=== PATIENT | female | born 2000 | race Caucasian/White ===

== ENCOUNTER 2019-05-31 14:27 | Emergency (ER) | payer MEDICAID, SELFPAY ==
[2019-05-31 14:28] VITALS: BP 165/89; PULSE 95; RESP 15; TEMP 36.1; O2SAT 100; BMI 23.3
--- NOTE | 2019-05-31 14:39 | ED.DCSUM_ITS ---
History of Present Illness Chief Complaint: Female C/O Detail of Chief Complaint: Irregular period Informant: Patient Onset: Weeks Current Severity: Mild Maximum Severity: Mild Narrative: Patient presents with irregular period. She states she is normally very regular with her menstrual cycle. This time she was 2 weeks late for her. But blood her normal 4 days. After her bleeding had stopped she restarted bleeding after 2 days, this is on May 28. Bleeding at this time was very heavy with large clots. Patient states the bleeding is improved. She is only changing a tampon or pad every 4 hours or so. She denies vaginal discharge. She is having abdominal cramping. Past Medical History - Allergies and Home Meds Allergies/Adverse Reactions: Allergies No Known Allergies Allergy (Verified 05/31/19 14:28) Primary Care Physician: Bette Alejandra MD [Primary Care Provider] - Doctors: Dr. Dyer Prior records reviewed: Yes Past Medical History: - - Reviewed Surgical History: no surgical history Lives: With Family Smoking Status: Never smoker Review of Systems General: Denies: Chills, Fever Eyes: Denies: Visual changes - bilaterally ENT: Denies: Bilateral ear pain Cardiovascular: Denies: Chest pain Respiratory: Denies: Dyspnea, Cough Gastrointestinal: Reports: Abdominal pain. Denies: Nausea, Vomiting, Diarrhea Genitourinary: Denies: Dysuria Musculoskeletal: Denies: Extremity Pain Skin: Denies: Rash Neurological: Denies: Headache Endocrine: Denies: Polyuria, Polydipsia Allergy: Denies: Uticaria Physical Exam Vital Signs/Narrative: Vital Signs Temp Pulse Resp BP Pulse Ox 05/31/19 14:28 97.0 F L 95 15 165/89 H 100 Inital Vital Signs reviewed: Yes General: Well nourished, Well developed Head: Normocephalic ENT: Moist mucous membranes Neck: Supple Cardiovascular: Regular rate, Regular rhythm Respiratory: No distress, CTA bilaterally Abdomen: Soft, Tender - Mild supra pubic tenderness.. Negative for: Guarding, Rebound tenderness Extremities: Nontender Skin: Normal color Neurological: Alert, Oriented x3 Psychological: Normal affect Diagnostic/Tx/Re-eval Impressions Obstetrics Ultrasound 05/31/19 16:45 IMPRESSION: * No evidence of an IUP on this study. No visualized acute process. Electronically Signed: Tello Bowden MD at 18:18 EDT , Service support , 05/31/19 16:45 Transvaginal w/Preg US [US] Stat Laboratory Results 05/31/19 05/31/19 05/31/19 15:10 15:20 15:20 WBC 6.4 RBC 4.57 Hgb 13.6 Hct 41.4 MCV 90.6 MCH 29.8 MCHC 32.9 RDW Std Deviation 38.5 RDW Coeff of Gladys 11.6 Plt Count 309 MPV 10.6 Sodium 141 Potassium 3.9 Chloride 105 Carbon Dioxide 28.0 Anion Gap 8 BUN 11 Creatinine 0.78 Estim Creat Clear Calc 94.38 Est GFR (MDRD) Af Amer 119 Est GFR (MDRD) Non-Af 98 BUN/Creatinine Ratio 14.0 Glucose 99 Calcium 9.1 HCG, Quant Urine Color Yellow Urine Clarity Sl Cldy Urine pH 5.0 Ur Specific [place] 1.015 Urine Protein Negative Urine Glucose (UA) Normal Urine Ketones Negative Urine Occult Blood 250 H Urine Nitrite Negative Urine Bilirubin Negative Urine Urobilinogen Normal Ur Leukocyte Esterase Negative Urine RBC 0-5 SEEN Urine WBC 0 SEEN Ur Squamous Epith Cells 0 SEEN Urine Bacteria RARE Urine Mucus 0 SEEN Blood Type 05/31/19 05/31/19 15:20 17:14 WBC RBC Hgb Hct MCV MCH MCHC RDW Std Deviation RDW Coeff of Gladys Plt Count MPV Sodium Potassium Chloride Carbon Dioxide Anion Gap BUN Creatinine Estim Creat Clear Calc Est GFR (MDRD) Af Amer Est GFR (MDRD) Non-Af BUN/Creatinine Ratio Glucose Calcium HCG, Quant 367 H Urine Color Urine Clarity Urine pH Ur Specific [place] Urine Protein Urine Glucose (UA) Urine Ketones Urine Occult Blood Urine Nitrite Urine Bilirubin Urine Urobilinogen Ur Leukocyte Esterase Urine RBC Urine WBC Ur Squamous Epith Cells Urine Bacteria Urine Mucus Blood Type O POSITIVE - Medical Decision Making Patient was given Toradol and IV fluids. Test results are discussed with her. hCG is elevated but ultrasound does not show any evidence of an IUP. She may be very early in or may have miscarried in her a past majority of the products. She will be given a lab order to have her quant repeated in 48 [address] I spoke with Dr. Will and patient is to follow-up in their office. ED Disposition - Plan for ED Patient: Disposition: Home or Assisted Living Diagnosis: Threatened miscarriage Instructions: POSSIBLE MISCARRIAGE (Threatened ) Referrals: Jessica Will MD [STAFF PHYSICIAN] - 3-5 Days Additional Instructions: Have your bloodwork repeated on Sunday afternoon as discussed.
[2019-05-31] MEDS: 0.9% Normal Saline 1,000 ML 150 ML IV (15:20)
[2019-05-31] MEDS: Ketorolac 30 MG/ML Syringe IV (15:24)
[2019-05-31 15:26] LABS: Mucous, Urine 0 SEEN /hpf (<or=2+); Squamous Epithelial Cells - UA 0 SEEN /hpf (5-10); White Blood Cells 0 SEEN /hpf (0-5)
[2019-05-31 15:34] LABS: Glucose, Dipstick Normal (Normal); Ketone-Dipstick Negative (Negative); Leukocyte Esterase-Dipstick Negative /ul (Negative); Nitrite-Dipstick Negative (Negative); Occult Blood-Urine 250 /ul (Negative); Protein-Dipstick Negative (Negative); Specific Gravity, Urine 1.015 (1.002-1.030); Urine Bilirubin Dipstick Negative (Negative); Urine Urobilinogen Normal (Normal)
[2019-05-31 15:38] LABS: Hematocrit 41.4 % (37-47); Hemoglobin 13.6 g/dL (12.0-15.0); Mean Corp Hgb Conc 32.9 g/dL (32-36); Mean Corpuscular Hgb 29.8 pg (27.0-32.0); Mean Corpuscular Volume 90.6 fL (81-99); Mean Platelet Vol. 10.6 fl (6.2-12.0); Platelet Count 309 K/mm3 (150-450); RBC Distribution Width CV 11.6 % (11.6-14.6); RBC Distribution Width SD 38.5 fl (35.1-43.9); Red Blood Count 4.57 M/mm3 (4.2-5.4); White Blood Count 6.4 K/mm3 (4.4-11.0)
[2019-05-31 15:42] LABS: Color, Urine Yellow (Yellow); Urine Clarity Sl Cldy (Clear)
[2019-05-31 15:45] LABS: Anion Gap 8 (5-15); BUN 11 mg/dL (7-18); Calcium,Total 9.1 mg/dL (8.5-10.1); Chloride 105 mmol/L (98-107); Creatinine, Serum 0.78 mg/dL (0.55-1.02); EST Glomerular Filtration Rate 98 mL/min (>60); Est Glom Filt Rate - Afr Amer 119 mL/min (>60); Estimated Creatinine Clearance 94.38 ml/min; Glucose 99 mg/dL (74-106); Potassium 3.9 mmol/L (3.5-5.1); Sodium Level 141 mmol/L (136-145)
[2019-05-31 15:48] LABS: Bacteria RARE /hpf (None Seen); Red Blood Cells-Urine 0-5 SEEN /hpf (0-5)
[2019-05-31 15:49] LABS: hCG Titer Quant., Serum 367 mIU/mL (1-3)
[2019-05-31 16:18] VITALS: RESP 16
[2019-05-31 16:40] VITALS: BP 98/53; PULSE 55; RESP 12; O2SAT 99
--- NOTE | 2019-05-31 16:45 | US_ITS ---
STUDY: FIRST TRIMESTER OBSTETRICAL ULTRASOUND REASON FOR EXAM: Female, 19 years old SBleedingSUS Transvag with TECHNIQUE: Transabdominal and Transvaginal TECHNICAL QUALITY: Adequate. PRIOR ULTRASOUND: None. FINDINGS: There is no demonstrated intrauterine gestational sac. The There is no demonstrated yolk sac. There is no demonstrated embryo ( pole). The uterus measures 7.2 x 4.9 x 3.8 cm. There is no demonstrated uterine fibroid. The cervix is closed. Normal endometrial echo measuring 7.3 mm. The right ovary measures 3.4 x 1.7 cm. There is no right ovarian cyst. There is no visualized right adnexal mass or complex lesion. The left ovary measures 2.3 x 1.6 cm. There is no left ovarian cyst. There is no visualized left adnexal mass or complex lesion. There is no fluid in the cul de sac. US/Transvaginal w/Preg US IMPRESSION: * No evidence of an IUP on this study. No visualized acute process. Electronically Signed: Tello Bowden MD at 18:18 EDT , Service support ,
[2019-05-31 18:39] VITALS: BP 104/67; PULSE 64; RESP 12; O2SAT 98
== END 2019-05-31 19:23 | disposition home or self-care (01) ==
PROVIDERS: Emergency Provider Emergency Medicine; Family Provider Pediatrics; PCP Pediatrics
DX: O20.0 Threatened abortion (principal)
CPT/HCPCS: 36415; 76817; 80048; 81001; 84702; 85027; 86900; 86901; 96361; 96374; 99283; J7030; A4216

== ENCOUNTER → 2019-06-02 | Outpatient (CLI) | payer MEDICAID, SELFPAY ==
[2019-05-31 14:28] VITALS: BMI 23.3
[2019-06-02 18:20] LABS: hCG Titer Quant., Serum 214 mIU/mL (1-3)
== END | disposition home or self-care (01) ==
PROVIDERS: Family Provider Pediatrics; PCP Pediatrics; Referring Provider Emergency Medicine; Visit Provider Emergency Medicine
DX: O46.90 Antepartum hemorrhage, unspecified, unspecified trimester (principal); Z3A.00 Weeks of gestation of pregnancy not specified
CPT/HCPCS: 36415; 84702

== ENCOUNTER 2019-10-09 21:33 | Emergency (ER) | payer MEDICAID, SELFPAY ==
[2019-10-09 21:34] VITALS: BP 128/97; PULSE 79; RESP 18; TEMP 36.7; O2SAT 99; BMI 24.5
--- NOTE | 2019-10-09 22:13 | US_ITS ---
STUDY: FIRST TRIMESTER OBSTETRICAL ULTRASOUND REASON FOR EXAM: Female, 19 years old N AND V LMP: 08/21/2019 TECHNIQUE: Transvaginal TECHNICAL QUALITY: Adequate. PRIOR ULTRASOUND: None. FINDINGS: There is visualization of a single gestational sac in a normal intrauterine position. The mean sac diameter (MSD) measures 2.1 cm, indicating an estimated gestational age (EGA) of 7 weeks, 1 days. The gestational sac shape is within normal limits. There is a visualized yolk sac. The yolk sac measures 0.28 mm. The placenta is non-visualized. There is visualization of a live embryo. The crown-rump length (CRL) measures 0.79 cm, indicating an estimated gestational age (EGA) of 6 weeks, 6 days. There is demonstrated cardiac activity with a heart rate of 122 bpm. The estimated gestation age (EGA) by LMP is 7 weeks, 0 days. The estimated date of delivery (CAM[place]) by LMP is 05/27/2020. The estimated gestation age (EGA) by US is 7 weeks, 0 days. The estimated date of delivery (CAM[place]) by US is 05/27/2020. The uterus measures 8.1 x 6.9 x 4.6. There is no demonstrated uterine fibroid. The cervix is closed. The right ovary measures 2.7 x 2.3 x 1.3. Hypoechoic region within the right ovary consistent with cyst measuring 1.2 x 1.3 x 0.8 cm. There is no visualized right adnexal mass or complex lesion. The left ovary measures 2.8 x 1.9 x 1.5. There is no left ovarian cyst. There is no visualized left adnexal mass or complex lesion. There is no fluid in the cul de sac. US/Transvaginal w/Preg US IMPRESSION: 1. Live intrauterine with estimated gestational age by ultrasound of 7 weeks and 0 days with estimated date of confinement 05/27/2020. Electronically Signed: Félix Sewell DO at 23:42 EDT , Service support ,
[2019-10-09] MEDS: 0.9% Normal Saline 1,000 ML 1000 ML IV (22:52)
[2019-10-09] MEDS: Ondansetron 4 MG/2 ML Vial IV (22:52)
[2019-10-09] MEDS: Acetaminophen 500 MG Tablet 1000 MG PO (22:52)
[2019-10-09 23:14] LABS: Bacteria 0 SEEN /hpf (None Seen); Mucous, Urine 0 SEEN /hpf (<or=2+)
[2019-10-09 23:34] LABS: Color, Urine Yellow (Yellow); Glucose, Dipstick Normal (Normal); Leukocyte Esterase-Dipstick Negative /ul (Negative); Nitrite-Dipstick Negative (Negative); Occult Blood-Urine 25 /ul (Negative); Protein-Dipstick 30 mg/dl (Negative); Specific Gravity, Urine 1.025 (1.002-1.030); Urine Clarity Sl. Cloudy (Clear); Urine Urobilinogen Normal (Normal)
[2019-10-09 23:38] LABS: Urine Bilirubin Dipstick 1 mg/dL (Negative)
[2019-10-09 23:45] LABS: Absolute Lymphocyte Count 1.94 X10^3/uL (0.83-4.51); Absolute Neutrophil Count 7.3 X10^3/uL (2.0-7.7); Basophil# 0.02 X10^3/uL; Basophil% 0.2 % (0-1); Eosinophil# 0.01 X10^3/uL; Eosinophils% 0.1 % (0-5); Hematocrit 36.1 % (37-47); Hemoglobin 12.6 g/dL (12.0-15.0); Lymphocyte # 1.94 X10^3/ul (4.0); Lymphocyte % 19.4 % (19-41); Mean Corp Hgb Conc 34.9 g/dL (32-36); Mean Corpuscular Hgb 30.9 pg (27.0-32.0); Mean Corpuscular Volume 88.5 fL (81-99); Mean Platelet Vol. 10.4 fl (6.2-12.0); Monocyte# 0.65 X10^3/uL; Monocyte% 6.5 % (0-10); NRBC Flagged by Analyzer 0 % (0-5); Neutrophil # 7.34 X10^3/uL (2.7-7.7); Neutrophil % 73.6 % (47-70); Platelet Count 317 K/mm3 (150-450); RBC Distribution Width CV 11.7 % (11.6-14.6); RBC Distribution Width SD 37.2 fl (35.1-43.9); Red Blood Count 4.08 M/mm3 (4.2-5.4)
[2019-10-09 23:58] LABS: Ketone-Dipstick 150 mg/dl (Negative)
[2019-10-10 00:26] LABS: Red Blood Cells-Urine 10-25 SEEN /hpf (0-5); Squamous Epithelial Cells - UA 10-25 SEEN /hpf (5-10); White Blood Cells 10-25 SEEN /hpf (0-5)
[2019-10-10 00:34] LABS: Anion Gap 11 (5-15); BUN 12 mg/dL (7-18); BUN/Creat Ratio 20.8 RATIO (10-20); Chloride 106 mmol/L (98-107); Creatinine, Serum 0.58 mg/dL (0.55-1.02); EST Glomerular Filtration Rate 140 mL/min (>60); Est Glom Filt Rate - Afr Amer 169 mL/min (>60); Estimated Creatinine Clearance 121.35 ml/min; Glucose 88 mg/dL (74-106); Potassium 3.6 mmol/L (3.5-5.1); Sodium Level 139 mmol/L (136-145)
--- NOTE | 2019-10-10 00:44 | ED.VISSUMM ---
- ER Visit Summary Date of Service: 10/10/19 Chief Complaint: Vomiting and History of Present Illness: The patient is a 19 F who cannot remember the name of her OB. She reports she has an appointment in 4 days. She has not seen her for this . She is a 4 weeks by her last menstrual period. She had a miscarriage in April 2019. Patient reports that she is had nausea for the past 2 weeks. She reports she is vomiting proximate 10 times a day. No blood in her emesis. She has had diarrhea on and off. She had a bowel movement today that was solid. She denies any blood in her stools or black tarry stools. She reports that she has a sharp lower left pain that began on the right over here. It is 7 out of 10 at worst and 6 out of 10 currently. Is worsened by nothing relieved by heating pad. She denies any other complaints. No dysuria or frequency. Physical Examination: Vitals: Stable. Afebrile. General: Well-nourished and well-developed. Head: Normocephalic atraumatic. Neck: Supple, no lymphadenopathy. No JVD. Nontender. Cardiovascular: Regular rate and rhythm. No murmurs. Respiratory: No respiratory distress. Clear to auscultation bilaterally. Abdominal: Soft, mild suprapubic tenderness to palpation, nondistended, normal bowel sounds. No guarding, rebound, or peritoneal signs. Back: Nontender. Extremities: Nontender, no edema. Skin: Normal color, no rash. Neurologic: Alert and oriented ?3. Cranial nerves II through XII are intact. Normal strength and sensation. Psych: Normal affect. Test Results: CBC shows hematocrit of 36.1 segmented for 74. Chem-7 shows a BUN/creatinine ratio of 20.8. UA is contaminated. 10-25 epithelial cells, 10-25 red blood cells, 10-25 white blood cells. There is no bacteria. This was sent for culture. Clinical Impression(s) from Imaging Studies Obstetrics Ultrasound 10/09/19 22:13 IMPRESSION: 1. Live intrauterine with estimated gestational age by ultrasound of 7 weeks and 0 days with estimated date of confinement 05/27/2020. Electronically Signed: Félix Sewell DO at 23:42 EDT , Service support , Emergency Department Course and Treatment: Patient was treated with a dose of Zofran. She was given a liter normal saline. She is actually eating in the room now and is resting comfortably. Treatment Plan: Patient be discharged instructions to follow-up with her OB in 4 days previously scheduled. She given prescription for Zofran. Return to the emergency department for any worsening symptoms. Disposition: To home in improved and stable condition. Impression: 1. First trimester . 2. Vomiting. This note was generated with [employer] software. It may contain incorrect words, spelling, and punctuation that were not noted in review of the chart prior to signing ED Disposition - Plan for ED Patient: Instructions: Hyperemesis Gravidarum (Severe Morning Sickness) Prescriptions: Ondansetron [Zofran Odt] 4 mg PO Q8H PRN PRN #10 tablet PRN Reason: Nausea Referrals: Doctor,Your [STAFF PHYSICIAN] - Keep Luis Enrique appointment
[2019-10-10 01:04] VITALS: BP 104/77; PULSE 67; RESP 12; O2SAT 97
[2019-10-10 01:47] LABS: hCG Titer Quant., Serum 54961 mIU/mL (1-3)
== END 2019-10-10 01:04 | disposition home or self-care (01) ==
LOC: ED 21:55
PROVIDERS: Emergency Provider Emergency Medicine
DX: O21.9 Vomiting of pregnancy, unspecified (principal); Z3A.01 Less than 8 weeks gestation of pregnancy
CPT/HCPCS: 76817; 80048; 81001; 84702; 85025; 87086; 87088; 96361; 96374; 99284; J7030; A4216; J2405

== ENCOUNTER → 2019-11-07 15:20 | Outpatient (CLI) | payer MEDICAID, SELFPAY ==
[2019-10-09 21:34] VITALS: BMI 24.5
[2019-11-07 17:06] LABS: Absolute Lymphocyte Count 1.42 X10^3/uL (0.83-4.51); Absolute Neutrophil Count 7.9 X10^3/uL (2.0-7.7); Basophil# 0.03 X10^3/uL; Basophil% 0.3 % (0-1); Eosinophil# 0.05 X10^3/uL; Eosinophils% 0.5 % (0-5); Hematocrit 37.5 % (37-47); Hemoglobin 12.9 g/dL (12.0-15.0); Lymphocyte # 1.42 X10^3/ul (4.0); Lymphocyte % 14.2 % (19-41); Mean Corp Hgb Conc 34.4 g/dL (32-36); Mean Corpuscular Hgb 30.2 pg (27.0-32.0); Mean Corpuscular Volume 87.8 fL (81-99); Mean Platelet Vol. 11.9 fl (6.2-12.0); Monocyte# 0.59 X10^3/uL; Monocyte% 5.9 % (0-10); NRBC Flagged by Analyzer 0 % (0-5); Neutrophil % 78.7 % (47-70); Platelet Count 245 K/mm3 (150-450); RBC Distribution Width CV 11.9 % (11.6-14.6); RBC Distribution Width SD 37.6 fl (35.1-43.9); Red Blood Count 4.27 M/mm3 (4.2-5.4)
[2019-11-07 17:57] LABS: Color, Urine Yellow (Yellow); Glucose, Dipstick Normal (Normal); Ketone-Dipstick 15 mg/dl (Negative); Leukocyte Esterase-Dipstick 25 /ul (Negative); Nitrite-Dipstick Negative (Negative); Occult Blood-Urine Negative /ul (Negative); Protein-Dipstick 15 mg/dl (Negative); Specific Gravity, Urine 1.025 (1.002-1.030); Urine Bilirubin Dipstick Negative (Negative); Urine Clarity Cloudy (Clear); Urine Urobilinogen 1 mg/dl (Normal)
[2019-11-07 18:04] LABS: Amphetamine Urine VISTA NEGATIVE (<1000 ng/mL); Barbiturate Urine VISTA NEGATIVE (< 200 ng/mL); Benzodiazepine Urine VISTA NEGATIVE (< 200 ng/mL); Cocaine Urine VISTA NEGATIVE (< 300 ng/mL); Ecstacy Urine VISTA NEGATIVE (< 500 ng/mL); Methadone Urine VISTA NEGATIVE (< 300 ng/mL); PCP Urine VISTA NEGATIVE (< 25 ng/mL); THC Urine VISTA POSITIVE (< 50 ng/mL); Thyroid Stim Hormone (TSH) 1.08 uIU/mL (0.358-3.74); Vista UDS pH Range 6
[2019-11-10 10:28] LABS: HIV - WCH Non-Reactive (Nonreactive); Hepatitis B Surface Antigen Non-Reactive (Nonreactive); Hepatitis C Antibody Non-Reactive (Nonreactive); Rubella IgG 8.5 IU/mL
[2019-11-11 20:07] LABS: Chlamydia By Nucleic Acid AMP Negative (Negative)
[2019-11-12 03:49] LABS: Gonococcus By Nucleic Acid AMP Negative (Negative)
[2019-11-13 00:57] LABS: Prenatal RPR NONREACTIVE (NONREACTIVE)
[2019-11-13 17:56] LABS: HPV Reflexed? NOT INDICATED
== END ==
PROVIDERS: Referring Provider Obstetrics & Gynecology; Visit Provider Obstetrics & Gynecology
DX: Z34.81 Encounter for supervision of other normal pregnancy, first trimester (principal)
CPT/HCPCS: 80307; 81002; 84443; 85025; 86703; 86762; 86803; 87340; 87491; 87591; 88175; G0145

== ENCOUNTER → 2020-03-03 09:33 | Outpatient (CLI) | payer MEDICAID, SELFPAY ==
[2020-03-03 10:50] LABS: Hematocrit 31.9 % (37-47); Hemoglobin 11.1 g/dL (12.0-15.0); Mean Corp Hgb Conc 34.8 g/dL (32-36); Mean Corpuscular Hgb 33.2 pg (27.0-32.0); Mean Corpuscular Volume 95.5 fL (81-99); Platelet Count 263 K/mm3 (150-450); RBC Distribution Width CV 13.1 % (11.6-14.6); RBC Distribution Width SD 43.8 fl (35.1-43.9); Red Blood Count 3.34 M/mm3 (4.2-5.4); White Blood Count 10.9 K/mm3 (4.4-11.0)
[2020-03-03 10:57] LABS: Glucose Challenge Gest 1H 50g 115 mg/dL (70-140)
[2020-03-03 11:04] LABS: Amphetamine Urine VISTA NEGATIVE (<1000 ng/mL); Barbiturate Urine VISTA NEGATIVE (< 200 ng/mL); Benzodiazepine Urine VISTA NEGATIVE (< 200 ng/mL); Cocaine Urine VISTA NEGATIVE (< 300 ng/mL); Ecstacy Urine VISTA NEGATIVE (< 500 ng/mL); Methadone Urine VISTA NEGATIVE (< 300 ng/mL); PCP Urine VISTA NEGATIVE (< 25 ng/mL); THC Urine VISTA NEGATIVE (< 50 ng/mL); Vista UDS pH Range 6
== END ==
PROVIDERS: Visit Provider Obstetrics & Gynecology
DX: Z34.82 Encounter for supervision of other normal pregnancy, second trimester (principal); F12.90 Cannabis use, unspecified, uncomplicated
CPT/HCPCS: 36415; 80307; 82950; 85027

== ENCOUNTER → 2020-04-21 13:08 | Outpatient (CLI) | payer MEDICAID, SELFPAY ==
[2020-04-21 14:03] LABS: Color, Urine Yellow (Yellow); Glucose, Dipstick Normal (Normal); Ketone-Dipstick 5 mg/dl (Negative); Leukocyte Esterase-Dipstick 25 /ul (Negative); Nitrite-Dipstick Negative (Negative); Occult Blood-Urine Negative /ul (Negative); Protein-Dipstick 30 mg/dl (Negative); Urine Bilirubin Dipstick Negative (Negative); Urine Clarity Clear (Clear); Urine Urobilinogen Normal (Normal); Urine pH 6.5 (5.0 - 8.0)
[2020-04-21 14:08] LABS: Hematocrit 28.8 % (37-47); Hemoglobin 9.5 g/dL (12.0-15.0); Mean Corpuscular Hgb 29.1 pg (27.0-32.0); Mean Corpuscular Volume 88.1 fL (81-99); Mean Platelet Vol. 11.3 fl (6.2-12.0); Platelet Count 263 K/mm3 (150-450); RBC Distribution Width SD 41.2 fl (35.1-43.9); Red Blood Count 3.27 M/mm3 (4.2-5.4); White Blood Count 9.5 K/mm3 (4.4-11.0)
[2020-04-21 14:10] LABS: Mucous, Urine 4+ /hpf (<or=2+); Squamous Epithelial Cells - UA 5-10 SEEN /hpf (5-10)
[2020-04-21 14:11] LABS: Calcium Oxalate Crystals Ur 2+ /hpf (<or=2+)
[2020-04-21 14:12] LABS: Bacteria 2+ /hpf (None Seen); Red Blood Cells-Urine 0-5 SEEN /hpf (0-5); White Blood Cells 0-5 SEEN /hpf (0-5)
[2020-04-21 14:14] LABS: AST(SGOT) 21 U/L (15-37); Alanine Aminotransfer ALT/SGPT 17 U/L (13-56); Creatinine, Serum 0.73 mg/dL (0.55-1.02); EST Glomerular Filtration Rate 106 mL/min (>60); Est Glom Filt Rate - Afr Amer 128 mL/min (>60); Uric Acid 5.1 mg/dL (2.6-6.0)
[2020-04-21 14:23] LABS: Prothrombin Time (Protime)PT. 12.7 SECONDS (11.7-14.9)
[2020-04-21 14:24] LABS: Partial Thromboplast Time 26.8 Seconds (24.1-36.2)
== END ==
PROVIDERS: Visit Provider Obstetrics & Gynecology
DX: O13.9 Gestational [pregnancy-induced] hypertension without significant proteinuria, unspecified trimester (principal); Z3A.00 Weeks of gestation of pregnancy not specified
CPT/HCPCS: 36415; 81001; 82565; 84450; 84460; 84550; 85027; 85610; 85730

== ENCOUNTER 2020-04-24 11:15 | Outpatient (CLI) | payer MEDICAID, SELFPAY ==
[2020-04-24 11:35] VITALS: BMI 33.4
--- NOTE | 2020-04-24 17:35 | OB.TRI.NOTE ---
History of Present Illness Date of Service: 04/24/20 Was patient seen by the physician?: No Reason For Visit: R/O LABOR Date of Service: 04/24/20 Final CAMILLE: 05/27/20 Gestational age: 35 Weeks and 2 Days History of Present Illness: 19-year-old G2, P0 at 35 weeks and 2 days arrives to triage with complaints of back pain and leg pain. Denies headache, visual changes, chest pain, shortness of breath, right upper quadrant pain. Denies vaginal bleeding, leakage of fluid. States good movement Allergies No Known Allergies Allergy (Verified 04/24/20 11:36) Review of Systems Constitutional: Denies: Chills, Fever, Weight Change HEENT: Denies: Head Aches, Sinus Congestion, Sinus Drainage Cardiovascular: Denies: Chest Pain, Palpitations Respiratory: Denies: Cough, Shortness of breath at rest, Sputum production Gastrointestinal: Denies: Abdominal Pain, Nausea, Vomiting Genitourinary: Denies: Dysuria Musculoskeletal: Denies: Joint Pain, Joint Tenderness Skin: Denies: Rash, Wounds Neurological: Denies: Numbness, Tingling, Focal weakness Psychiatric: Denies: Anxiety, Depression, Homicidal Ideations, Suicidal Ideations Hematologic/ Lymphatic: Denies: Easy Bruising, Easy Bleeding NST - FHR Rate Baby A Baseline: 140 Variability:: Moderate Accelerations:: 15 x 15 Decelerations:: None NST Reactive:: Yes Uterine Activity:: Quiet Impression/Plan 19-year-old G2, P0 with back pain lower leg pain likely all normal physiologic changes of third trimester . Blood pressure within normal limits no signs of preeclampsia. [place] quiet no signs of labor. heart tones reassuring. To discharge home and follow-up on Sunday at scheduled appointment.
== END 2020-04-24 12:25 | disposition home or self-care (01) ==
LOC: WPOUT 11:33 → WP 04-27 10:54
PROVIDERS: Referring Provider Obstetrics & Gynecology; Visit Provider Obstetrics & Gynecology
DX: O26.893 Other specified pregnancy related conditions, third trimester (principal); M54.5 Low back pain; M79.669 Pain in unspecified lower leg; Z3A.35 35 weeks gestation of pregnancy
CPT/HCPCS: 59025; 59050; 99218; G0378

== ENCOUNTER → 2020-04-26 14:05 | Outpatient (CLI) | payer MEDICAID, SELFPAY ==
[2020-04-24 11:35] VITALS: BMI 33.4
[2020-04-26 16:52] LABS: Hematocrit 30.3 % (37-47); Hemoglobin 9.6 g/dL (12.0-15.0); Mean Corp Hgb Conc 31.7 g/dL (32-36); Mean Corpuscular Hgb 28.1 pg (27.0-32.0); Mean Corpuscular Volume 88.6 fL (81-99); Mean Platelet Vol. 11.7 fl (6.2-12.0); Platelet Count 272 K/mm3 (150-450); RBC Distribution Width CV 13.2 % (11.6-14.6); RBC Distribution Width SD 42.8 fl (35.1-43.9); Red Blood Count 3.42 M/mm3 (4.2-5.4); White Blood Count 11.4 K/mm3 (4.4-11.0)
[2020-04-26 17:03] LABS: ALB/GLOB Ratio 0.6 RATIO (0.9-2.4); AST(SGOT) 17 U/L (15-37); Alanine Aminotransfer ALT/SGPT 15 U/L (13-56); Albumin, Serum 2.2 g/dL (3.2-5.0); Alkaline Phosphatase 153 U/L (45-117); Anion Gap 7 (5-15); BUN 10 mg/dL (7-18); BUN/Creat Ratio 12.7 RATIO (10-20); Calcium,Total 8.8 mg/dL (8.5-10.1); Chloride 111 mmol/L (98-107); Creatinine, Serum 0.79 mg/dL (0.55-1.02); EST Glomerular Filtration Rate 97 mL/min (>60); Est Glom Filt Rate - Afr Amer 117 mL/min (>60); Glucose 108 mg/dL (74-106); LDH 190 U/L (84-246); Protein, Total 6.2 g/dL (6.4-8.2); Sodium Level 138 mmol/L (136-145)
[2020-04-26 17:35] LABS: Protein, Urine (Random) 745.4 mg/dL (<11.9); Protein:Creat Ratio 1675 mg/g CRE (0-200)
== END ==
PROVIDERS: Visit Provider Student in an Organized Health Care Education/Training Program
DX: O13.9 Gestational [pregnancy-induced] hypertension without significant proteinuria, unspecified trimester (principal); Z3A.00 Weeks of gestation of pregnancy not specified
CPT/HCPCS: 36415; 80053; 82570; 83615; 84156; 85027; 87086; 87088

== ENCOUNTER 2020-04-30 17:25 | Inpatient (IN) | payer MEDICAID, SELFPAY ==
[2020-04-30] VITALS (50 sets, daily range): BP systolic 128–165; BP diastolic 86–109; PULSE 70–95; RESP 14–18; TEMP 36.5–37.1; O2SAT 97–100; BMI 35.2
[2020-04-30 15:10] LABS: Hematocrit 29.5 % (37-47); Hemoglobin 9.6 g/dL (12.0-15.0); Mean Corp Hgb Conc 32.5 g/dL (32-36); Mean Corpuscular Hgb 28.5 pg (27.0-32.0); Mean Corpuscular Volume 87.5 fL (81-99); Mean Platelet Vol. 11.5 fl (6.2-12.0); Platelet Count 260 K/mm3 (150-450); RBC Distribution Width CV 13.4 % (11.6-14.6); RBC Distribution Width SD 42.1 fl (35.1-43.9); Red Blood Count 3.37 M/mm3 (4.2-5.4); White Blood Count 9.7 K/mm3 (4.4-11.0)
[2020-04-30 15:17] LABS: International Normalized Ratio 0.9
[2020-04-30 15:26] LABS: AST(SGOT) 16 U/L (15-37); Alanine Aminotransfer ALT/SGPT 14 U/L (13-56); Creatinine, Serum 0.79 mg/dL (0.55-1.02); EST Glomerular Filtration Rate 96 mL/min (>60); Est Glom Filt Rate - Afr Amer 116 mL/min (>60); Estimated Creatinine Clearance 89.09 ml/min; Uric Acid 5.8 mg/dL (2.6-6.0)
--- NOTE | 2020-04-30 15:57 | OB.TRI.NOTE ---
History of Present Illness Reason For Visit: MONITORING BP Allergies No Known Allergies Allergy (Verified 04/30/20 15:13) Laboratory Studies: Laboratory Tests 04/30/20 04/30/20 04/30/20 Range/Units 14:30 14:30 14:30 WBC 9.7 (4.4-11.0) K/mm3 RBC 3.37 L (4.2-5.4) M/mm3 Hgb 9.6 L (12.0-15.0) g/dL Hct 29.5 L (37-47) % MCV 87.5 (81-99) fL MCH 28.5 (27.0-32.0) pg MCHC 32.5 (32-36) g/dL RDW Std Deviation 42.1 (35.1-43.9) fl RDW Coeff of Gladys 13.4 (11.6-14.6) % Plt Count 260 (150-450) K/mm3 MPV 11.5 (6.2-12.0) fl PT 12.0 (11.7-14.9) SECONDS INR 0.9 APTT 28.0 (24.1-36.2) Seconds Creatinine 0.79 (0.55-1.02) mg/dL Estim Creat Clear Calc 89.09 ml/min Est GFR (MDRD) Af Amer 116 (>60) mL/min Est GFR (MDRD) Non-Af 96 (>60) mL/min Uric Acid 5.8 (2.6-6.0) mg/dL AST 16 (15-37) U/L ALT 14 (13-56) U/L Physical Exam Vitals: Vital Signs Temp Pulse BP Pulse Ox 98.1 F 82 140/92 H 98 04/30/20 14:55 04/30/20 15:51 04/30/20 15:51 04/30/20 14:55
--- NOTE | 2020-04-30 15:58 | PN_ITS ---
Progress Note CC: elevated BP in office Subjective: HPI: 19 yo at 36/1w, CAMILLE 05/27/20 by 15w US, presenting from office with elevated BPs. BP was 150/100s and repeat 178/110. Reports mild tension headache today, has not taken any tylenol. No vision changes. No RUQ pain, no nausea/emesis, chest pain dyspnea. +FM. Denies LOF, VB, regular contractions. complicated by: pre-eclampsia, history of migraines, rubella equivocal, history of anxiety/depression OB Hx: G1: 5w SAB G2: current Medical Hx: history of migraines, rubella equivocal, history of anxiety/depression Surgical Hx: Allergies: Medications: Fioricet ROS: otherwise negative aside from noted above Physical exam: Vital Signs - 24 hr 04/30/20 14:10 04/30/20 14:21 04/30/20 14:36 Temperature Pulse Rate 88 93 89 Blood Pressure 161/104 H 155/104 H 141/93 H Pulse Ox 04/30/20 14:41 04/30/20 14:51 04/30/20 14:55 Temperature 98.1 F Pulse Rate 95 88 Blood Pressure 136/86 H 141/94 H Pulse Ox 98 04/30/20 15:03 04/30/20 15:13 04/30/20 15:21 Temperature Pulse Rate 85 79 86 Blood Pressure 140/97 H 154/95 H 146/89 H Pulse Ox 04/30/20 15:31 04/30/20 15:41 04/30/20 15:51 Temperature Pulse Rate 81 78 82 Blood Pressure 147/91 H 144/90 H 140/92 H Pulse Ox 04/30/20 16:01 Temperature 97.7 F L Pulse Rate 86 Blood Pressure 136/90 H Pulse Ox 98 Gen: NAD CARDIORESP: no increased effort ABDOMEN: soft, gravid, no RUQ pain EXT: +2 edema Neuro: CN 2-12 grossly intact, DTRs 2/4 bilaterally FHR: 150/mod gladys/+accel/no decels [place]: quiet Labs: Laboratory Results - last 24 hr 04/30/20 04/30/20 04/30/20 14:30 14:30 14:30 WBC 9.7 RBC 3.37 L Hgb 9.6 L Hct 29.5 L MCV 87.5 MCH 28.5 MCHC 32.5 RDW Std Deviation 42.1 RDW Coeff of Gladys 13.4 Plt Count 260 MPV 11.5 PT 12.0 INR 0.9 APTT 28.0 Creatinine 0.79 Estim Creat Clear Calc 89.09 Est GFR (MDRD) Af Amer 116 Est GFR (MDRD) Non-Af 96 Uric Acid 5.8 AST 16 ALT 14 19 yo at 36/1w, CAM[place] 05/27/20 by 15w US, presenting from office with elevated BPs. complicated by: pre-eclampsia, history of migraines, rubella equivocal, history of anxiety/depression. -NST reactive -BP elevated in severe range upon admission, however improved since that time. Labs are stable and wnl. Her creatinine has been about .7 for over 1w, stable. BPs now in severe range. Will give 20 mg IV labetolol. 6 gm mag sulfate bolus followed by 2g/hr. Mag level q6hr. Admit for induction of labor for severe pre- eclampsia based on severe range BPs. Induction via pitocin and blackwell bulb. STROKE Vital Signs/Narrative: Vital Signs Temp Pulse BP Pulse Ox 04/30/20 15:51 82 140/92 H 04/30/20 15:41 78 144/90 H 04/30/20 15:31 81 147/91 H 04/30/20 15:21 86 146/89 H 04/30/20 15:13 79 154/95 H 04/30/20 15:03 85 140/97 H 04/30/20 14:55 98.1 F 98 04/30/20 14:51 88 141/94 H 04/30/20 14:41 95 136/86 H 04/30/20 14:36 89 141/93 H 04/30/20 14:21 93 155/104 H 04/30/20 14:10 88 161/104 H
[2020-04-30] MEDS: Acetaminophen/Butalbital/Caffe 1 Tablet PO (16:49)
--- NOTE | 2020-04-30 17:23 | PCM.HPOB.BLA ---
History and Physical Date of Admission: 04/30/20 LIVE [facility] Progress Note (Blank) Patient Name: EDGARD HEATH Date of : 89 Patient Status: Clinical Attending Provider: Kim Cummins Date: 04/30/20 15:58 Initialization Date: 04/30/20 15:58 Progress Note CC: elevated BP in office Subjective: HPI: 19 yo at 36/1w, CAM[place] 05/27/20 by 15w US, presenting from office with elevated BPs. BP was 150/100s and repeat 178/110. Reports mild tension headache today, has not taken any tylenol. No vision changes. No RUQ pain, no nausea/emesis, chest pain dyspnea. +FM. Denies LOF, VB, regular contractions. complicated by: pre-eclampsia, history of migraines, rubella equivocal, history of anxiety/depression OB Hx: G1: 5w SAB G2: current Medical Hx: history of migraines, rubella equivocal, history of anxiety/depression Surgical Hx: denies Allergies: NKDA Medications: Fioricet Family Hx: no hx of blood clots, bleeding disorders. ROS: otherwise negative aside from noted above Physical exam: Vital Signs - 24 hr 04/30/20 14:10 04/30/20 14:21 04/30/20 14:36 Temperature Pulse Rate 88 93 89 Blood Pressure 161/104 H 155/104 H 141/93 H Pulse Ox 04/30/20 14:41 04/30/20 14:51 04/30/20 14:55 Temperature 98.1 F Pulse Rate 95 88 Blood Pressure 136/86 H 141/94 H Pulse Ox 98 04/30/20 15:03 04/30/20 15:13 04/30/20 15:21 Temperature Pulse Rate 85 79 86 Blood Pressure 140/97 H 154/95 H 146/89 H Pulse Ox 04/30/20 15:31 04/30/20 15:41 04/30/20 15:51 Temperature Pulse Rate 81 78 82 Blood Pressure 147/91 H 144/90 H 140/92 H Pulse Ox 04/30/20 16:01 Temperature 97.7 F L Pulse Rate 86 Blood Pressure 136/90 H Pulse Ox 98 Gen: NAD CARDIORESP: no increased effort ABDOMEN: soft, gravid, no RUQ pain EXT: +2 edema Neuro: CN 2-12 grossly intact, DTRs 2/4 bilaterally CE: in office /-3 FHR: 150/mod gladys/+accel/no decels [place]: quiet Labs: Laboratory Results - last 24 hr 04/30/20 04/30/20 04/30/20 14:30 14:30 14:30 WBC 9.7 RBC 3.37 L Hgb 9.6 L Hct 29.5 L MCV 87.5 MCH 28.5 MCHC 32.5 RDW Std Deviation 42.1 RDW Coeff of Gladys 13.4 Plt Count 260 MPV 11.5 PT 12.0 INR 0.9 APTT 28.0 Creatinine 0.79 Estim Creat Clear Calc 89.09 Est GFR (MDRD) Af Amer 116 Est GFR (MDRD) Non-Af 96 Uric Acid 5.8 AST 16 ALT 14 19 yo at 36/1w, CAM[place] 05/27/20 by 15w US,admitted for pre-eclampsia with severe features. further complicated by: history of migraines, rubella equivocal, history of anxiety/depression. -NST reactive -BPs now in severe range. Will give 20 mg IV labetolol, now getting 40 mg IV labetolol. 6 gm mag sulfate bolus followed by 2g/hr. Mag level q6hr. Admit for induction of labor for severe pre-eclampsia based on severe range BPs. Induction via pitocin and blackwell bulb. Temp Pulse BP Pulse Ox 04/30/20 15:51 82 140/92 H 04/30/20 15:41 78 144/90 H 04/30/20 15:31 81 147/91 H 04/30/20 15:21 86 146/89 H 04/30/20 15:13 79 154/95 H 04/30/20 15:03 85 140/97 H 04/30/20 14:55 98.1 F 98 04/30/20 14:51 88 141/94 H 04/30/20 14:41 95 136/86 H 04/30/20 14:36 89 141/93 H 04/30/20 14:21 93 155/104 H 04/30/20 14:10 88 161/104 H
[2020-04-30] MEDS: Lactated Ringers 1,000 ML 50 ML IV (17:45)
[2020-04-30] MEDS: 0.9% Saline Lock 10 ML Syringe IV (17:47)
[2020-04-30] MEDS: Magnesium Sulfate 4gm/100mL 4 GM/100 ML IV.SOLN. IV (17:49)
[2020-04-30] MEDS: Labetalol (Prefilled) 20 MG/4 ML IV (17:54)
[2020-04-30] MEDS: Magnesium Sulfate 4gm/100mL 2 GM/50 ML IV.SOLN. IV (18:16)
[2020-04-30] MEDS: Magnesium Sulfate 20 GM/500 ML BAG IV (18:30)
[2020-04-30] MEDS: Labetalol (Prefilled) 20 MG/4 ML 40 MG IV ×2 (18:40→21:09)
[2020-04-30] MEDS: 0.9% Normal Saline Single 100 ML IV.SOLN. IY (19:02)
--- NOTE | 2020-04-30 19:03 | PCM.PN.BLA ---
Progress Note CE 60/-3, Sánchez bulb placed. FHR: 135/mod yuri/+accel. Irregular contractions. Pt to get PCN and start pitocin. STROKE Vital Signs/Narrative: Vital Signs Temp Pulse Resp BP Pulse Ox 04/30/20 18:57 86 146/88 H 04/30/20 18:44 89 97 04/30/20 18:39 86 163/102 H 04/30/20 18:29 87 152/99 H 04/30/20 18:20 81 153/96 H 04/30/20 18:09 85 163/109 H 04/30/20 17:59 86 163/107 H 04/30/20 17:55 87 162/105 H 04/30/20 17:52 81 100 04/30/20 17:49 98.6 F 87 14 165/109 H 100 04/30/20 17:39 71 163/100 H 04/30/20 17:20 81 159/108 H 04/30/20 17:10 81 160/104 H 04/30/20 16:59 83 162/105 H 04/30/20 16:58 98.2 F 98 04/30/20 16:41 82 142/103 H 04/30/20 16:31 80 144/95 H 04/30/20 16:21 84 137/92 H 04/30/20 16:11 77 131/87 H 04/30/20 16:01 97.7 F L 86 136/90 H 98 04/30/20 15:51 82 140/92 H 04/30/20 15:41 78 144/90 H 04/30/20 15:31 81 147/91 H 04/30/20 15:21 86 146/89 H 04/30/20 15:13 79 154/95 H
--- NOTE | 2020-04-30 21:26 | PCM.PN.BLA ---
Progress Note LABOR PROGRESS NOTE Reports headache resolved. Denies chest pain, shortness of breath. No contractions. Afebrile, BPs 140s-150s/100s GEN - NAD, AAO x 3 CV RRR PULM CTAB NEURO - no clonus, + 3 b/l UE DTRs, +2 b/l LE DTRs FHR 125, moderate variability, + accelerations, no decelerations TOCO 3/10 min SVE deferred A/P: 19yo G1 @ 36 1/7wga with preeclampsia with severe features on magnesium, Cat I FHR -No si/sx magnesium toxicity -Additional 25mg IV Labetalol given and will order PO maintenance dosing. -Continue to monitor BP closely -Start pitocin with blackwell bulb STROKE Vital Signs/Narrative: Vital Signs Temp Pulse Resp BP Pulse Ox 04/30/20 20:59 78 151/103 H 04/30/20 20:44 71 148/106 H 04/30/20 20:30 98.4 F 89 18 148/106 H 99 04/30/20 20:29 78 141/105 H 04/30/20 20:00 79 134/93 H 04/30/20 19:30 98.3 F 87 16 134/93 H 97 04/30/20 19:27 79 128/86 H 04/30/20 19:17 98.3 F 87 130/87 H 97 04/30/20 19:07 79 139/90 H 04/30/20 18:57 86 146/88 H 04/30/20 18:44 89 97 04/30/20 18:39 86 163/102 H 04/30/20 18:29 87 152/99 H 04/30/20 18:20 81 153/96 H 04/30/20 18:09 85 163/109 H 04/30/20 17:59 86 163/107 H 04/30/20 17:55 87 162/105 H 04/30/20 17:52 81 100 04/30/20 17:49 98.6 F 87 14 165/109 H 100 04/30/20 17:39 71 163/100 H
[2020-04-30] MEDS: Labetalol 200 MG Tablet PO (21:53)
[2020-04-30] MEDS: Oxytocin 30 units/NS 500 ml 30 UNITS/500 ML IV.SOLN IV (21:56)
[2020-05-01] VITALS (107 sets, daily range): BP systolic 69–168; BP diastolic 33–109; PULSE 67–95; RESP 16–20; TEMP 35.7–37; O2SAT 96–100
[2020-05-01] MEDS: Labetalol (Prefilled) 20 MG/4 ML 40 MG IV (01:01)
[2020-05-01] MEDS: Ondansetron 4 MG/2 ML Vial IV ×2 (01:12→20:43)
[2020-05-01] MEDS: Acetaminophen/Butalbital/Caffe 1 Tablet 2 TABLET PO (02:45)
[2020-05-01] MEDS: Magnesium Sulfate 20 GM/500 ML BAG IV ×2 (04:32→14:46)
[2020-05-01] MEDS: Labetalol 200 MG Tablet PO (06:27)
--- NOTE | 2020-05-01 07:57 | PCM.PN.BLA ---
Progress Note LABOR PROGRESS NOTE Denies headache, vision changes. Headache overnight resolved with Fiorect. AVSS GEN - NAD, AAO x 3 RRR LCTAB FHR 110, moderate variability, + accelerations, no decelerations TOCO - 0-2/10 min, difficulty tracing contractions when pt on side SVE 5/60/-3, moderate and midposition A/P: 19yo @ 36 2/7wga, preeclampsia with severe features, Cat I FHR -Amniotomy performed with clear fluid -Continue pitocin as tolerated by mother and fetus -No si/sx worsening preeclampsia -Continue labetalol po STROKE Vital Signs/Narrative: Vital Signs Temp Pulse Resp BP Pulse Ox 05/01/20 07:52 79 129/90 H 05/01/20 07:30 123/81 H 05/01/20 07:22 75 123/81 H 05/01/20 07:19 97.9 F 98 05/01/20 06:52 80 142/91 H 05/01/20 06:32 97.8 F 74 18 147/97 H 99 05/01/20 06:24 97.8 F 74 147/97 H 99 05/01/20 05:52 71 118/81 H 05/01/20 05:30 97.8 F 73 18 143/94 H 99 05/01/20 05:17 73 143/94 H 05/01/20 05:01 77 142/98 H 05/01/20 04:46 98.3 F 81 142/92 H 99 05/01/20 04:31 89 126/85 H 05/01/20 04:30 97.8 F 89 18 126/85 H 99 05/01/20 04:16 77 122/78 H 05/01/20 04:01 124/90 H
[2020-05-01] MEDS: Betamethasone/Betamethasone 30 MG/5 ML Vial 12 MG IM (08:51)
[2020-05-01] MEDS: Lactated Ringers 500 ML 999 ML IV ×3 (10:30→14:33)
[2020-05-01] MEDS: fentaNYL-bupivacaine (epidural) 100 ML BAG EPIDURAL ×3 (11:40→21:53)
[2020-05-01] MEDS: Lactated Ringers 1,000 ML 200 ML IV ×2 (14:48→20:42)
--- NOTE | 2020-05-01 21:41 | PCM.PN.BLA ---
Progress Note LABOR PROGRESS NOTE Reports dizziness. No heart racing, nausea, vomiting, headache, vision changes. AVSS Vital Signs Temp 97.5 F L 05/01/20 20:30 Pulse 82 05/01/20 21:36 Resp 16 05/01/20 21:35 BP 125/86 H 05/01/20 21:36 Pulse Ox 98 05/01/20 21:36 Intake & Output 04/29/20 04/30/20 05/01/20 23:59 23:59 23:59 Intake Total 760.23 / 760.23 5434.74 / 5434.74 Output Total 450 / 450 1255 / 1255 Balance 310.23 / 310.23 4179.74 / 4179.74 Weight: 87.317 kg Intake: Oral 250 / 250 1080 / 1080 Intake, IV Amount 510.23 / 510.23 4354.74 / 4354.74 20GM/500ML 20 gm In 500 ml @ 2 250 / 250 1027.51 / 1027.51 GM/HR 50 mls/hr IV .Q10H [facility] Rx #:[id number] Lactated Ringers 1,000 ML @ 50 1780.00 / 1780.00 mls/hr IV .Q20H [facility] Rx#: [id number] Lactated Ringers 500 ML @ 999 1000 / 1000 mls/hr IV .Q31M PRN Rx#: [id number] Magnesium Sulfate 4gm/100mL 4 50 / 50 GM/100 ML2 gm In 50 ml @ 300 mls/hr IV X1 ONE Rx#:[id number] Magnesium Sulfate 4gm/100mL 4 100 / 100 GM/100 ML4 gm In 100 ml @ 300 mls/hr IV X1 ONE Rx#:[id number] Oxytocin 30 units/NS 500 ml 30 5.23 / 5.23 247.23 / 247.23 UNITS/500 ML30 units In 500 ml @ 2 mls/hr IV .Q250H [facility] Rx#: [id number] Penicillin G Pot 5 MU In 0.9% 105 / 105 Normal Saline 100 ML @ 150 mls/ hr IV X1 ONE Rx#:[id number] Penicillin G Potassium 3 mu In 300 / 300 50 ml @ 100 mls/hr IV Q4H [facility] Rx#:[id number] Output: Urine 450 / 450 1255 / 1255 GEN - NAD, AAO x 3 RRR CTAB FHR 105, moderate variability, +accelerations, no decelerations TOCO 4/ 10 min SVE 8/90/0 by my exam NEURO +1 b/l LE and 2+ UE DTRs, no clonus A/P: 19yo G1 @ 36 2/7wga with preeclampsia with severe features on magnesium, Cat II FHR -No si/sx magnesium toxicity or worsening preeclampsia. -BP recovered following epidural earlier in day with ephedrine, fluid bolus and held PO Labetalol. Will monitor. -FHR with low normal baseline prior with some decreased baseline today - possibly due to beta blockade. Moderate variability preserved, overall reassuring. -Maternal repositioning. STROKE Vital Signs/Narrative: Vital Signs Temp Pulse Resp BP Pulse Ox 05/01/20 21:36 82 125/86 H 98 05/01/20 21:35 80 16 125/86 H 98 05/01/20 20:50 74 115/80 05/01/20 20:30 97.5 F L 90 133/87 H 100 05/01/20 20:29 97.5 F L 95 16 133/87 H 100 05/01/20 19:44 77 128/79 H 05/01/20 19:29 97.6 F L 81 124/79 H 05/01/20 19:28 98 05/01/20 19:27 97.6 F L 81 16 124/79 H 98 05/01/20 18:35 71 16 112/64 98 05/01/20 17:47 96.7 F L
[2020-05-02] VITALS (90 sets, daily range): BP systolic 112–169; BP diastolic 66–102; PULSE 44–202; RESP 16–20; TEMP 36.1–36.8; O2SAT 78–100
[2020-05-02] MEDS: Magnesium Sulfate 20 GM/500 ML BAG IV ×3 (00:36→20:28)
[2020-05-02] MEDS: Oxytocin 30 units/NS 500 ml 30 UNITS/500 ML IV.SOLN 334 UNITS IV (02:04)
--- NOTE | 2020-05-02 02:26 | OP.PCM_ITS ---
Problem List (1) 36 weeks gestation of Status: Acute (2) Vacuum-assisted vaginal delivery Status: Acute (3) Pre-eclampsia, severe, delivered Status: Acute Vaginal Delivery Maternal Presentation: Medically Indicated Induction Method of Induction: Pitocin, Sánchez Bulb, Amniotomy Medical Reason for Induction: - - Severe preeclampsia Amniotic Membrane Rupture Type: Artificial Rupture of Membrane time: 04/30/20 0755h Amniotic Fluid Description: Clear Final CAMILLE: 05/27/20 Final CAMILLE Source: US <20 weeks Gestational age: 36 Weeks and 3 Days [place] doctor who attended delivery (if requested by OB): Mary Olsen Date of Procedure: 05/02/20 Pre-Operative Diagnosis: 36 3/7wga, preeclampsia with severe features, terminal bradycardia Post-Operative Diagnosis: same Surgery/ Procedure Performed: Vacuum Assisted Vaginal Delivery Anesthesiologist: Heath Hall Type of Anesthesia: Epidural Description of Procedure: Patient was FD/+4 and OA on my arrival and FHR was Cat II with baseline 115, moderate variability, + accelerations, + late deceleration. Patient pushed with waning maternal effort and terminal bradycardia occurred. I advised vacuum to assist delivery with review of vacuum related risks. The Kiwi cap was placed at the flexion point and 500mmHg applied at 0212h. A single pull was performed over approximately 2 minutes with continued maternal expulsive efforts and delivery of the head occurred. The Kiwi suction was released. A Nuchal cord x 1 was reduced and infant mouth and nares were bulb suctioned at the perineum. The shoulders delivered revealing a female . The infant was placed on the maternal abdomen and further attended by nursery personnel. Due to limited tone and respiratory effort, the cord was doubly clamped and cut at approximately 30 seconds of life and the infant was transferred to the [facility] for evaluation by the Elevator Attendant. The placenta delivered spontaneously and appeared intact on inspection. Cord blood and cord gas specimen were obtained. A first degree vaginal laceration and a left labial laceration were repaired with 3-0 Vicryl Rapide with good hemostasis. Sponge and needle counts were correct x 2. Will continue magnesium in period. Presentation: Vertex Placental Delivery Description: Spontaneous Placenta Disposition: [facility] Cord Vessel Description: 3 Vessels Nuchal Cord Compression: Without compression Cord Gases drawn per routine: ABG, VBG Cord Entanglement: None Drain: Sánchez to straight drain Estimated Blood Loss: 250 ml A gender: Female (1 minute): 6 (5 minute): 8 Episiotomy Description: None Laceration: Vaginal Extension/lac, 1st degree Medications given after delivery: IV Pitocin Complications: None
[2020-05-02] MEDS: Labetalol 200 MG Tablet PO ×2 (02:49→17:15)
[2020-05-02] MEDS: Lactated Ringers 1,000 ML 50 ML IV ×2 (02:54→20:34)
[2020-05-02] MEDS: Ibuprofen 600 MG Tablet PO ×2 (04:25→13:59)
--- NOTE | 2020-05-02 08:16 | DCINST_ITS ---
Discharge Diet: No Restrictions Discharge Activity: Return to Normal Activity, May Shower, May Take a Tub Bath May resume sexual activity in: 6 weeks Additional Instructions: If you experience any of the following, contact your healthcare provider. * Bleeding that soaks a pad every hour for 2 hours * Fever 100.4 or higher * Unrelieved incision or abdominal pain * Swelling, redness, discharge or bleeding from your incision or episiotomy site * Your incision begins to separate * Problems urinating (including inability to urinate or burning while urinating). * Visual changes * Severe headache * Flu-like symptoms * Pain or redness in one of both of your breasts * Pain, warmth, tenderness or swelling in your legs, especially the calf area * Frequent nausea and vomiting * Symptoms of depression or anxiety If you experience any of the following, call 911 or go to the nearest Emergency Room. * Chest pain * Problems breathing * Seizure activity * Partial or complete paralysis of a body part, slurred speech, weakness or drooping of the face, or a sudden inability to walk or hold your balance Allergies/Adverse Reactions: Allergies No Known Allergies Allergy (Verified 04/30/20 15:13) Medications to take at Discharge Vit No.130/Iron/Folic [ Tablet] 1 ea PO DAILY 10/09/19 Acetaminophen/Butalbital/Caffe [Fioricet] 1 tab PO Q4H PRN PRN 04/24/20 Ibuprofen [Motrin] 600 mg PO Q8H PRN PRN #30 tab 05/02/20 Blood Pressure Test Kit-Medium [Blood Pressure Monitor] 1 ea MC DAILY #1 kit 05/05/20 Labetalol [Trandate (Beta Shekhar)] 200 mg PO TID #90 tab 05/05/20 The following prescriptions were given: Blood Pressure Test Kit-Medium [Blood Pressure Monitor] 1 ea MC DAILY #1 kit Transmission Status: Pending to [id number] Ibuprofen [Motrin] 600 mg PO Q8H PRN PRN #30 tab PRN Reason: Pain Score 1-05/08 Transmission Status: Received by [id number] Labetalol [Trandate (Beta Shekhar)] 200 mg PO TID #90 tab Transmission Status: Received by [id number] Please Follow Up With: Sheree Dennis MD - See Dr. Natasha Pedersen or Dr. Dionisio Cummins When: 2-5 days Primary Care Physician: Care Physician,No Primary [Primary Care Provider] - Test Results: Test results from this visit will be discussed in further detail at your follow- up appointment, if applicable.
--- NOTE | 2020-05-02 08:58 | PCM.PN.OB ---
Patient Problems: Active and Suspected Problems 36 weeks gestation of (Acute) Vacuum-assisted vaginal delivery (Acute) Pre-eclampsia, severe, delivered (Acute) Subjective: Reports feeling heaviness all over her body and chest and fatigue. Denies breathing difficulty. Denies heavy lochia. No nausea or vomiting. Objective: AVSS - Physical Exam Vitals/I&O's: Vital Signs Temp Pulse Resp BP Pulse Ox 97.1 F L 81 16 126/82 H 99 05/02/20 07:50 05/02/20 08:33 05/02/20 08:30 05/02/20 08:33 05/02/20 08:33 Oxygen Delivery Method Room Air Weight: 87.317 kg Body Mass Index (BMI) 35.2 Intake and Output for Last 24 Hours 04/30/20 05/01/20 05/02/20 23:59 23:59 23:59 Intake Total 760.23 / 760.23 6263.90 / 6263.90 1904.37 / 1904.37 Output Total 450 / 450 1365 / 1365 895 / 895 Balance 310.23 / 310.23 4898.90 / 4898.90 1009.37 / 1009.37 General: Alert, Oriented x3, Cooperative, No apparent distress HEENT: Atraumatic, Normocephalic Lungs: Clear to auscultation, Normal air movement Cardiovascular: Regular rate, Regular Rhythm, Normal S1, Normal S2 Abdomen: Soft, Non Tender, Non-Distended, - - Fundus firm and nontender, lochia scant Extremities: No Calf Tenderness, - - +2 b/l LE pitting edema Neurological: Neuro grossly intact, - - no clonus, +2 b/l UE DTRs, trace b/l LE DTRs Psych/Mental Status: Normal Affect, Alert and oriented to time, place, person, mood and affect Current Medications Acetaminophen (Tylenol) 1,000 mg PO Q8H PRN PRN PRN Reason: Pain Score 1-3/10 Acetaminophen/Butalbital/Caffeine (Fioricet) 2 tablet PO Q8H PRN PRN PRN Reason: HEADACHE Last Admin: 05/01/20 02:45 Dose: 2 tablet Documented by: Bisacodyl (Dulcolax) 10 mg RECTAL UD PRN PRN Reason: If no BM Dibucaine (Dibucaine) 1 applic TOPICAL TID PRN PRN; Protocol PRN Reason: Discomfort Hydralazine HCl (Apresoline Iv) 10 mg IV X1 PRN PRN Reason: Elevated BP Hydrocortisone (Hytone) 1 applic TOPICAL TID PRN PRN; Protocol PRN Reason: Discomfort Calcium Gluconate 1 gm/ N/A 10 mls @ 2 mls/min IV X1 PRN PRN Reason: Magnesium Toxicity Magnesium Sulfate (20gm/500ml) 20 gm in 500 mls @ 50 mls/hr IV .Q10H [facility]; Protocol Last Infusion: 05/02/20 08:30 Dose: 2 gm/hr, 50 mls/hr Documented by: Lactated Ringer's () 1,000 mls @ 50 mls/hr IV .Q20H [facility] Last Admin: 05/02/20 02:54 Dose: 50 mls/hr Documented by: Ibuprofen (Motrin) 600 mg PO Q6H PRN PRN PRN Reason: Pain Score 1-3/10 Last Admin: 05/02/20 04:25 Dose: 600 mg Documented by: Labetalol HCl (Trandate) 80 mg IV X1 PRN PRN Reason: Elevated BP Labetalol HCl (Trandate) 200 mg PO BID [facility] Last Admin: 05/02/20 02:49 Dose: 200 mg Documented by: Methylergonovine Maleate (Methergine) 0.2 mg IM X1 PRN PRN Reason: Excess bleeding/uterine atony Midazolam HCl (Versed) 2 mg IV X1 PRN PRN Reason: Seizure Activity Ondansetron HCl (Zofran) 4 mg IV Q4H PRN PRN PRN Reason: NAUSEA Last Admin: 05/01/20 20:43 Dose: 4 mg Documented by: Multivit/Folic Acid/Iron (Prenatabs Fa) 1 tablet PO DAILY [facility] Senna/Docusate Sodium (Senokot-S, Sharon-Colace) 1 - 2 tablet PO DAILY PRN PRN PRN Reason: Constipation Simethicone (Mylicon) 80 mg PO PCHS PRN PRN Reason: Indigestion/Stomach pain Sodium Chloride () 5 - 15 ml IV UD PRN PRN Reason: SALINE FLUSH Medical Necessity - Tobacco Use Smoking Status: Former smoker Assessment/Plan All Active Problems 36 weeks gestation of (Acute) Vacuum-assisted vaginal delivery (Acute) Pre-eclampsia, severe, delivered (Acute) 19yo s/p VAVD earlier today on magnesium for preeclampsia with severe features. -No si/sx magnesium toxicity, will continue at 2g/hr -BPs increased and PO Labetalol resumed, 200mg bid with improvement of blood pressures -/pumping -Routine care
[2020-05-02] MEDS: Ondansetron 4 MG/2 ML Vial IV (09:00)
[2020-05-02] MEDS: 0.9% Saline Lock 10 ML Syringe IV (09:00)
[2020-05-02] MEDS: Prenatal Vits Tablet 1 TABLET PO (13:59)
[2020-05-02 17:36] LABS: Magnesium 9.5 mg/dL (1.6-2.6)
[2020-05-03] VITALS (18 sets, daily range): BP systolic 132–194; BP diastolic 56–92; PULSE 68–89; RESP 14–18; TEMP 36.3–37.2; O2SAT 97–98
[2020-05-03] MEDS: Ibuprofen 600 MG Tablet PO ×2 (04:00→10:15)
[2020-05-03] MEDS: Labetalol 200 MG Tablet PO ×2 (04:36→16:35)
--- NOTE | 2020-05-03 06:16 | PN.OBGYN_ITS ---
Patient Problems: Active and Suspected Problems 36 weeks gestation of (Acute) Vacuum-assisted vaginal delivery (Acute) Pre-eclampsia, severe, delivered (Acute) Subjective: Kia feels good this morning. She reports her legs are still a little weak, but she has been able to walk to and from the bathroom. The other heaviness in her body related to the magnesium has resolved. She voided without difficulty. Denies headache, vision changes or abdominal pain. She has been pumping. Reports lower extremity edema. Objective: AVSS - Physical Exam Vitals/I&O's: Vital Signs Temp Pulse Resp BP Pulse Ox 98.5 F 75 16 154/80 H 97 05/03/20 03:48 05/03/20 03:55 05/03/20 03:48 05/03/20 03:55 05/03/20 01:30 Oxygen Delivery Method Room Air Weight: 87.317 kg Body Mass Index (BMI) 35.2 Intake and Output for Last 24 Hours 05/01/20 05/02/20 05/03/20 23:59 23:59 23:59 Intake Total 6263.90 / 6263.90 3913.86 / 3913.86 459.17 / 459.17 Output Total 1365 / 1365 3835 / 3835 1550 / 1550 Balance 4898.90 / 4898.90 78.86 / 78.86 -1090.83 / -1090.83 General: Alert, Oriented x3, Cooperative, No apparent distress HEENT: Atraumatic, Normocephalic Lungs: Clear to auscultation, Normal air movement Cardiovascular: Regular rate, Regular Rhythm, Normal S1, Normal S2 Abdomen: Soft, Non Tender, Non-Distended, - - Fundus firm and nontender Extremities: No Calf Tenderness, - - +2 b/l LE edema, nonpitting edema also noted in her hands Neurological: Neuro grossly intact, - - +3 b/l UE DTRs and +3 b/l LE DTRs and brisk Psych/Mental Status: Normal Affect, Appropriate, Alert and oriented to time, place, person, mood and affect Laboratory Results 05/02/20 17:10: Magnesium 9.5 H* Current Medications Acetaminophen (Tylenol) 1,000 mg PO Q8H PRN PRN PRN Reason: Pain Score 1-3/10 Acetaminophen/Butalbital/Caffeine (Fioricet) 2 tablet PO Q8H PRN PRN PRN Reason: HEADACHE Last Admin: 05/01/20 02:45 Dose: 2 tablet Documented by: Bisacodyl (Dulcolax) 10 mg RECTAL UD PRN PRN Reason: If no BM Dibucaine (Dibucaine) 1 applic TOPICAL TID PRN PRN; Protocol PRN Reason: Discomfort Hydralazine HCl (Apresoline Iv) 10 mg IV X1 PRN PRN Reason: Elevated BP Hydrocortisone (Hytone) 1 applic TOPICAL TID PRN PRN; Protocol PRN Reason: Discomfort Calcium Gluconate 1 gm/ N/A 10 mls @ 2 mls/min IV X1 PRN PRN Reason: Magnesium Toxicity Lactated Ringer's () 1,000 mls @ 50 mls/hr IV .Q20H [facility] Last Infusion: 05/03/20 02:00 Dose: Infused Documented by: Ibuprofen (Motrin) 600 mg PO Q6H PRN PRN PRN Reason: Pain Score 1-3/10 Last Admin: 05/03/20 04:00 Dose: 600 mg Documented by: Labetalol HCl (Trandate) 80 mg IV X1 PRN PRN Reason: Elevated BP Labetalol HCl (Trandate) 200 mg PO 0500,1700 [facility] Last Admin: 05/03/20 04:36 Dose: 200 mg Documented by: Methylergonovine Maleate (Methergine) 0.2 mg IM X1 PRN PRN Reason: Excess bleeding/uterine atony Midazolam HCl (Versed) 2 mg IV X1 PRN PRN Reason: Seizure Activity Ondansetron HCl (Zofran) 4 mg IV Q4H PRN PRN PRN Reason: NAUSEA Last Admin: 05/02/20 09:00 Dose: 4 mg Documented by: Multivit/Folic Acid/Iron (Prenatabs Fa) 1 tablet PO DAILY [facility] Last Admin: 05/02/20 13:59 Dose: 1 tablet Documented by: Senna/Docusate Sodium (Senokot-S, Sharon-Colace) 1 - 2 tablet PO DAILY PRN PRN PRN Reason: Constipation Simethicone (Mylicon) 80 mg PO PCHS PRN PRN Reason: Indigestion/Stomach pain Sodium Chloride () 5 - 15 ml IV UD PRN PRN Reason: SALINE FLUSH Last Admin: 05/02/20 09:00 Dose: 10 ml Documented by: Medical Necessity - Tobacco Use Smoking Status: Former smoker Assessment/Plan All Active Problems 36 weeks gestation of (Acute) Vacuum-assisted vaginal delivery (Acute) Pre-eclampsia, severe, delivered (Acute) 19yo PPD#1 s/p VAVD, s/p 24h magnesium for preeclampsia with severe features -No sx worsening preeclampsia. Bps normal to mildly elevated, will observe following Labetalol dosing this morning if additional dose titration needed. -Edema - pt given reassurance -Pumping/ -Routine care
[2020-05-03] MEDS: Acetaminophen 500 MG Tablet 1000 MG PO (07:50)
[2020-05-03] MEDS: Senna/Docusate Sodium 1 Tablet PO (07:51)
[2020-05-03] MEDS: 0.9% Saline Lock 10 ML Syringe IV (10:13)
[2020-05-03] MEDS: Prenatal Vits Tablet 1 TABLET PO (10:13)
--- NOTE | 2020-05-03 16:15 | NURSING ---
pt denies headache, visual disturbances, epigastric pain, n/v. reflexes normal, no clonus. well recheck BP in 15 per protocol
[2020-05-04] VITALS (15 sets, daily range): BP systolic 130–184; BP diastolic 80–110; PULSE 72–86; RESP 16–18; TEMP 36.3–37.1; O2SAT 96–99
[2020-05-04] MEDS: Labetalol 200 MG Tablet PO ×3 (06:23→22:55)
[2020-05-04] MEDS: Acetaminophen 500 MG Tablet 1000 MG PO (06:23)
[2020-05-04] MEDS: Senna/Docusate Sodium 1 Tablet PO (07:14)
[2020-05-04] MEDS: Prenatal Vits Tablet 1 TABLET PO (10:04)
--- NOTE | 2020-05-04 13:48 | PN.OBGYN_ITS ---
Patient Problems: Active and Suspected Problems 36 weeks gestation of (Acute) Vacuum-assisted vaginal delivery (Acute) Pre-eclampsia, severe, delivered (Acute) Subjective: PPD#2 Objective: Lochia minimal. Denies FONTANA, vision changes, chest pain, dyspnea, nausea/emesis. - Physical Exam Vitals/I&O's: Vital Signs Temp Pulse Resp BP Pulse Ox 98.3 F 84 16 135/89 H 98 05/04/20 08:15 05/04/20 08:15 05/04/20 08:15 05/04/20 08:15 05/04/20 08:15 Oxygen Delivery Method Room Air Weight: 87.317 kg Body Mass Index (BMI) 35.2 Intake and Output for Last 24 Hours 05/02/20 05/03/20 05/04/20 23:59 23:59 23:59 Intake Total 3913.86 / 3913.86 459.17 / 459.17 Output Total 3835 / 3835 1800 / 1800 Balance 78.86 / 78.86 -1340.83 / -1340.83 General: Alert, Oriented x3, Cooperative, No apparent distress HEENT: Atraumatic, Normocephalic Lungs: Normal air movement Cardiovascular: Regular rate, Regular Rhythm Abdomen: Soft, Non Tender, Non-Distended - uterus 2 cm below umbilicus Extremities: No clubbing, No cyanosis, No edema, Capillary Refill Less than 3 Seconds Neurological: Cranial nerves II-XII grossly intact, Deep Tendon Reflexes 2+/4 and Symmetrical Psych/Mental Status: Normal Affect, Appropriate Microbiology Past 72 Hours 04/30/20 13:35 Genital vaginal Group B Streptococcus Culture - Final Group B Beta Streptococcus is not isolated. Current Medications Acetaminophen (Tylenol) 1,000 mg PO Q8H PRN PRN PRN Reason: Pain Score 1-3/10 Last Admin: 05/04/20 06:23 Dose: 1,000 mg Documented by: Acetaminophen/Butalbital/Caffeine (Fioricet) 2 tablet PO Q8H PRN PRN PRN Reason: HEADACHE Last Admin: 05/01/20 02:45 Dose: 2 tablet Documented by: Bisacodyl (Dulcolax) 10 mg RECTAL UD PRN PRN Reason: If no BM Dibucaine (Dibucaine) 1 applic TOPICAL TID PRN PRN; Protocol PRN Reason: Discomfort Hydralazine HCl (Apresoline Iv) 10 mg IV X1 PRN PRN Reason: Elevated BP Hydrocortisone (Hytone) 1 applic TOPICAL TID PRN PRN; Protocol PRN Reason: Discomfort Calcium Gluconate 1 gm/ N/A 10 mls @ 2 mls/min IV X1 PRN PRN Reason: Magnesium Toxicity Ibuprofen (Motrin) 600 mg PO Q6H PRN PRN PRN Reason: Pain Score 1-3/10 Last Admin: 05/03/20 10:15 Dose: 600 mg Documented by: Labetalol HCl (Trandate) 80 mg IV X1 PRN PRN Reason: Elevated BP Labetalol HCl (Trandate) 200 mg PO 0500,1700 [facility] OF [facility] Last Admin: 05/04/20 06:23 Dose: 200 mg Documented by: Methylergonovine Maleate (Methergine) 0.2 mg IM X1 PRN PRN Reason: Excess bleeding/uterine atony Midazolam HCl (Versed) 2 mg IV X1 PRN PRN Reason: Seizure Activity Ondansetron HCl (Zofran) 4 mg IV Q4H PRN PRN PRN Reason: NAUSEA Last Admin: 05/02/20 09:00 Dose: 4 mg Documented by: Multivit/Folic Acid/Iron (Prenatabs Fa) 1 tablet PO DAILY [facility] Last Admin: 05/04/20 10:04 Dose: 1 tablet Documented by: Senna/Docusate Sodium (Senokot-S, Sharon-Colace) 1 - 2 tablet PO DAILY PRN PRN PRN Reason: Constipation Last Admin: 05/04/20 07:14 Dose: 2 tablet Documented by: Simethicone (Mylicon) 80 mg PO PCHS PRN PRN Reason: Indigestion/Stomach pain Sodium Chloride () 5 - 15 ml IV UD PRN PRN Reason: SALINE FLUSH Last Admin: 05/03/20 10:13 Dose: 10 ml Documented by: Medical Necessity - Tobacco Use Smoking Status: Former smoker Assessment/Plan All Active Problems 36 weeks gestation of (Acute) Vacuum-assisted vaginal delivery (Acute) Pre-eclampsia, severe, delivered (Acute) 20 yo PPD#2 s/p VAVD. Complicated by severe pre-eclampsia on labetolol. Expect home tomorrow with f/u 1w for BP check.
[2020-05-04] MEDS: Ibuprofen 600 MG Tablet PO (15:31)
--- NOTE | 2020-05-04 17:12 | CASEMGMT ---
Social Work Labor and Delivery Unit Social work consult noted for maternal history of depression, anxiety and baby in the SCN. For continuity of care of families admitted to the SCN, this food writer also provides social work servcies to the SCN. Plan to meet with patient tomorrow, 05.05.2020 for assessment and support as indicated. -RONALD Siddiqui, LABORER [employer]
--- NOTE | 2020-05-04 18:59 | PCM.PN.BLA ---
Progress Note BPs reviewed. Will increase Labetalol to 200mg po tid. Plan for continued observation overnight given severe range BPs earlier in the day. STROKE Vital Signs/Narrative: Vital Signs Pulse Resp BP BP Pulse Ox 05/04/20 17:00 83 16 136/91 H 97 05/04/20 16:59 80 136/91 H 97 05/04/20 15:21 81 165/98 H 05/04/20 15:05 85 169/99 H 05/04/20 15:03 77 163/96 H 05/04/20 15:02 81 166/92 H 98
[2020-05-05] VITALS (16 sets, daily range): BP systolic 126–172; BP diastolic 69–102; PULSE 67–84; RESP 16; TEMP 36.3–36.6
[2020-05-05] MEDS: Labetalol 200 MG Tablet PO ×3 (06:57→22:38)
[2020-05-05] MEDS: Ibuprofen 600 MG Tablet PO (06:58)
--- NOTE | 2020-05-05 08:24 | PN.OBGYN_ITS ---
Patient Problems: Active and Suspected Problems 36 weeks gestation of (Acute) Vacuum-assisted vaginal delivery (Acute) Pre-eclampsia, severe, delivered (Acute) Subjective: Reports mild headache overnight, went away with Motrin. Denies headache this morning, vision changes or abdominal pain. She feels well. Leg swelling improved. OOB and ambulating without difficulty. Denies heavy lochia or significant pain. latched to breast yesterday, they are working on transferring and following 's bilirubin levels. Objective: Vital Signs Temp Pulse Resp BP BP BP Pulse Ox 05/05/20 07:45 75 130/76 H 05/05/20 07:03 67 158/99 H 05/05/20 06:59 158/99 H 05/05/20 01:04 97.4 F L 73 16 126/86 H 126/86 H 05/05/20 00:35 153/93 H 05/04/20 23:09 77 156/85 H 05/04/20 22:52 80 163/88 H 156/85 H 163/88 H 05/04/20 20:34 98.5 F 86 17 138/82 H 138/82 H 96 - Physical Exam Vitals/I&O's: Vital Signs Temp Pulse Resp BP Pulse Ox 97.4 F L 75 16 130/76 H 96 05/05/20 01:04 05/05/20 07:45 05/05/20 01:04 05/05/20 07:45 05/04/20 20:34 Oxygen Delivery Method Room Air Weight: 87.317 kg Body Mass Index (BMI) 35.2 Intake and Output for Last 24 Hours 05/03/20 05/04/20 05/05/20 23:59 23:59 23:59 Intake Total 459.17 / 459.17 Output Total 1800 / 1800 Balance -1340.83 / -1340.83 General: Alert, Oriented x3, Cooperative, No apparent distress HEENT: Atraumatic, Normocephalic Lungs: Clear to auscultation, Normal air movement Cardiovascular: Regular rate, Regular Rhythm, Normal S1, Normal S2 Abdomen: Soft, Non Tender, Non-Distended, - - Fundus firm and nontender Extremities: No Calf Tenderness, - - +1 b/l LE edema Neurological: Neuro grossly intact Psych/Mental Status: Normal Affect, Appropriate, Alert and oriented to time, place, person, mood and affect Microbiology Past 72 Hours 04/30/20 13:35 Genital vaginal Group B Streptococcus Culture - Final Group B Beta Streptococcus is not isolated. Current Medications Acetaminophen (Tylenol) 1,000 mg PO Q8H PRN PRN PRN Reason: Pain Score 1-3/10 Last Admin: 05/04/20 06:23 Dose: 1,000 mg Documented by: Acetaminophen/Butalbital/Caffeine (Fioricet) 2 tablet PO Q8H PRN PRN PRN Reason: HEADACHE Last Admin: 05/01/20 02:45 Dose: 2 tablet Documented by: Bisacodyl (Dulcolax) 10 mg RECTAL UD PRN PRN Reason: If no BM Dibucaine (Dibucaine) 1 applic TOPICAL TID PRN PRN; Protocol PRN Reason: Discomfort Hydralazine HCl (Apresoline Iv) 10 mg IV X1 PRN PRN Reason: Elevated BP Hydrocortisone (Hytone) 1 applic TOPICAL TID PRN PRN; Protocol PRN Reason: Discomfort Calcium Gluconate 1 gm/ N/A 10 mls @ 2 mls/min IV X1 PRN PRN Reason: Magnesium Toxicity Ibuprofen (Motrin) 600 mg PO Q6H PRN PRN PRN Reason: Pain Score 1-3/10 Last Admin: 05/05/20 06:58 Dose: 600 mg Documented by: Labetalol HCl (Trandate) 80 mg IV X1 PRN PRN Reason: Elevated BP Labetalol HCl (Trandate) 200 mg PO TID [facility] Last Admin: 05/05/20 06:57 Dose: 200 mg Documented by: Methylergonovine Maleate (Methergine) 0.2 mg IM X1 PRN PRN Reason: Excess bleeding/uterine atony Midazolam HCl (Versed) 2 mg IV X1 PRN PRN Reason: Seizure Activity Ondansetron HCl (Zofran) 4 mg IV Q4H PRN PRN PRN Reason: NAUSEA Last Admin: 05/02/20 09:00 Dose: 4 mg Documented by: Multivit/Folic Acid/Iron (Prenatabs Fa) 1 tablet PO DAILY [facility] Last Admin: 05/04/20 10:04 Dose: 1 tablet Documented by: Senna/Docusate Sodium (Senokot-S, Sharon-Colace) 1 - 2 tablet PO DAILY PRN PRN PRN Reason: Constipation Last Admin: 05/04/20 07:14 Dose: 2 tablet Documented by: Simethicone (Mylicon) 80 mg PO [facility] PRN PRN Reason: Indigestion/Stomach pain Sodium Chloride () 5 - 15 ml IV UD PRN PRN Reason: SALINE FLUSH Last Admin: 05/03/20 10:13 Dose: 10 ml Documented by: Medical Necessity - Tobacco Use Smoking Status: Former smoker Assessment/Plan All Active Problems 36 weeks gestation of (Acute) Vacuum-assisted vaginal delivery (Acute) Pre-eclampsia, severe, delivered (Acute) 19yo PPD#3 s/p VAVD, s/p 24h magnesium for preeclampsia with severe features -BPs improved with Labetalol tid, will continue to observe BPs this morning and if appropriate plan for d/c later today. -Si/sx preeclampsia reviewed with patient -Plan for home BP monitoring and outpatient f/u in 2-5 days -Routine care - -Rh positive
[2020-05-05] MEDS: Prenatal Vits Tablet 1 TABLET PO (13:33)
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
[2020-05-05] MEDS: Lisinopril 2.5 MG Tablet PO (18:21)
[2020-05-06] VITALS (24 sets, daily range): BP systolic 130–173; BP diastolic 84–106; PULSE 65–82; RESP 14–18; TEMP 36.4–37; O2SAT 99
[2020-05-06] MEDS: Labetalol 200 MG Tablet PO (06:25)
--- NOTE | 2020-05-06 08:40 | PCM.PN.OB ---
<Mimi Carmona - Last Filed: 05/06/20 08:40> Patient Problems: Active and Suspected Problems 36 weeks gestation of (Acute) Vacuum-assisted vaginal delivery (Acute) Pre-eclampsia, severe, delivered (Acute) Subjective: Reports feeling well and denies headache overnight. Has been ambulating to and from special care nursery. is going well with daughter latching and she is pumping for an extra supply. Producing is going well. Has been eating and drinking without issues. No complaints with bowel and bladder. Objective: Vital signs overnight still elevated with BP at 0101 159/106, at 0118 155/104 and 0133 141/84. Minimal bilateral lower extremity edema. DTR+++ brisk. - Physical Exam Vitals/I&O's: Vital Signs Temp Pulse Resp BP Pulse Ox 97.5 F L 66 16 141/84 H 99 05/06/20 01:05 05/06/20 01:33 05/06/20 01:05 05/06/20 01:33 05/06/20 01:05 Oxygen Delivery Method Room Air Weight: 87.317 kg Body Mass Index (BMI) 35.2 General: Alert, Oriented x3, Cooperative HEENT: Atraumatic, PERRLA, EOMI, Normocephalic Neck: Supple, No JVD, Negative Carotid Bruits Lungs: Clear to auscultation, Normal air movement Cardiovascular: Regular rate, No murmurs Abdomen: Bowel Sounds Present, Soft, Non Tender Extremities: Capillary Refill Less than 3 Seconds, Edema - bilateral lower extremity +1 Skin: No rashes, No breakdown Musculoskeletal: No Tenderness to Palpation of Joints or Extremities Neurological: Cranial nerves II-XII grossly intact, - - DTR 3+ Psych/Mental Status: Normal Affect, Appropriate Microbiology Past 72 Hours 04/30/20 13:35 Genital vaginal Group B Streptococcus Culture - Final Group B Beta Streptococcus is not isolated. Current Medications Acetaminophen (Tylenol) 1,000 mg PO Q8H PRN PRN PRN Reason: Pain Score 1-3/10 Last Admin: 05/04/20 06:23 Dose: 1,000 mg Documented by: Acetaminophen/Butalbital/Caffeine (Fioricet) 2 tablet PO Q8H PRN PRN PRN Reason: HEADACHE Last Admin: 05/01/20 02:45 Dose: 2 tablet Documented by: Bisacodyl (Dulcolax) 10 mg RECTAL UD PRN PRN Reason: If no BM Dibucaine (Dibucaine) 1 applic TOPICAL TID PRN PRN; Protocol PRN Reason: Discomfort Hydralazine HCl (Apresoline Iv) 10 mg IV X1 PRN PRN Reason: Elevated BP Hydrocortisone (Hytone) 1 applic TOPICAL TID PRN PRN; Protocol PRN Reason: Discomfort Calcium Gluconate 1 gm/ N/A 10 mls @ 2 mls/min IV X1 PRN PRN Reason: Magnesium Toxicity Ibuprofen (Motrin) 600 mg PO Q6H PRN PRN PRN Reason: Pain Score 1-3/10 Last Admin: 05/05/20 06:58 Dose: 600 mg Documented by: Labetalol HCl (Trandate) 80 mg IV X1 PRN PRN Reason: Elevated BP Labetalol HCl (Trandate) 200 mg PO TID [facility] Last Admin: 05/06/20 06:25 Dose: 200 mg Documented by: Lisinopril (Zestril) 2.5 mg PO DAILY [facility] Last Admin: 05/05/20 18:21 Dose: 2.5 mg Documented by: Methylergonovine Maleate (Methergine) 0.2 mg IM X1 PRN PRN Reason: Excess bleeding/uterine atony Midazolam HCl (Versed) 2 mg IV X1 PRN PRN Reason: Seizure Activity Ondansetron HCl (Zofran) 4 mg IV Q4H PRN PRN PRN Reason: NAUSEA Last Admin: 05/02/20 09:00 Dose: 4 mg Documented by: Multivit/Folic Acid/Iron (Prenatabs Fa) 1 tablet PO DAILY [facility] Last Admin: 05/05/20 13:33 Dose: 1 tablet Documented by: Senna/Docusate Sodium (Senokot-S, Sharon-Colace) 1 - 2 tablet PO DAILY PRN PRN PRN Reason: Constipation Last Admin: 05/04/20 07:14 Dose: 2 tablet Documented by: Simethicone (Mylicon) 80 mg PO [facility] PRN PRN Reason: Indigestion/Stomach pain Sodium Chloride () 5 - 15 ml IV UD PRN PRN Reason: SALINE FLUSH Last Admin: 05/03/20 10:13 Dose: 10 ml Documented by: Medical Necessity - Tobacco Use Smoking Status: Former smoker Assessment/Plan All Active Problems 36 weeks gestation of (Acute) Vacuum-assisted vaginal delivery (Acute) Pre-eclampsia, severe, delivered (Acute) 19yo PPD#4 s/p VAVD, s/p 48h magnesium for preeclampsia with severe features -BPs remain elevated with Labetalol tid and Lisinopril QD -In consultation with Dr. Dionisio Cummins will increase Labetalol dosing to 400mg TID and continue Lisinopril QD -Will continue to observe BPs this morning and if appropriate plan for d/c later today. -Si/sx preeclampsia reviewed with patient -Plan for home BP monitoring and outpatient f/u in 2-5 days -Routine care - -Rh positive <Regan Cummins - Last Filed: 05/06/20 17:24> - Physical Exam Vitals/I&O's: Vital Signs Temp Pulse Resp BP Pulse Ox 97.7 F L 78 15 139/91 H 99 05/06/20 13:50 05/06/20 16:54 05/06/20 13:50 05/06/20 16:54 05/06/20 01:05 Oxygen Delivery Method Room Air Weight: 192 lb 8 oz Body Mass Index (BMI) 35.2 Laboratory Results 05/06/20 14:50: WBC 11.8 H, RBC 3.02 L, Hgb 8.8 L, Hct 28.1 L, MCV 93.0, MCH 29.1, MCHC 31.3 L, RDW Std Deviation 47.6 H, RDW Coeff of Gladys 14.2, Plt Count 322, MPV 10.4 05/06/20 14:50: Sodium 139, Potassium 4.4, Chloride 104, Carbon Dioxide 30.0, Anion Gap 5, BUN 14, Creatinine 0.78, Estim Creat Clear Calc 89.48, Est GFR (MDRD) Af Amer 118, Est GFR (MDRD) Non-Af 98, BUN/Creatinine Ratio 17.9, Glucose 71 L, Calcium 9.1, Total Bilirubin 0.20, AST 28, ALT 30, Alkaline Phosphatase 128 H, Lactate Dehydrogenase 273 H, Total Protein 6.1 L, Albumin 2.2 L, Globulin 3.9, Albumin/Globulin Ratio 0.6 L Current Medications Acetaminophen (Tylenol) 1,000 mg PO Q8H PRN PRN PRN Reason: Pain Score 1-3/10 Last Admin: 05/04/20 06:23 Dose: 1,000 mg Documented by: Acetaminophen/Butalbital/Caffeine (Fioricet) 2 tablet PO Q8H PRN PRN PRN Reason: HEADACHE Last Admin: 05/01/20 02:45 Dose: 2 tablet Documented by: Bisacodyl (Dulcolax) 10 mg RECTAL UD PRN PRN Reason: If no BM Dibucaine (Dibucaine) 1 applic TOPICAL TID PRN PRN; Protocol PRN Reason: Discomfort Hydralazine HCl (Apresoline Iv) 10 mg IV X1 PRN PRN Reason: Elevated BP Hydrocortisone (Hytone) 1 applic TOPICAL TID PRN PRN; Protocol PRN Reason: Discomfort Calcium Gluconate 1 gm/ N/A 10 mls @ 2 mls/min IV X1 PRN PRN Reason: Magnesium Toxicity Ibuprofen (Motrin) 600 mg PO Q6H PRN PRN PRN Reason: Pain Score 1-3/10 Last Admin: 05/05/20 06:58 Dose: 600 mg Documented by: Labetalol HCl (Trandate) 80 mg IV X1 PRN PRN Reason: Elevated BP Labetalol HCl (Trandate) 600 mg PO TID [facility] Methylergonovine Maleate (Methergine) 0.2 mg IM X1 PRN PRN Reason: Excess bleeding/uterine atony Midazolam HCl (Versed) 2 mg IV X1 PRN PRN Reason: Seizure Activity Ondansetron HCl (Zofran) 4 mg IV Q4H PRN PRN PRN Reason: NAUSEA Last Admin: 05/02/20 09:00 Dose: 4 mg Documented by: Multivit/Folic Acid/Iron (Prenatabs Fa) 1 tablet PO DAILY [facility] Last Admin: 05/06/20 09:51 Dose: 1 tablet Documented by: Senna/Docusate Sodium (Senokot-S, Sharon-Colace) 1 - 2 tablet PO DAILY PRN PRN PRN Reason: Constipation Last Admin: 05/04/20 07:14 Dose: 2 tablet Documented by: Simethicone (Mylicon) 80 mg PO PCHS PRN PRN Reason: Indigestion/Stomach pain Sodium Chloride () 5 - 15 ml IV UD PRN PRN Reason: SALINE FLUSH Last Admin: 05/03/20 10:13 Dose: 10 ml Documented by: Patient seen and examined with severe preeclampsia status post magnesium. Patient remains asymptomatic denies headache, visual changes, chest pain, shortness of breath, right upper quadrant pain, nausea vomiting. Called by nursing with severe range blood pressure, medications changed to labetalol 600 mg 3 times daily. Lisinopril was discontinued. BP is now nonsevere. HELLP labs within normal limits. Discussed results with patient, to stay overnight for blood pressure evaluation and hope to discharge home in the morning if blood pressures nonsevere and patient asymptomatic. Patient states understanding all questions are answered.
[2020-05-06] MEDS: Labetalol 200 MG Tablet 400 MG PO (09:51)
[2020-05-06] MEDS: Prenatal Vits Tablet 1 TABLET PO (09:51)
[2020-05-06] MEDS: Lisinopril 2.5 MG Tablet PO (09:51)
[2020-05-06] MEDS: Labetalol 200 MG Tablet 600 MG PO ×2 (14:54→21:03)
[2020-05-06 15:05] LABS: Hematocrit 28.1 % (37-47); Hemoglobin 8.8 g/dL (12.0-15.0); Mean Corp Hgb Conc 31.3 g/dL (32-36); Mean Corpuscular Hgb 29.1 pg (27.0-32.0); Mean Platelet Vol. 10.4 fl (6.2-12.0); Platelet Count 322 K/mm3 (150-450); RBC Distribution Width CV 14.2 % (11.6-14.6); RBC Distribution Width SD 47.6 fl (35.1-43.9); Red Blood Count 3.02 M/mm3 (4.2-5.4); White Blood Count 11.8 K/mm3 (4.4-11.0)
[2020-05-06 15:48] LABS: ALB/GLOB Ratio 0.6 RATIO (0.9-2.4); AST(SGOT) 28 U/L (15-37); Alanine Aminotransfer ALT/SGPT 30 U/L (13-56); Albumin, Serum 2.2 g/dL (3.2-5.0); Alkaline Phosphatase 128 U/L (45-117); Anion Gap 5 (5-15); BUN 14 mg/dL (7-18); BUN/Creat Ratio 17.9 RATIO (10-20); Calcium,Total 9.1 mg/dL (8.5-10.1); Chloride 104 mmol/L (98-107); Creatinine, Serum 0.78 mg/dL (0.55-1.02); EST Glomerular Filtration Rate 98 mL/min (>60); Est Glom Filt Rate - Afr Amer 118 mL/min (>60); Estimated Creatinine Clearance 89.48 ml/min; Globulin 3.9 g/dL (2.2-4.2); Glucose 71 mg/dL (74-106); LDH 273 U/L (84-246); Potassium 4.4 mmol/L (3.5-5.1); Protein, Total 6.1 g/dL (6.4-8.2); Sodium Level 139 mmol/L (136-145)
[2020-05-07] VITALS (8 sets, daily range): BP systolic 133–161; BP diastolic 72–95; PULSE 70–80; RESP 14–16; TEMP 36.5–37.1
[2020-05-07] MEDS: Labetalol 200 MG Tablet 600 MG PO ×2 (05:39→14:19)
--- NOTE | 2020-05-07 08:41 | PCM.DC.SUM ---
Discharge Date and Diagnosis - Problem List Patient Problems: Active and Suspected Problems 36 weeks gestation of (Acute) Vacuum-assisted vaginal delivery (Acute) Pre-eclampsia, severe, delivered (Acute) Date of Admission: 04/30/20 Date of Discharge: 05/07/20 - Primary Discharge Diagnosis Acute Problems: Active Problems 36 weeks gestation of (Acute) Vacuum-assisted vaginal delivery (Acute) Pre-eclampsia, severe, delivered (Acute) Hospital Course and Treatment Summary of Care Provided: The patient is a 20 year old F [] Patient Problems: Active and Suspected Problems 36 weeks gestation of (Acute) Vacuum-assisted vaginal delivery (Acute) Pre-eclampsia, severe, delivered (Acute) Subjective: Denies headache. Feeling well. Daughter is latching and pumping is going great. Denies pain. Reports urinating well, having regular bowel movements and tolerating a regular diet. Ready to discharge. Objective: BP 130s-140s/70s-80s, Reflexes +2. Negative for clonus. - Physical Exam Vitals/I&O's: Vital Signs Temp Pulse Resp BP Pulse Ox 98.8 F 71 14 133/89 H 99 05/07/20 07:58 05/07/20 07:58 05/07/20 07:58 05/07/20 07:58 05/06/20 01:05 Oxygen Delivery Method Room Air Weight: 87.317 kg Body Mass Index (BMI) 35.2 General: Alert, Oriented x3, Cooperative HEENT: Atraumatic, PERRLA, EOMI, Normocephalic Neck: Supple, No JVD, Negative Carotid Bruits Lungs: Clear to auscultation, Normal air movement Cardiovascular: Regular rate, No murmurs Abdomen: Bowel Sounds Present, Soft, Non Tender Extremities: No edema, Capillary Refill Less than 3 Seconds Skin: No rashes, No breakdown Musculoskeletal: No Tenderness to Palpation of Joints or Extremities Neurological: Cranial nerves II-XII grossly intact Psych/Mental Status: Normal Affect, Appropriate Laboratory Results 05/06/20 14:50: WBC 11.8 H, RBC 3.02 L, Hgb 8.8 L, Hct 28.1 L, MCV 93.0, MCH 29.1, MCHC 31.3 L, RDW Std Deviation 47.6 H, RDW Coeff of Gladys 14.2, Plt Count 322, MPV 10.4 05/06/20 14:50: Sodium 139, Potassium 4.4, Chloride 104, Carbon Dioxide 30.0, Anion Gap 5, BUN 14, Creatinine 0.78, Estim Creat Clear Calc 89.48, Est GFR (MDRD) Af Amer 118, Est GFR (MDRD) Non-Af 98, BUN/Creatinine Ratio 17.9, Glucose 71 L, Calcium 9.1, Total Bilirubin 0.20, AST 28, ALT 30, Alkaline Phosphatase 128 H, Lactate Dehydrogenase 273 H, Total Protein 6.1 L, Albumin 2.2 L, Globulin 3.9, Albumin/Globulin Ratio 0.6 L Current Medications Acetaminophen (Tylenol) 1,000 mg PO Q8H PRN PRN PRN Reason: Pain Score 1-10/06 Last Admin: 05/04/20 06:23 Dose: 1,000 mg Documented by: Acetaminophen/Butalbital/Caffeine (Fioricet) 2 tablet PO Q8H PRN PRN PRN Reason: HEADACHE Last Admin: 05/01/20 02:45 Dose: 2 tablet Documented by: Bisacodyl (Dulcolax) 10 mg RECTAL UD PRN PRN Reason: If no BM Dibucaine (Dibucaine) 1 applic TOPICAL TID PRN PRN; Protocol PRN Reason: Discomfort Hydralazine HCl (Apresoline Iv) 10 mg IV X1 PRN PRN Reason: Elevated BP Hydrocortisone (Hytone) 1 applic TOPICAL TID PRN PRN; Protocol PRN Reason: Discomfort Calcium Gluconate 1 gm/ N/A 10 mls @ 2 mls/min IV X1 PRN PRN Reason: Magnesium Toxicity Ibuprofen (Motrin) 600 mg PO Q6H PRN PRN PRN Reason: Pain Score 1-310 Last Admin: 05/05/20 06:58 Dose: 600 mg Documented by: Labetalol HCl (Trandate) 80 mg IV X1 PRN PRN Reason: Elevated BP Labetalol HCl (Trandate) 600 mg PO TID [facility] Last Admin: 05/07/20 05:39 Dose: 600 mg Documented by: Methylergonovine Maleate (Methergine) 0.2 mg IM X1 PRN PRN Reason: Excess bleeding/uterine atony Midazolam HCl (Versed) 2 mg IV X1 PRN PRN Reason: Seizure Activity Ondansetron HCl (Zofran) 4 mg IV Q4H PRN PRN PRN Reason: NAUSEA Last Admin: 05/02/20 09:00 Dose: 4 mg Documented by: Multivit/Folic Acid/Iron (Prenatabs Fa) 1 tablet PO DAILY [facility] Last Admin: 05/06/20 09:51 Dose: 1 tablet Documented by: Senna/Docusate Sodium (Senokot-S, Sharon-Colace) 1 - 2 tablet PO DAILY PRN PRN PRN Reason: Constipation Last Admin: 05/04/20 07:14 Dose: 2 tablet Documented by: Simethicone (Mylicon) 80 mg PO [facility] PRN PRN Reason: Indigestion/Stomach pain Sodium Chloride () 5 - 15 ml IV UD PRN PRN Reason: SALINE FLUSH Last Admin: 05/03/20 10:13 Dose: 10 ml Documented by: Discharge Diet: No Restrictions Discharge Activity: Return to Normal Activity, May Shower, May Take a Tub Bath May resume sexual activity in: 6 weeks Home Medications: Medications to take at Discharge Vit No.130/Iron/Folic [ Tablet] 1 ea PO DAILY 10/09/19 Acetaminophen/Butalbital/Caffe [Fioricet] 1 tab PO Q4H PRN PRN 04/24/20 Ibuprofen [Motrin] 600 mg PO Q8H PRN PRN #30 tab 05/02/20 Blood Pressure Test Kit-Medium [Blood Pressure Monitor] 1 ea MC DAILY #1 kit 05/05/20 Labetalol [Trandate (Beta Shekhar)] 200 mg PO TID #90 tab 05/05/20 Labetalol [Trandate (Beta Shekhar)] 600 mg PO TID #90 tab 05/07/20 Bad tablePrimary Care Physician: Care Physician,No Primary [Primary Care Provider] - Please Follow Up With: Sheree Dennis MD - See Dr. Natasha Pedersen or Dr. Dionisio Cummins When: Sunday05-10-20, call for appointment Disposition: Home Minutes spent on discharge:: 20 Patient Condition:: Good Medical Necessity - Tobacco Use Smoking Status: Former smoker Meaningful Use Info Meaningful Use Diagnoses (Choose all that apply): None applicable
[2020-05-07] MEDS: Prenatal Vits Tablet 1 TABLET PO (10:21)
--- NOTE | 2020-05-07 15:26 | NURSING ---
Addendum entered by Amelie Sheikh 05/07/20 15:28: pt states she has an appointment at [facility] on 05/10/20 at 2:30 p.m. Original Note: 1410 (Late Entry) discharge instructions reviewed with pt. pt notified to abstain from sexual intercourse for 4-6 weeks. s/s of pre-eclampsia, infection and post hemorrhage reviewed with pt. pt notified of when to notify physician. pt verbalizes understanding
--- NOTE | 2020-05-07 17:11 | CASEMGMT ---
Social Work Note Labor and Delivery ? Date of Intervention:?05.07.2020 ? Reason for follow-up:Communication with mother of baby (MOB) and provision of resources for home going. ? Summary of Family/Staff/Agency Contact:??Met with MOB at baby's bedside in the [facility]. ?MOB reports to be looking to going home with baby today. ?Provided MOB with information on mood and anxiety disorders, as well as resource packet for [facility]. ?MOB accepted packet and denies any needs for home going. ? ? Assessment:?MOB baby when social work visited this date. ?MOB with a bright affect, attentive to baby as evidenced by looking at baby intermittently and smiling at baby. ??MOB denies any needs for home going and reports to feel to have adequate support. ??MOB reports intent to adhere to aftercare followup for both self and for baby. ? Plan:?No further intervention indicated. ? -RONALD Siddiqui, EDUCATION COURSES SALES REPRESENTATIVE ?
== END 2020-05-07 16:40 | disposition home or self-care (01) | DRG 560 ==
LOC: WPOUT 17:29 → WP 17:29
PROVIDERS: Obstetrics & Gynecology; Admitting Provider Obstetrics & Gynecology; Referring Provider Student in an Organized Health Care Education/Training Program; Visit Provider Obstetrics & Gynecology
DX: O76 Abnormality in fetal heart rate and rhythm complicating labor and delivery (principal); Z37.0 Single live birth; O14.14 Severe pre-eclampsia complicating childbirth; Z3A.36 36 weeks gestation of pregnancy; O69.81X0 Labor and delivery complicated by cord around neck, without compression, not applicable or unspecified; O70.0 First degree perineal laceration during delivery; Z87.891 Personal history of nicotine dependence
CPT/HCPCS: 59025; 59050; 80053; 82565; 83615; 83735; 84450; 84460; 84550; 85027; 85610; 85730; 86850; 86900; 86901; 87081; 99218; J7120; A4216; G0378; J0702; J2405

== ENCOUNTER 2023-04-26 07:01 | Emergency (ER) | payer BC, MEDICAID, SELFPAY ==
[2023-04-26 07:03] VITALS: BP 121/95; PULSE 89; RESP 15; TEMP 36.2; O2SAT 100; BMI 30.9
[2023-04-26 07:10] VITALS: O2SAT 99
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
[2023-04-26 08:08] VITALS: BP 118/78
--- NOTE | 2023-04-26 08:09 | NURSING ---
NO OLD EKG
[2023-04-26] MEDS: Ondansetron 4 MG/2 ML Vial IV ×2 (08:11→10:06)
[2023-04-26] MEDS: Morphine 4 MG/ML Syringe 6 MG IV (08:12)
[2023-04-26 08:18] LABS: Absolute Lymphocyte Count 1.39 X10^3/uL (0.83-4.51); Absolute Neutrophil Count 14.8 X10^3/uL (2.0-7.7); Basophil# 0.04 X10^3/uL; Basophil% 0.2 % (0-1); Eosinophil# 0.08 X10^3/uL; Eosinophils% 0.5 % (0-5); Hematocrit 37.2 % (37-47); Lymphocyte # 1.39 X10^3/ul (0.83-4.51); Lymphocyte % 7.9 % (19-41); Mean Corp Hgb Conc 32.3 g/dL (32-36); Mean Corpuscular Hgb 29.5 pg (27.0-32.0); Mean Corpuscular Volume 91.4 fL (81-99); Mean Platelet Vol. 10.2 fl (6.2-12.0); Monocyte# 1.02 X10^3/uL; Monocyte% 5.8 % (0-10); NRBC Flagged by Analyzer 0 % (0-5); Neutrophil % 84.5 % (47-70); Platelet Count 377 K/mm3 (150-450); RBC Distribution Width CV 13.1 % (11.6-14.6); RBC Distribution Width SD 43.9 fl (35.1-43.9); Red Blood Count 4.07 M/mm3 (4.2-5.4); White Blood Count 17.5 K/mm3 (4.4-11.0)
[2023-04-26 08:29] LABS: Internal QC Validated? YES +Cl - CLEAR BKGD; Pregnancy, Serum, hCG Quali. NEGATIVE Negative
[2023-04-26 08:37] LABS: AST(SGOT) 274 U/L (15-37); Alanine Aminotransfer ALT/SGPT 172 U/L (13-56); Albumin, Serum 3.3 g/dL (3.2-5.0); Alkaline Phosphatase 64 U/L (45-117); Anion Gap 4 (5-15); BUN 11 mg/dL (7-18); BUN/Creat Ratio 12.6 RATIO (10-20); Bilirubin, Direct 0.12 mg/dL (0.00-0.30); Calcium,Total 8.5 mg/dL (8.5-10.1); Chloride 110 mmol/L (98-107); Creatinine, Serum 0.87 mg/dL (0.55-1.02); EST Glomerular Filtration Rate 84 mL/min (>60); Est Glom Filt Rate - Afr Amer 102 mL/min (>60); Estimated Creatinine Clearance 78.86 ml/min; Globulin 3.8 g/dL (2.2-4.2); Glucose 128 mg/dL (74-106); Potassium 3.6 mmol/L (3.5-5.1); Protein, Total 7.1 g/dL (6.4-8.2); Sodium Level 139 mmol/L (136-145)
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
[2023-04-26 09:08] VITALS: RESP 20
[2023-04-26 09:08] LABS: Alcohol, Blood (Medical)-Serum < 3.0 mg/dL
[2023-04-26] MEDS: HYDROmorphone 0.5 MG/0.5 ML SYRINGE IV (09:31)
--- NOTE | 2023-04-26 09:34 | NURSING ---
CALLED ALIE, ETA 20 MINUTES
[2023-04-26] MEDS: 0.9% Normal Saline (1000mL) 1,000 ML 100 ML IV (10:06)
== END 2023-04-26 10:20 | disposition short-term general hospital (02) ==
PROVIDERS: Emergency Provider Emergency Medicine; Visit Provider Emergency Medicine
DX: S22.42XA Multiple fractures of ribs, left side, initial encounter for closed fracture (principal); S27.0XXA Traumatic pneumothorax, initial encounter; V49.40XA Driver injured in collision with unspecified motor vehicles in traffic accident, initial encounter
CPT/HCPCS: 70450; 71260; 72125; 74177; 80048; 80076; 82077; 84703; 85025; 93005; 96374; 96375; 96376; 99285; J7030; Q9967; A4216; J2405

== ENCOUNTER 2023-08-28 15:57 | Emergency (ER) | payer BC, MEDICAID, SELFPAY ==
[2023-08-28 15:57] VITALS: BP 115/92; PULSE 127; RESP 16; TEMP 37.7; O2SAT 98; BMI 25.6
[2023-08-28 16:12] LABS: Bacteria 0 SEEN /hpf (None Seen); Mucous, Urine 0 SEEN /hpf (<or=2+)
[2023-08-28 16:18] LABS: Color, Urine Yellow (Yellow); Glucose, Dipstick Normal (Normal); Ketone-Dipstick Negative (Negative); Leukocyte Esterase-Dipstick 500 /ul (Negative); Nitrite-Dipstick Positive (Negative); Occult Blood-Urine 150 /ul (Negative); Protein-Dipstick 500 mg/dl (Negative); Specific Gravity, Urine 1.015 (1.002-1.030); Urine Bilirubin Dipstick Negative (Negative); Urine Clarity Cloudy (Clear); Urine Urobilinogen Normal (Normal)
[2023-08-28 16:33] LABS: Red Blood Cells-Urine 0-5 SEEN /hpf (0-5); Squamous Epithelial Cells - UA 5-10 SEEN /hpf (5-10); White Blood Cells >100 SEEN /hpf (0-5)
[2023-08-28 18:42] LABS: Absolute Lymphocyte Count 1.12 X10^3/uL (0.83-4.51); Absolute Neutrophil Count 16.9 X10^3/uL (2.0-7.7); Basophil% 0.5 % (0-1); Eosinophil# 0.02 X10^3/uL; Eosinophils% 0.1 % (0-5); Hematocrit 41.5 % (37-47); Lymphocyte # 1.12 X10^3/ul (0.83-4.51); Lymphocyte % 5.5 % (19-41); Mean Corp Hgb Conc 33.7 g/dL (32-36); Mean Corpuscular Hgb 29.6 pg (27.0-32.0); Mean Corpuscular Volume 87.7 fL (81-99); Mean Platelet Vol. 10.4 fl (6.2-12.0); Monocyte# 2.04 X10^3/uL; Monocyte% 10.1 % (0-10); NRBC Flagged by Analyzer 0 % (0-5); Neutrophil # 16.91 X10^3/uL (2.7-7.7); Neutrophil % 83.3 % (47-70); POSITIVE DIFFERENTIAL YES; Platelet Count 323 K/mm3 (150-450); RBC Distribution Width SD 44.9 fl (35.1-43.9); Red Blood Count 4.73 M/mm3 (4.2-5.4); White Blood Count 20.3 K/mm3 (4.4-11.0)
[2023-08-28 18:46] LABS: Internal QC Validated? YES +Cl - CLEAR BKGD; Pregnancy, Serum, hCG Quali. NEGATIVE Negative
[2023-08-28 18:51] LABS: Differential Indicated SCAN CRITERIA MET
[2023-08-28 18:57] LABS: ALB/GLOB Ratio 0.7 RATIO (0.9-2.4); AST(SGOT) 13 U/L (15-37); Alanine Aminotransfer ALT/SGPT 18 U/L (13-56); Albumin, Serum 3.5 g/dL (3.2-5.0); Alkaline Phosphatase 100 U/L (45-117); Anion Gap 11 (5-15); BUN 8 mg/dL (7-18); BUN/Creat Ratio 9.2 RATIO (10-20); Calcium,Total 9.8 mg/dL (8.5-10.1); Chloride 101 mmol/L (98-107); Creatinine, Serum 0.87 mg/dL (0.55-1.02); EST Glomerular Filtration Rate 84 mL/min (>60); Est Glom Filt Rate - Afr Amer 101 mL/min (>60); Estimated Creatinine Clearance 86.62 ml/min; Globulin 5.3 g/dL (2.2-4.2); Glucose 103 mg/dL (74-106); Protein, Total 8.8 g/dL (6.4-8.2); Sodium Level 135 mmol/L (136-145)
[2023-08-28 18:59] LABS: Anisocytosis RARE; Platelet Estimate ADEQUATE (ADEQ); Red Cell Morphology N CHROM NORMAL (NORM C&C)
[2023-08-28 19:01] LABS: Ovalocyte RARE
--- NOTE | 2023-08-28 19:05 | ED.VIS.GI ---
HPI HPI - GI History of Present Illness Chief Complaint: Abd Pain Informant: patient Abdominal Pain/Flank Pain Onset: Days (3) Context: Sudden Onset Timing: Continuous Quality: Cramping and Sharp Location: RLQ and LLQ Worsened by: - (Coughing, deep breathing) Relieved by: Nothing Nausea/Vomiting/Emesis GI Symptom: Positive for Nausea and Vomiting Quality: Positive for Nonbilious; Negative for Blood streaks, Coffee ground or Hematemesis Diarrhea/Melena/Hematochezia GI Symptom: Positive for Diarrhea; Negative for Melena or Hematochezia Associated Symptoms Associated Symptoms: Positive for Dysuria and Frequency; Negative for Hematuria Narrative Narrative: Patient presents with abdominal pain that has been getting progressively worse over the past 3 days. Patient states it began rather suddenly. Patient states it is getting progressively worse. Patient describes it as cramping. Patient states it is mainly over her lower abdomen. Patient states it is worse with coughing and deep breathing. Patient states nothing seems to help with it. Patient admits to some nausea, vomiting, and diarrhea. Patient denies any hematemesis or coffee-ground emesis. Patient denies any melena or hematochezia. Patient admits to some urinary frequency and dysuria. Patient also admits to some low back pain. Patient states her last menstrual period was approximately 1 to 2 weeks ago. PFSH PFSH Medical History no medical history no medical history Home Medications ciprofloxacin HCl 500 mg tablet 500 mg PO BID #14 TABLETS 08/28/23 [Rx Last Taken Unknown] hydrocodone-acetaminophen 5-325mg 5mg-325mg 1 tab PO Q6H PRN PRN Pain 3 days #10 TABLETS 08/28/23 [Rx Last Taken Unknown] Allergy/AdvReac Type Severity Reaction Status Date / Time No Known Allergies Allergy Verified 08/28/23 15:58 Surgical History no surgical history no surgical history Social History Smoking Status: Never smoker ROS ROS ED Constitutional Constitutional ED: Denies chills or fever(s) Eyes Eyes: Denies blurry vision or change in vision ENT ENT ED: Denies rhinorrhea or sore throat Cardiovascular Cardiovascular: Denies chest pain or palpitations Respiratory/Chest Respiratory/Chest: Denies cough or dyspnea Gastrointestinal Gastrointestinal: Reports abdominal pain, diarrhea, nausea and vomiting; Denies melena Genitourinary Genitourinary ED: Reports dysuria, LMP (females 10-50) Details: Comment: (Approximately 1 to 2 weeks ago) and urinary frequency; Denies hematuria Musculoskeletal Musculoskeletal: Reports back pain; Denies neck pain Integumentary Denies abscess or rash Neurologic Neurologic: Denies headache(s) or weakness Allergic/Immunologic Allergic/Immunologic ED: Denies mouth swelling or urticaria EXAM Physical Exam Const Vital Signs: 08/28/23 15:57 08/28/23 19:13 08/28/23 20:38 Temperature 99.9 F H Temperature Source Oral Pulse Rate 127 H 114 H 78 Respiratory Rate 16 12 14 Blood Pressure 115/92 H 123/88 H 113/99 H Blood Pressure Mean 99 99 103 Pulse Ox 98 99 98 Oxygen Delivery Method Room Air Room Air Room Air 08/28/23 22:02 Temperature Temperature Source Pulse Rate 65 Respiratory Rate 12 Blood Pressure 110/80 Blood Pressure Mean 90 Pulse Ox 99 Oxygen Delivery Method Room Air Positive well nourished and well developed General Appearance ED: well developed and NAD HEENT Reports moist mucous membranes Neck supple and no JVD Resp normal respiratory effort and clear to auscultation bilaterally Cardio regular rhythm Rate: tachycardic GI non-distended Palpation: soft and tender LLQ, RLQ and suprapubic; Negative for guarding or rebound tenderness present Extremity full ROM Neuro CN's II-XII intact bilaterally, moves all extremities and no sensory deficits noted Sensorium / Orientation: alert Motor Exam: strength 5/5 throughout MDM MDM MDM Narrative Medical decision making narrative: Differential diagnosis includes urinary tract infection, ureteral calculus, pyelonephritis, ectopic , ovarian cyst, gastroenteritis, diverticulitis, colitis, and appendicitis. CBC will be obtained to assess for leukocytosis and anemia. Comprehensive metabolic profile will be obtained to assess for hepatic function, renal function, and electrolyte abnormality. Serum hCG will be obtained to assess for . Urinalysis will be obtained to assess for urinary tract infection. CT scan of the abdomen and pelvis will be obtained to assess for bowel obstruction, perforation, diverticulitis, pyelonephritis, and appendicitis. Lab Data Attestation: I reviewed the patient's lab results. Lab results narrative: CBC was reviewed. There is a leukocytosis of 20.3. The remainder is within normal limits. Comprehensive metabolic profile was reviewed. Potassium was slightly low at 3.0. The remainder was within normal limits. Urinalysis was reviewed. Occult blood was 150 with 0-5 red blood cells. Leukocyte Estrace was 500 with greater than 100 white blood cells. There were positive nitrites. There was no bacteria seen. Labs: Laboratory Results - last 24 hr 08/28/23 08/28/23 14:00 18:30 WBC 20.3 H RBC 4.73 Hgb 14.0 Hct 41.5 MCV 87.7 MCH 29.6 MCHC 33.7 RDW Std Deviation 44.9 H RDW Coeff of Gladys 14.0 Plt Count 323 MPV 10.4 Immature Gran % (Auto) 0.500 Neut % (Auto) 83.3 H Lymph % (Auto) 5.5 L [place] % (Auto) 10.1 H Eos % (Auto) 0.1 Baso % (Auto) 0.5 Absolute Neuts (auto) 16.9 H Absolute Lymphs (auto) 1.12 Nucleated RBC % 0 Differential Comment SEE COMMENT Diff Path Review May foll Platelet Estimate ADEQUATE RBC Morphology N CHROM Anisocytosis RARE Ovalocytes RARE Sodium 135 L Potassium 3.0 L Chloride 101 Carbon Dioxide 23.0 Anion Gap 11 BUN 8 Creatinine 0.87 Estim Creat Clear Calc 86.62 Est GFR (MDRD) Af Amer 101 Est GFR (MDRD) Non-Af 84 BUN/Creatinine Ratio 9.2 L Glucose 103 Calcium 9.8 Total Bilirubin 0.70 AST 13 L ALT 18 Alkaline Phosphatase 100 Total Protein 8.8 H Albumin 3.5 Globulin 5.3 H Albumin/Globulin Ratio 0.7 L Serum , Qual NEGATIVE Urine Color Yellow Urine Clarity Cloudy Urine pH 6.0 Ur Specific [place] 1.015 Urine Protein 500 H Urine Glucose (UA) Normal Urine Ketones Negative Urine Occult Blood 150 H Urine Nitrite Positive H Urine Bilirubin Negative Urine Urobilinogen Normal Ur Leukocyte Esterase 500 H Urine RBC 0-5 SEEN Urine WBC >100 SEEN Ur Squamous Epith Cells 5-10 SEEN Urine Bacteria 0 SEEN Urine Mucus 0 SEEN Radiography Diagnostic Testing: Clinical Impression(s) from Imaging Studies Abdomen/Pelvis CT 08/28/23 19:40 IMPRESSION: Suspect bilateral pyelonephritis. Electronically Signed: Dio Weeks MD at 21:51 EST , CT scan of the abdomen pelvis was obtained. There is heterogeneous enhancement of the renal parenchyma bilaterally with some subtle stranding of the perinephric fat. There is no free air or free fluid. There is no ureteral calculus noted. This was interpreted by the radiologist and was also dependently reviewed by myself. Additional Tests and Interventions Additional Tests or Interventions: Blood cultures were obtained. Urine cultures were obtained. Treatment and Re-Evaluation :: Patient was given IV fluids, morphine, and Zofran. Patient was advised of her findings. Patient was given a dose of Rocephin here. Patient will feel better if she was able to go home. Patient was given prescription for Cipro. Patient was instructed to drink plenty of fluids. Patient was given a prescription for a short course of [place]. Patient was instructed to follow-up with her primary care physician in 5 to 7 days. Patient was instructed return if worse in any way. Patient understood and was agreeable with the plan. All questions were answered. Discharge Plan Triage Chief Complaint: Abd Pain ED Provider: Kg Titus Dx/Rx/DC Orders Clinical Impression: Pyelonephritis of right kidney, Pyelonephritis of left kidney Instructions: ED Pyelonephritis, Female (Adult) Prescriptions: New hydrocodone-acetaminophen [hydrocodone-acetaminophen] 5-325 mg tablet 1 tab PO Q6H PRN PRN (Reason: Pain) 3 Days Qty: 10 0RF ciprofloxacin HCl [ciprofloxacin HCl] 500 mg tablet 500 mg PO BID Qty: 14 0RF Primary Care Provider: Care Physician,No Primary Referrals: Annalee Wade MD [Med Staff - Active Staff] - 3-5 Days Care Physician,No Primary [Primary Care Provider] - Disposition Disposition: Home, Self Care
[2023-08-28 19:13] VITALS: BP 123/88; PULSE 114; RESP 12; O2SAT 99
--- NOTE | 2023-08-28 19:40 | CT_ITS ---
STUDY: CT ABDOMEN AND PELVIS WITH CONTRAST REASON FOR EXAM: Female, 23 years old. Abdominal pain -- IV PO Contrast RADIATION DOSAGE (If Supplied By Facility): CTDIvol = ( 15.83 ) mGy, DLP = ( 434.63 ) mGycm TECHNIQUE: Transaxial images were obtained from the dome of the diaphragm to the symphysis pubis with oral contrast. Oral and amp; IV Gastrografin and amp; 100mL Isovue-370 was administered. Sagittal and coronal images were reconstructed. Individualized dose optimization techniques were used for this CT. COMPARISON: 04/26/2023 FINDINGS: The visualized lung bases are unremarkable. The visualized portions of the heart are within normal limits. Normal liver. Normal gallbladder and extrahepatic biliary system. Normal spleen. Normal pancreas. Normal bilateral adrenal glands. There is subtle heterogeneous enhancement of the renal parenchyma bilaterally with some subtle stranding of the perinephric fat suggestive of pyelonephritis. No definite renal or ureteral stone. Normal visualized stomach. Normal small intestine. Normal colon. There is non-visualization of the appendix. Normal abdominal aorta. Normal inferior vena cava. Normal retroperitoneum. Normal urinary bladder. Normal abdominal wall. Normal osseous structures. CT/Abdomen/Pelvis WITH Contrast IMPRESSION: Suspect bilateral pyelonephritis. Electronically Signed: Dio Weeks MD at 21:51 EST ,
--- OUTSIDE RECORDS SUMMARY | 2023-08-28 19:53 | XMS RPT_ITS | CCD ---
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 Normocephalic and atraumatic. Eyes: Pupils: Pupils are equal, round, and reactive to light. Neck: Musculoskeletal: Normal range of motion and neck supple. Cardiovascular: Rate and Rhythm: Normal rate. Pulmonary: Effort: Pulmonary effort is normal. Breath sounds: Normal breath sounds. Abdominal: General: There is no distension. Palpations: Abdomen is soft. Tenderness: There is no abdominal tenderness. Musculoskeletal: Normal range of motion. Skin: General: Skin is warm and dry. Capillary Refill: Capillary refill takes less than 2 seconds. Neurological: Mental Status: She is alert and oriented to person, place, and time. GCS: GCS eye subscore is 4. GCS verbal subscore is 5. GCS motor subscore is 6. Cranial Nerves: Cranial nerves are intact. Sensory: Sensation is intact. Motor: Motor function is intact. Coordination: Coordination is intact. Gait: Gait is intact. Laboratory & Radiographic Imaging (if done): Results for orders placed or performed during the hospital encounter of 10/02/19 POC Urinalysis Dipstick, Auto Result Value Ref Range Spec Grav, UA >=1.030 (H) 1.005 - 1.025 pH, UA 6.0 5.0 - 7.0 Protein, UA Trace (A) Negative mg/dL Glucose, UA Negative Negative mg/dL Ketones, UA 80 (A) Negative mg/dL Bilirubin, UA Small (A) Negative Urobilinogen, UA 0.2 <2.0 mg/dL Blood, UA Negative Negative Nitrite, UA Negative Negative Leukocyte Esterase, UA Negative Negative POC Venous Blood Gases with Full Panel Result Value Ref Range pH, Venous 7.35 7.32 - 7.42 pCO2, Yahir 45.4 41.0 - 51.0 mm Hg pO2, Yahir 29 25 - 40 mm Hg Base Excess, Yahir -0.9 -2.0 - 2.0 HCO3, Yahir 25.1 24.0 - 28.0 mmol/L O2 Sat, Yahir 50.8 % Hemoglobin, Calculated 15.7 12.0 - 16.0 g/dL Hematocrit 46 36 - 46 % Glucose 98 65 - 99 mg/dL BUN 12 8 - 25 mg/dL Creatinine 0.56 0.40 - 1.10 mg/dL Sodium 137 135 - 145 mmol/L Potassium 3.6 3.5 - 5.1 mmol/L Chloride 101 98 - 108 mmol/L Lactate 1.5 0.6 - 2.0 mmol/L Ionized Calcium 4.7 4.5 - 5.3 mg/dL GFR 134 >=60 mL/min/1.73 m2 No orders to display Procedures MDM Patient presents with nausea/vomiting in first trimester prengancy. No abdominal pain or tendernes. Headache simialr to prior migraines. Labs reviewed: VBG unremarkable, UA with ketones, no pyuria. Given IVF, reglan, tolerated Po well. Headache improved as well. Discussed anticipatory management, return precautions, and follow up. The patient has been informed that they may have pre-hypertension or hypertension based on a blood pressure reading in the Emergency Department. I recommend that the patient call the primary care provider listed on their discharge instructions or a physician of their choice as soon as possible to arrange follow-up in the next 4 weeks for further evaluation of possible pre-hypertension or hypertension. . Clinical Impression: 1. Nausea and vomiting in ED Disposition ED Disposition Condition Comment Discharge Stable Kia Carbajal discharged to home/self care in stable condition. Follow-up Information 1. [facility] [place] [facility]. Specialty: Obstetrics and Gynecology Why: OB follow up [address] [facility] [address] [id number] Contact information for after-discharge care Follow-up information has not been specified. New Prescriptions metoclopramide (REGLAN) 10 MG tablet Take 1 (one) tablet (10 mg total) by mouth 3 (three) times a day as needed (nausea) . Merry King MD 10/02/192331 Vomiting since sun, documented in this encounter Source Comments (unrecognize d section and content) In the event this informatio n is protected by the Federal Confidentiality of Alcohol and Drug Abuse Patient Records regulations: The Federal rules restrict any use of the information to criminally investigate or prosecute any alcohol or drug abuse patient.[facility] the event this information is protected by the Federal Confidentiality of Alcohol and Drug Abuse Patient Records regulations: The Federal rules restrict any use of the information to criminally investigate or prosecute any alcohol or drug abuse patient.[facility] the event this information is protected by the Federal Confidentiality of Alcohol and Drug Abuse Patient Records regulations: The Federal rules restrict any use of the information to criminally investigate or prosecute any alcohol or drug abuse patient.[facility] the event this information is protected by the Federal Confidentiality of Alcohol and Drug Abuse Patient Records regulations: The Federal rules restrict any use of the information to criminally investigate or prosecute any alcohol or drug abuse patient.[facility] the event this information is protected by the Federal Confidentiality of Alcohol and Drug Abuse Patient Records regulations: The Federal rules restrict any use of the information to criminally investigate or prosecute any alcohol or drug abuse patient.[facility] the event this information is protected by the Federal Confidentiality of Alcohol and Drug Abuse Patient Records regulations: The Federal rules restrict any use of the information to criminally investigate or prosecute any alcohol or drug abuse patient.[facility] Patient Care team informatio n (unrecognized section and content) Care Team Personnel Name: PHYSICIAN, NOT RECORDED Member Role: Primary Care Physician Name: Shaniqua Baker RN Position: AO RN Member Role: ED RN Name: ARISTIDES MEADE DO Position: ED Physician Member Role: ED Physician Address: Address: [facility] [address] FOR RECORDS PERTAINING TO PATIENTS WHO ARE OR HAVE BEEN ENROLLED IN A CHEMICAL DEPENDENCY/SUBSTANCEABUSE PROGRAM, SOME INFORMATION MAY BE OMITTED. This clinical summary was aggregated from multiple sources. Caution should be exercised in using it in the provision of clinical care. This summary normalizes information from multiple sources, and as a consequence, information in this document may materially change the coding, format and clinical context of patient data. In addition, data may be omitted in some cases. CLINICAL DECISIONS SHOULD BE BASED ON THE PRIMARY CLINICAL RECORDS. [facility] [employer] provides no warranty or guarantee of the accuracy or completeness of information in this document.
[2023-08-28] MEDS: Morphine 4 MG/ML Syringe IV (20:07)
[2023-08-28] MEDS: 0.9% Normal Saline (1000mL) 1,000 ML 1000 ML IV (20:07)
[2023-08-28] MEDS: Ondansetron 4 MG/2 ML Vial IV (20:07)
[2023-08-28 20:38] VITALS: BP 113/99; PULSE 78; RESP 14; O2SAT 98
[2023-08-28 22:02] VITALS: BP 110/80; PULSE 65; RESP 12; O2SAT 99
[2023-08-28] MEDS: Ceftriaxone 1 GM/50 ML BAG IV (22:52)
[2023-08-28 23:39] VITALS: BP 102/98; PULSE 66; RESP 12; TEMP 36.8; O2SAT 99
[2023-08-28] MEDS: HYDROcodone Bitartrate/Apap 5/325 Tablet PO (23:43)
[2023-08-30 10:50] LABS: Pathologist Review Reviewed
== END 2023-08-28 23:44 | disposition home or self-care (01) ==
PROVIDERS: Emergency Provider Emergency Medicine; Visit Provider Emergency Medicine
DX: N12 Tubulo-interstitial nephritis, not specified as acute or chronic (principal)
CPT/HCPCS: 74177; 80053; 81001; 84703; 85025; 87040; 87077; 87086; 87088; 87186; 96365; 96375; 99283; J7030; Q9967; A4216; J2405

== ENCOUNTER 2023-08-30 16:10 | Inpatient (IN) | payer BC, MEDICAID, SELFPAY ==
[2023-08-30 16:11] VITALS: BP 111/85; PULSE 98; RESP 18; TEMP 36.8; O2SAT 99; BMI 25.8
--- NOTE | 2023-08-30 16:54 | EDS_ITS ---
HPI History of Present Illness Chief Complaint: Abn Labs Informant: patient Narrative Narrative: Patient has had 4-5 days of urinary symptoms followed by pain throughout the lower abdomen and into the low back, subjective fevers and sweats, nausea, vomiting. She was seen here in the ER 2 days ago, diagnosed with bilateral pyelonephritis, she was called back today because one of her blood cultures returned positive and advised to come back to the ER. She states she is feeling no better, but she is not worse. She has been having mostly subjective fevers and sweats at night, last night included. She has been nauseated and vomiting, she has not been able to keep much down for the past 5 days. PFSH PFSH Medical History no medical history no medical history Home Medications ciprofloxacin HCl 500 mg tablet 500 mg PO BID #14 TABLETS 08/28/23 [Rx Last Taken 08/30/23] hydrocodone-acetaminophen 5-325mg 5mg-325mg 1 tab PO Q6H PRN Pain 08/30/23 [History Last Taken 08/30/23] Allergy/AdvReac Type Severity Reaction Status Date / Time No Known Allergies Allergy Verified 08/30/23 16:11 Social History Smoking Status: Never smoker ROS ROS ED Constitutional Constitutional ED: Reports fever(s), subjective and sweats Eyes Eyes: Denies change in vision or diplopia ENT ENT ED: Denies rhinorrhea or sore throat Cardiovascular Cardiovascular: Denies chest pain or palpitations Respiratory/Chest Respiratory/Chest: Denies cough or dyspnea Gastrointestinal Gastrointestinal: Reports abdominal pain, nausea and vomiting; Denies diarrhea Genitourinary Genitourinary ED: Reports dysuria and urinary frequency; Denies hematuria Musculoskeletal Musculoskeletal: Reports back pain; Denies neck pain Integumentary Denies abscess or rash Neurologic Neurologic: Denies headache(s), paresthesias or weakness Psychiatric Psychiatric: Denies anxiety or suicidal thoughts EXAM Physical Exam Const Vital Signs: 08/30/23 16:11 Temperature 98.3 F Temperature Source Temporal Pulse Rate 98 Respiratory Rate 18 Blood Pressure 111/85 H Blood Pressure Mean 93 Pulse Ox 99 Oxygen Delivery Method Room Air Positive well nourished and well developed Constitutional Narrative: Well-appearing in no distress General Appearance ED: well developed and NAD HEENT Reports moist mucous membranes normocephalic and atraumatic Eyes PERRL and EOMs intact bilaterally Neck full ROM and supple Resp normal respiratory effort and clear to auscultation bilaterally Cardio regular rate, regular rhythm and no murmurs GI non-distended GI Narrative: Diffuse lower abdominal tenderness without guarding or rebound Auscultation: normoactive bowel sounds Palpation: soft Back/Spine General Back: CVA tenderness bilateral and other FROM Extremity normal to inspection General Extremety ED: Negative for edema, pulses abnormal or tenderness General Extremity: Negative for edema or pulses abnormal Neuro oriented x3, CN's II-XII intact bilaterally and no sensory deficits noted Sensorium / Orientation: awake and alert Motor Exam: strength 5/5 throughout Skin no rashes or lesions noted and no wounds MDM MDM MDM Narrative Medical decision making narrative: CBC and chemistry/renal function repeated, empirically given IV fluids, medications for symptoms, and IV ceftriaxone. I reviewed old records. 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 Sensitivities are not back yet. The other blood culture is still pending. This is likely to be bacteremia due to the E. coli upper urinary tract infection. Therefore admission indicated. Lab Data Attestation: I reviewed the patient's lab results. Labs: Laboratory Results - last 24 hr 08/30/23 17:00 WBC 7.3 RBC 4.21 Hgb 12.2 Hct 37.0 MCV 87.9 MCH 29.0 MCHC 33.0 RDW Std Deviation 44.1 H RDW Coeff of Gladys 13.9 Plt Count 252 MPV 10.1 Immature Gran % (Auto) 0.500 Neut % (Auto) 80.1 H Lymph % (Auto) 9.8 L Preston % (Auto) 8.4 Eos % (Auto) 0.8 Baso % (Auto) 0.4 Absolute Neuts (auto) 5.9 Absolute Lymphs (auto) 0.72 L Nucleated RBC % 0 Sodium 137 Potassium 3.1 L Chloride 104 Carbon Dioxide 29.0 Anion Gap 4 L BUN 7 Creatinine 1.00 Estim Creat Clear Calc 75.57 Est GFR (MDRD) Af Amer 87 Est GFR (MDRD) Non-Af 72 BUN/Creatinine Ratio 7.0 L Glucose 102 Calcium 9.4 Management Discussion w/another healthcare provider: Hospitalist Discharge Plan Dx/Rx/DC Orders Clinical Impression: Pyelonephritis of right kidney, Pyelonephritis of left kidney, Bacteremia due to Gram-negative bacteria Disposition Disposition: Acute Care Hospital [facility] Discharge Date/Time: 08/30/23 18:04
[2023-08-30 17:05] LABS: Absolute Lymphocyte Count 0.72 X10^3/uL (0.83-4.51); Absolute Neutrophil Count 5.9 X10^3/uL (2.0-7.7); Basophil# 0.03 X10^3/uL; Basophil% 0.4 % (0-1); Eosinophil# 0.06 X10^3/uL; Eosinophils% 0.8 % (0-5); Hemoglobin 12.2 g/dL (12.0-15.0); Lymphocyte # 0.72 X10^3/ul (0.83-4.51); Lymphocyte % 9.8 % (19-41); Mean Corpuscular Volume 87.9 fL (81-99); Mean Platelet Vol. 10.1 fl (6.2-12.0); Monocyte# 0.62 X10^3/uL; Monocyte% 8.4 % (0-10); NRBC Flagged by Analyzer 0 % (0-5); Neutrophil # 5.87 X10^3/uL (2.7-7.7); Neutrophil % 80.1 % (47-70); Platelet Count 252 K/mm3 (150-450); RBC Distribution Width CV 13.9 % (11.6-14.6); RBC Distribution Width SD 44.1 fl (35.1-43.9); Red Blood Count 4.21 M/mm3 (4.2-5.4); White Blood Count 7.3 K/mm3 (4.4-11.0)
[2023-08-30] MEDS: Morphine 4 MG/ML Syringe IV (17:05)
[2023-08-30] MEDS: Ondansetron 4 MG/2 ML Vial IV (17:05)
[2023-08-30] MEDS: 0.9% Normal Saline (1000mL) 1,000 ML 999 ML IV (17:07)
[2023-08-30] MEDS: Ceftriaxone 1 GM/50 ML BAG IV (17:17)
[2023-08-30 17:18] LABS: Anion Gap 4 (5-15); BUN 7 mg/dL (7-18); Calcium,Total 9.4 mg/dL (8.5-10.1); Chloride 104 mmol/L (98-107); EST Glomerular Filtration Rate 72 mL/min (>60); Est Glom Filt Rate - Afr Amer 87 mL/min (>60); Estimated Creatinine Clearance 75.57 ml/min; Glucose 102 mg/dL (74-106); Potassium 3.1 mmol/L (3.5-5.1); Sodium Level 137 mmol/L (136-145)
--- NOTE | 2023-08-30 17:34 | PCM.HP.STD ---
HPI - General General Date of Admission: 08/30/23 Date of Service: 08/30/23 Chief Complaint: abd pain, urinary sx, n/v, poor po HPI Narrative EDGARD HEATH, is a 23-year-old female with no significant past medical history presented to [facility] 08/30/2023 for lower abdomen and back pain, subjective fevers, nausea and vomiting. Seen in the ED 2 days ago diagnosed with bilateral pyelo and was called back today because one of her blood cultures was positive. Reports she is not feeling better but is also not feeling worse. Mostly having subjective fevers, poor p.o. over the past 5 days and has still been nauseated. Her urine from 08/28 growing presumptive E. 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 In the ED 2 days ago white blood cell count 20.3 with left shift with a stable creatinine. Today white blood cell count improved and patient vitally stable however still feels unwell. Given positive blood cultures hospitalist contacted for admission. Patient endorses symptoms started 5 or 6 days ago and included abdominal and back pain as well as nausea, vomiting, poor p.o. intake and urinary symptoms, did have a headache yesterday and has been having diarrhea for 3 days, even prior to starting antibiotics. Reports she has been able to take a little bit more p.o. since she was here 2 days ago however minimally and still unable to maintain nutrition and hydration. Does not feel much better than 2 days ago but does not feel significantly worse. Still feels like she is having some night sweats and fevers. [facility] History no medical history Home Medications ciprofloxacin HCl 500 mg tablet 500 mg PO BID #14 TABLETS 08/28/23 [Rx Last Taken 08/30/23] hydrocodone-acetaminophen 5-325mg 5mg-325mg 1 tab PO Q6H PRN Pain 08/30/23 [History Last Taken 08/30/23] Allergy/AdvReac Type Severity Reaction Status Date / Time No Known Allergies Allergy Verified 08/30/23 16:11 Social History Smoking Status: Never smoker ROS ROS Narrative General: Has felt feverish HENT: Headache last night, denies stuffy nose, denies sore throat EYES: Denies changes in vision Resp: Denies cough, denies shortness of breath Cardiac: Denies chest pain GI: Abdominal pain, diarrhea, nausea and vomiting with poor p.o. : Dysuria Extremity: Denies swelling MSK: Denies weakness Neuro: Denies any numbness/tingling Heme: Denies any bleeding or bruising Skin: Denies rashes Psychiatric: No complaints voiced Vital Signs Vital Signs Vital Signs: 08/30/23 16:11 Temperature 98.3 F Temperature Source Temporal Pulse Rate 98 Respiratory Rate 18 Blood Pressure 111/85 H Blood Pressure Mean 93 Pulse Ox 99 Oxygen Delivery Method Room Air Weight Weight: 64.002 kg Body Mass Index (BMI) 25.8 Physical Exam Narrative General: Alert, oriented HEENT: Atraumatic, normocephalic Eyes: Anicteric, normal conjunctiva, extraocular movements grossly intact Neck: Supple Respiratory: Clear to auscultation bilaterally, normal respiratory effort Cardiovascular: Regular rate and rhythm GI: Soft, tender flanks and suprapubically without any rebound, guarding, rigidity Extremities: No edema Musculoskeletal: Moving all extremities Neuro: No overt focal neurological deficits Skin: No rashes appreciated Psych: Cooperative Results Lab / Micro Data 08/30/23 17:00 08/30/23 17:00 Labs: Laboratory Results - last 24 hr 08/30/23 17:00: WBC 7.3, RBC 4.21, Hgb 12.2, Hct 37.0, MCV 87.9, MCH 29.0, MCHC 33.0, RDW Std Deviation 44.1 H, RDW Coeff of Gladys 13.9, Plt Count 252, MPV 10.1, Immature Gran % (Auto) 0.500, Neut % (Auto) 80.1 H, Lymph % (Auto) 9.8 L, Bath % (Auto) 8.4, Eos % (Auto) 0.8, Baso % (Auto) 0.4, Absolute Neuts (auto) 5.9, Absolute Lymphs (auto) 0.72 L, Nucleated RBC % 0, Sodium 137, Potassium 3.1 L, Chloride 104, Carbon Dioxide 29.0, Anion Gap 4 L, BUN 7, Creatinine 1.00, Estim Creat Clear Calc 75.57, Est GFR (MDRD) Af Amer 87, Est GFR (MDRD) Non-Af 72, BUN/Creatinine Ratio 7.0 L, Glucose 102, Calcium 9.4 Assessment & Plan Assessment/Plan (1) Bacteremia due to Gram-negative bacteria: (2) Pyelonephritis of left kidney: (3) Pyelonephritis of right kidney: PLAN: Plan # Presumptive E. coli pyelonephritis with concern for bacteremia -UA on 08/28 concerning for UTI and patient has urine culture with presumptive E. coli awaiting sensitivities and 1 out of 2 blood cultures positive for gram-negative ashanti lactose manager provider relations's -Additionally patient with poor p.o. intake -CT scan from 08/28/2023 with suspected bilateral pyelonephritis -Will start IV antibiotics -Repeat cultures -IV fluids and supportive care -If culture still positive or patient continues to not improve may need repeat imaging to assess for any abscess formation #Hypokalemia -Replace #Diarrhea and n/v -Started prior to abx however given persistence w/ other GI complaints will check enteric panel -Replace K -check mag -Will trial full liquid diet and advance as tolerated #DVT ppx: Lovenox subcu Silvana Hernandez MD Charges/Coding Visit Charges Inpatient E&M: 19408 Init Hosp L1
--- NOTE | 2023-08-30 17:38 | NURSING ---
MED SURG RYDER PYELONEPHRITIS, BACTEREMIA
[2023-08-30 17:41] VITALS: BP 127/81; PULSE 70; RESP 18; TEMP 37.1; O2SAT 97
[2023-08-30 18:25] VITALS: BP 119/82; PULSE 87; RESP 16; TEMP 37.5; O2SAT 99
[2023-08-30 18:31] VITALS: BMI 25.4
[2023-08-30] MEDS: Potassium Chloride Oral Tablet 20 MEQ 60 MEQ PO (18:53)
[2023-08-30] MEDS: 0.9% Normal Saline (1000mL) 1,000 ML 75 ML IV (18:53)
--- OUTSIDE RECORDS SUMMARY | 2023-08-30 19:33 | XMS RPT_ITS | CCD ---
Author Name Unknown Address [address] [place] [address] Organization [facility] Care Team Providers Care Mulcher Operator Name Role Phone MERRY KING Attending Unavailable [...] 65.77 kg Lauren Luque APRN.CNP Work Phone: [facility] 2023 12:32-0400 Diastolic blood pressure 70 mm[Hg] Lauren Luque APRN.CNP Work Phone: [facility] 2023 12:32-0400 Heart rate 110 /min Lauren Luque APRN.CNP Work Phone: [facility] 2023 12:32-0400 Respiratory rate 16 /min Lauren Luque APRN.CNP Work Phone: [facility] 2023 12:32-0400 Systolic blood pressure 114 mm[Hg] Lauren Luque APRN.CNP Work Phone: [facility] 05-02-2023 21:57-[address] Cuff Size DR ARISTIDES MEADE DO [facility] 05-02-2023 21:57-[address] ARISTIDES MEADE DO [facility] 05-02-2023 21:57-[address] ARISTIDES MEADE DO [facility] 05-02-2023 21:57-0400 Diastolic Blood Pressure Non-Invasive [address] ARISTIDES MEADE DO [facility] 05-02-2023 21:57-0400 Heart rate 88 /min DR ARISTIDES MEADE DO [facility] 05-02-2023 21:57-0400 Respiratory rate 16 /min DR ARISTIDES MEADE DO [facility] 05-02-2023 21:57-0400 Systolic Blood Pressure Non-Invasive [address] ARISTIDES MEADE DO [facility] 05-02-2023 20:40-[address] Cuff Size [address] ARISTIDES MEADE DO [facility] 05-02-2023 20:40-[address] ARISTIDES MEADE DO [facility] 05-02-2023 20:40-[address] ARISTIDES MEADE DO [facility] 05-02-2023 20:40-0400 Body height 157.[address] ARISTIDES MEADE DO [facility] 05-02-2023 20:40-0400 Body temperature 97.7 [degF] DR ARISTIDES MEADE DO [facility] 05-02-2023 20:40-0400 Body weight 72.[address] ARISTIDES MEADE DO [facility] 05-02-2023 20:40-0400 Diastolic Blood Pressure Non-Invasive [address] ARISTIDES MEADE DO [facility] 05-02-2023 20:40-0400 Heart rate 80 /min DR ARISTIDES MEADE DO [facility] 05-02-2023 20:40-0400 Reason For Taking VItal Signs DR ARISTIDES MEADE DO [facility] 05-02-2023 20:40-0400 Respiratory rate 20 /min DR ARISTIDES MEADE DO [facility] 05-02-2023 20:40-0400 Systolic Blood Pressure Non-Invasive [address] ARISTIDES MEADE DO [facility] 03-08-2023 13:50-0400 Body temperature 100.09 [degF] Lauren Luque APRN.[employer] Work Phone: [facility] 03-08-2023 13:50-0400 Body weight 71.22 kg Lauren Luque APRN.[employer] Work Phone: [facility] 03-08-2023 13:50-0400 Diastolic blood pressure 70 mm[Hg] Lauren Luque APRN.[employer] Work Phone: [facility] 03-08-2023 13:50-0400 Heart rate 100 /min Lauren Luque APRN.[employer] Work Phone: [facility] 03-08-2023 13:50-0400 Respiratory rate 14 /min Lauren Luque APRN.[employer] Work Phone: [facility] 03-08-2023 13:50-0400 Systolic blood pressure 118 mm[Hg] Lauren Luque APRN.[employer] Work Phone: [facility] 10-02-2019 21:43-0500 Body Temperature 98.2 [degF] Merry King [facility] 10-02-2019 21:43-0500 Body weight 63.5 kg Merry King [facility] 10-02-2019 21:43-0500 BP Diastolic 84 mm[Hg] Merry King [facility] 10-02-2019 21:43-0500 BP Systolic 125 mm[Hg] Merry [facility] 10-02-2019 21:43-0500 Pulse (Heart Rate) 66 /min Merry [facility] 10-02-2019 21:43-0500 Pulse Oximetry 100 % Merry [facility] 10-02-2019 21:43-0500 Respiratory Rate 16 /min [facility] Encounters Encounter Date Encounter Type Care Provider Facility Start: 06-27-2023 Telephone encounter Jyoti Ballard APRN.[employer] Work Phone: [facility] Procedures Date Procedure Procedure Detail Performing Clinician Start: 04-26-2023 Antibody screen ALISA HESTER Plan of Treatment Date Care Activity Detail Author Start: 10-31-2028 Urine microalbumin profile [facility] Start: 03-30-2023 Influenza vaccination C [facility] Start: 07-30-2022 DEPRESSION ASSESSMENT DEPRESSION ASS ESSMENT [facility] Start: 2019 PAP TESTING PAP TESTING [facility] Start: 2016 HEPATITIS C SCREENING HEPATITIS C SC BARTOLO [facility] Start: 2016 HIV SCREENING HIV SCREENING [facility] Start: 2014 MENINGOCOCCAL B: Con 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 applying 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 tender based on risk (1 of 2 - Patient Seeks Protection) MENINGOCOCCAL B: Consider based on risk (1 of 2 - Patient Seeks Protection) [facility] Start: 2012 PEDS TO ADULT TRANSI TION ANNUAL ASSESSMENT PEDS TO ADULT TRANSITION ANNUAL ASSESSMENT [facility] Start: 2010 PEDS TO ADULT TRANSI TION INITIAL DISCUSSION PEDS TO ADULT TRANSITION INITIAL DISCUSSION [facility] Start: 2007 HPV VACCINE (1 - 2-d ose series) HPV VACCINE (1 - 2-dose series) [facility] Start: 1998 COVID-19 VACCINE (#1) COVID-19 VACCI NE (#1) [facility] Immunizations Immunization Date Immunization Notes Care Provider Isak quiles 07-14-2019 meningococcal polysaccharide (groups A, C, Y and W-135) diphtheria toxoid conjugate vaccine (MCV4P) Lauren Luque APRN.[facility] Work Phone: [facility] Work Phone: 10-31-2018 tetanus toxoid, redu anil diphtheria toxoid, and acellular pertussis vaccine, adsorbed Lauren Luque APRN.[employer] Work Phone: [facility] 07-04-2007 influenza virus vacc ine, unspecified formulation Lauren Luque APRN.[employer] Work Phone: [facility] Work Phone: 05-19-2004 diphtheria, tetanus toxoids and acellular pertussis vaccine Lauren Luque APRN.[facility] Work Phone: [facility] Work Phone: 05-19-2004 measles, mumps and rubella virus vaccine Lauren Luque APRN.[facility] Work Phone: [facility] Work Phone: 05-19-2004 poliovirus vaccine, inactivated Lauren Luque APRN.[facility] Work Phone: [facility] Work Phone: 05-19-2004 varicella virus vaccine Christopher Luque APRN.[employer] Work Phone: [facility] Work Phone: 11-02-1999 diphtheria, tetanus toxoids and acellular pertussis vaccine Lauren Luque APRN.[employer] Work Phone: [facility] Work Phone: 08-10-1999 haemophilus influenz ae type b vaccine, HbOC conjugate Lauren Luque APRN.[employer] Work Phone: [facility] Work Phone: 08-10-1999 measles, mumps and rubella virus vaccine Lauren Luque APRN.[employer] Work Phone: [facility] Work Phone: 08-10-1999 trivalent poliovirus vaccine, live, oral Lauren Luque APRN.[employer] Work Phone: [facility] Work Phone: 04-14-1999 diphtheria, tetanus toxoids and acellular pertussis vaccine Lauren Rebel WATERSHED ENGINEER.[employer] Work Phone: [facility] Work Phone: 04-14-1999 haemophilus influenz ae type b vaccine, HbOC conjugate Lauren Rebel WATERSHED ENGINEER.[facility] Work Phone: [facility] Work Phone: 04-14-1999 hepatitis B vaccine, pediatric or pediatric/adolescent dosage Lauren Rebel WATERSHED ENGINEER.[facility] Work Phone: [facility] Work Phone: 1998 diphtheria, tetanus toxoids and acellular pertussis vaccine Lauren Rebel WATERSHED ENGINEER.[facility] Work Phone: [facility] Work Phone: 1998 haemophilus influenz ae type b vaccine, HbOC conjugate Lauren Rebel WATERSHED ENGINEER.[facility] Work Phone: [facility] Work Phone: 1998 poliovirus vaccine, inactivated Lauren Vincenzooble WATERSHED ENGINEER.[facility] Work Phone: [facility] Work Phone: 1998 diphtheria, tetanus toxoids and acellular pertussis vaccine Lauren Luque WATERSHED ENGINEER.[facility] Work Phone: [facility] Work Phone: 1998 haemophilus influenz ae type b vaccine, HbOC conjugate Lauren Rebel WATERSHED ENGINEER.[employer] Work Phone: [facility] Work Phone: 1998 poliovirus vaccine, inactivated Lauren Vincenzooble WATERSHED ENGINEER.[facility] Work Phone: [facility] Work Phone: 1998 hepatitis B vaccine, pediatric or pediatric/adolescent dosage Lauren Vincenzooble WATERSHED ENGINEER.[facility] Work Phone: [facility] Work Phone: 1998 hepatitis B vaccine, pediatric or pediatric/adolescent dosage Lauren Luque WATERSHED ENGINEER.[facility] Work Phone: [facility] Work Phone: Payers Date Payer Category Payer Medicaid [id number] 2022 Medicaid [employer] [id number] 2022-Present [phone] [address] [place] [address] Medicaid [id number] 2022 Medicaid [id number] 2019 Medicaid [id number] 2019 Medicaid FOR[facility]LY [facility] MEDICAID COMMUNITY PLAN xxxxxxxxx 2019-Present xxxxxxxxx [id number] 2000 Unknown [id number] 1998 Unknown [id number] Social History Date Type Detail Facility Start: 10-02-2019 End: 06-26-2023 Tobacco smoking status NHIS Never smoker [facility] Start: 10-02-2019 Alcohol intake Lifetime non-d yoni (finding) [facility] Start: 10-02-2019 History SDOH Alcohol Frequency 1 [facility] Start: 2000 [facility] of tobacco use Passive smoker [facility] Start: 10-31-2018 End: 06-26-2023 Tobacco use and exposure Smokeless tobacco non-user [facility] Start: 03-05-2023 End: 06-26-2023 Alcohol intake Current non-drinker of alcohol (finding) [facility] Start: 03-06-2023 End: 03-08-2023 History of Social function [facility] Start: 03-06-2023 End: 03-08-2023 Social connection and isolation panel [facility] Do you belong to any clubs or organizations such as restoration groups, unions, fraternal or athletic groups, or school groups? No [facility] Are you now , , , , never or living with a partner? Refused [facility] How often to you hav e a drink containing alcohol? 2-4 times a month [facility] How many standard dr inks containing alcohol do you have on a typical day? 3 or 4 [facility] How often do you hav e 6 or more drinks on 1 occasion? Less than monthly [facility] How hard is it for y ou to pay for the very basics like food, housing, medical care, and heating Somewhat hard [facility] Do you feel stress - tense, restless, nervous, or anxious, or unable to sleep at night because your mind is troubled all the time - these days [OSQ] To some extent [facility] (I/We) worried karl er (my/our) food would run out before (I/we) got money to buy more. Never true [facility] The food that (I/we) bought just didn't last, and (I/we) didn't have money to get more. DK or Refused [facility] Start: 02-17-2009 End: 06-26-2023 Tobacco Comment Dad smokes outside the home [facility] Tobacco smoking status No Smokin g Status Entered [facility] Sex Assigned At Female [facility] Functional Status Date Assessment Result Facility 05-02-2023 Functional Status Independent [facility] 05-02-2023 Functional Status Awake, Resting [facility] Mental Status Date Assessment Result Facility 05-02-2023 Mental Status Orientation Oriented x 4 [facility] 05-02-2023 Mental Status [facility] Clinical Notes 03-08-2023 to 06-27-2023 Telephone Encounter [...] Jyoti Boyce APRN.CNP documented in this encounter [facility] 06-26-2023 Note HNO ID: [id number] Author: Lani Gramajo PA-C Service: ? Author Type: Physician Books Binder Type: Progress Notes Filed: 06/26/2023 4:57 PM Note Text: This note was created using [employer]. Subjective Kia Carbajal is a 23 year [...] - BACTERIAL VAGINOSIS NAAT Lani Gramajo PA-C [facility] 05-15-2023 Miscellaneous Notes Mother returns call to [...] Jordyn Javed RN documented in this encounter [facility] 05-12-2023 Note HNO ID: [id number] Author: Note, Interface Service: ? Author Type: ? Type: Progress Notes Filed: 05/12/2023 4:59 AM Note Text: Epic Scheduled Downtime: 05/12/2023 1:00:00 AM to 05/12/2023 1:28:00 AM [facility] 2023 Miscellaneous Notes Patient active on eMagin today- message sent Blossom Kenyon Cma Please let patient know xray is normal. documented in this encounter [facility] 2023 Note HNO ID: [id number] Author: Torri Henderson RT(R) Service: ? Author Type: Operating Systems Specialist Type: Progress Notes Filed: 2023 12:56 PM [...] SIGNED BY: RT Julita(R) 2023 12:47 PM [facility] 2023 Note HNO ID: [id number] Author: Lauren Luque APRN.CNP Service: ? Author [...] - XR CHEST 2V FRONTAL/LAT Lauren Luque, WATERSHED ENGINEER.[facility] 2023 History of Presen t illness [...] - XR CHEST 2V FRONTAL/LAT Lauren Luque APRN.[employer] documented in this encounter [facility] 05-02-2023 Hospital Discharg e instructions Follow Up Care 05/02/2023 20:28:28 With:Follow up with primary care provider Address:Unknown When:2-4 days [facility] Singhsuzi Lam 05-02-2023 Note Discharge Instructions Thank you for allowing [facility] to assist you with your healthcare needs. [...] to receive it can visit one of [facility] vaccine clinics. There are many vaccine clinic locations within the [facility]. For locations and available times, please visit [email or web address] [email or web address] It is important to note that some COVID mobile vaccine clinics are held outdoors and may be canceled in rainy or stormy conditions. To learn more about pediatric vaccinations (ages 5-11), we invite you to visit the [facility] webpage. [email or web address] [email or web address] [email or web address] To learn more about the COVID-19 vaccine, we invite you to visit the CDC website for a list of frequently asked questions. https://www.cdc.gov/coronavirus/ 2019-ncov/vaccines/faq.html [facility] Patient Portal Access Instructions: Stay connected with your healthcare team and access your personal medical information anytime with the [facility] Patient Portal. If you would like a full copy of your medical records please contact the [facility] Medical Records Department Sunday through Sunday between 8a.m. and 4:30p.m. Please follow the directions below to access the portal: 1.Access the email account you provided upon registration to the [facility].2.Look for an invitation email from [facility].3.Open the email and access the invitation link: Accept Invitation to [facility]4.Fill in the required fleming to create your account. Sign into [email or web address] with your username and password that you [...] you will allow to register on the [facility] Patient Portal for access to your information. You can also access the [facility] Patient Portal on the [employer]. Simply click on Health Records under Health Data and then click on the drop.io logo. HOW TO SAFELY DISPOSE OF PRESCRIPTION [...] Call your local pharmacy or go to http://bit.appCREAR/1L7Ox5l to find one close to you.3.Make use of household items: Use cat litter or old coffee grounds to dispose medications if other options are not available. Mix your drugs with these household products, seal them in an airtight container and throw it into the garbage. Call [facility]: [phone] to be sure your drugs can be [...] aware that I should contact my doctor. Patient/Proof Coin Collector Signature: Date/Time: Relationship to Patient: Witness Name/Signature: Date/Time: [facility] 05-02-2023 Note ORIGINAL EXAMINATION: CTA OF THE [...] 05/02/2023 10:21:39 PM Ordering Provider: ARISTIDES MEADE [facility] 05-02-2023 Note Sinus rhythm Electronic Signature: ARISTIDES MEADE DO 05/02/2023 20:46:42 [facility] 04-27-2023 Note HNO ID: [id number] Author: Nicole Carter [facility] Service: Pharmacy Author Type: Pharmacist Type: Plan [...] with Rx medications below Pager: Ext # [phone] [place] [phone] 04/27/2023 3:07 PM Medication List START taking [...] These medications were sent to [facility] [address] [place] [address] - [phone] [place] [address] lidocaine 4 % patch oxyCODONE IR 5 mg immediate release tablet senna-docusate 8.6-50 mg per tablet You can get these medications from any pharmacy You don't need a prescription for these medications acetaminophen 325 mg tablet [facility] 04-27-2023 Note HNO ID: [id number] Author: Nicole Carter RPh Service: Pharmacy Author [...] Pharmacist: Nicole Carter RPh Source of history: [facility] records, Care Everywhere records, OARRS, and RN med hx Medication nonadherence identified: No barriers noted Reconciliation completed: Yes Completed by: JEANNIE and [facility] All GUEST SERVICE AGENT medications addressed by JEANNIE Patient interested in Bedside Delivery Services or using OP Pharmacy at discharge? Unable to assess [facility] [address] [place] [id number] [id number] [facility] [phone] - [place] [address] [address] [facility] [phone] Allergies: No Known Allergies Prior to Admission Medications Prescriptions Last Dose Informant Patient Reported? Taking? cyclobenzaprine (FLEXERIL) 10 mg tablet No No Sig: Take 1 tablet by mouth three times daily as needed for muscle spasm. Facility-Administered Medications: None Nicole Carter RPh 04/27/2023 [facility] 04-27-2023 Note HNO ID: [id number] Author: Saurabh Galvan PA-C Service: General Surgery Author Type: Physician Books Binder Type: Progress Notes Filed: 04/27/2023 7:20 AM Note Text: Trauma Surgery Progress Note SERVICE DATE: 04/27/2023 Trauma Service Pager: For questions or concerns Mon-Fri 6a-5p please page [phone]. After 5pm and on Weekends and Holidays, please page [phone] if in ICU or [phone] if on RNF. SUBJECTIVE: NAEON. Pain controlled. [...] 0659 04/27/23 07 - 04/28/23 0659 Shift [id number] 24 Hour Total [id number] 24 Hour Total INTAKE Shift Total OUTPUT [...] questions or concerns Mon-Fri 6a-5p please page [phone]. After 5pm and on Weekends and Holidays, please page [phone] if in ICU or [phone] if on RNF. [facility] 03-09-2023 Miscellaneous Notes Call to pt and notified her of message below. Pt does note that the abx has helped some already. Hafsa Porras Ma Please let patient know her mono test was negative. documented in this encounter [facility] 03-08-2023 Note HNO ID: [id number] Author: Lauren Luque APRN.KP Service: ? Author [...] - AMOXICILLIN 500 MG CAPSULE Lauren Luque APRN.[facility] 03-08-2023 History of Presen t illness [...] - AMOXICILLIN 500 MG CAPSULE Lauren Luque APRN.[employer] documented in this encounter [facility] Evaluation + Plan note No data available for this section [facility] Diagnosis Closed fracture of multiple ribs of left side with routine healing, subsequent encounter- Primary [facility] Diagnosis BV (bacterial vaginosis)- Primary Vaginitis and vulvovaginitis, unspecified documented in this encounter [facility] Summary Purpose Family History No Family History Records FoundNo Family History Records FoundNo Family History Records Found No data available for this section No Family History Records FoundNo Family History Records FoundNo Family History Records Found Advance Directives No Advanced Directives Records FoundDocuments on File Type Date Recorded Patient Proof Coin Collector Expl anation Advance Directives and Livin g Will 10/02/2019 10:25 PM Discharge Instructions * Attachments The following attachments cannot be sent through Care Everywhere. * : Morning Sickness (Serbian) documented in this encounter Assessments Diagnosis Nausea and vomiting in Unspecified vomiting of , unspecified as to episode of care Additional Source Comments INFORMATION SOURCE (unrecogn ized section and content) DATE CREATED AUTHOR AUTHOR'S ORGANIZ ATION 10/01/2019 [facility] DATE CREATED AUTHOR AUTHOR'S ORGANIZ ATION 10/04/2019 [facility] DATE CREATED AUTHOR AUTHOR'S ORGANIZ ATION 05/13/2023 [facility] ([place]) DATE CREATED AUTHOR AUTHOR'S ORGANIZ ATION 05/18/2023 [facility] DATE CREATED AUTHOR AUTHOR'S ORGANIZ ATION 07/05/2023 [facility] Reason for Visit (unrecogniz ed section and content) Reason Comments ED Follow-up Reason Comments Results Reason Comments Hospital F/U Reason Comments Letter Merry King MD - 10/02/2019 11:29 PM Linus Heredia RN - 10/02/2019 9:45 PM EST ED Notes (unrecognized secti on and content) ED PROVIDER NOTE [facility] EMERGENCY [facility] NAME: Kia Carbajal AGE: 19 y.o. : 2000 VISIT DATE: 10/02/2019 CSN: [id number] PCP: Physician No Chief Complaint Patient presents [...] file Gets together: Not on file Attends synagogue service: Not on file Active member of [...] care in stable condition. Follow-up Information 1. [facility]. Specialty: Obstetrics and Gynecology Why: OB follow up [address] [facility] [address] [place] [address] Contact information for after-discharge care Follow-up information [...] or prosecute any alcohol or drug abuse patient.[facility] the event this information is protected by the Federal Confidentiality of Alcohol and Drug Abuse Patient Records regulations: The Federal rules restrict any use of the information to criminally investigate or prosecute any alcohol or drug abuse patient.[facility] the event this information is protected by the Federal Confidentiality of Alcohol and Drug Abuse Patient Records regulations: The Federal rules restrict any use of the information to criminally investigate or prosecute any alcohol or drug abuse patient.[facility] the event this information is protected by the Federal Confidentiality of Alcohol and Drug Abuse Patient Records regulations: The Federal rules restrict any use of the information to criminally investigate or prosecute any alcohol or drug abuse patient.[facility] Hospital[facility] the event this information is protected by the Federal Confidentiality of Alcohol and Drug Abuse Patient Records regulations: The Federal rules restrict any use of the information to criminally investigate or prosecute any alcohol or drug abuse patient.[facility] HospitalIn the event this information is protected by the Federal Confidentiality of Alcohol and Drug Abuse Patient Records regulations: The Federal rules restrict any use of the information to criminally investigate or prosecute any alcohol or drug abuse patient.[facility] Patient Care team informatio n (unrecognized section and content) Care Team Personnel Name: PHYSICIAN, NOT RECORDED Member Role: Primary Care Physician Name: Shaniqua Baker RN Position: AO RN Member Role: ED RN Name: ARISTIDES MEADE DO Position: ED Physician Member Role: ED Physician Address: Address: [facility] [address] FOR RECORDS PERTAINING TO PATIENTS WHO [...] BE BASED ON THE PRIMARY CLINICAL RECORDS. [facility] [employer] provides no warranty or guarantee of the accuracy or completeness of information in this document.
[2023-08-30 20:21] VITALS: BP 117/78; PULSE 101; RESP 18; TEMP 37.7; O2SAT 100
[2023-08-30] MEDS: Ibuprofen 600 MG Tablet PO (20:23)
--- OUTSIDE RECORDS SUMMARY | 2023-08-30 20:25 | XMS RPT_ITS | CCD ---
Author Name Unknown Address [address] [place] [address] Organization [facility] Care Team Providers Care Billiard Table Assembler Name Role Phone MERRY KING Attending Unavailable [...] Referring Unavailable LAUREN LUQUE Attending Unavailable LAUREN LUQEU Referring Unavailable Medications Current Medications Medication Drug [...] 65.77 kg Lauren Luque APRN.CNP Work Phone: [facility] 2023 12:32-0400 Diastolic blood pressure 70 mm[Hg] Lauren Luque APRN.CNP Work Phone: [facility] 2023 12:32-0400 Heart rate 110 /min Lauren Luque APRN.CNP Work Phone: [facility] 2023 12:32-0400 Respiratory rate 16 /min Lauren Luque APRN.CNP Work Phone: [facility] 2023 12:32-0400 Systolic blood pressure 114 mm[Hg] Lauren Luque APRN.CNP Work Phone: [facility] 05-02-2023 21:57-[address] Cuff Size DR ARISTIDES MEADE DO [facility] 05-02-2023 21:57-[address] ARISTIDES MEADE DO [facility] 05-02-2023 21:57-[address] ARISTIDES MEADE DO [facility] 05-02-2023 21:57-0400 Diastolic Blood Pressure Non-Invasive [address] ARISTIDES MEADE DO [facility] 05-02-2023 21:57-0400 Heart rate 88 /min DR ARISTIDES MEADE DO [facility] 05-02-2023 21:57-0400 Respiratory rate 16 /min DR ARISTIDES MEADE DO [facility] 05-02-2023 21:57-0400 Systolic Blood Pressure Non-Invasive [address] ARISTIDES MEADE DO [facility] 05-02-2023 20:40-[address] Cuff Size [address] ARISTIDES MEADE DO [facility] 05-02-2023 20:40-[address] ARISTIDES MEADE DO [facility] 05-02-2023 20:40-[address] ARISTIDES MEADE DO [facility] 05-02-2023 20:40-0400 Body height 157.[address] ARISTIDES MEADE DO [facility] 05-02-2023 20:40-0400 Body temperature 97.7 [degF] DR ARISTIDES MEADE DO [facility] 05-02-2023 20:40-0400 Body weight 72.[address] ARISTIDES MEADE DO [facility] 05-02-2023 20:40-0400 Diastolic Blood Pressure Non-Invasive [address] ARISTIDES MEADE DO [facility] 05-02-2023 20:40-0400 Heart rate 80 /min DR ARISTIDES MEADE DO [facility] 05-02-2023 20:40-0400 Reason For Taking VItal Signs DR ARISTIDES MEADE DO [facility] 05-02-2023 20:40-0400 Respiratory rate 20 /min DR ARISTIDES MEADE DO [facility] 05-02-2023 20:40-0400 Systolic Blood Pressure Non-Invasive [address] ARISTIDES MEADE DO [facility] 03-08-2023 13:50-0400 Body temperature 100.09 [degF] Lauren Luque APRN.MATERIAL MIXER Work Phone: [facility] 03-08-2023 13:50-0400 Body weight 71.22 kg Lauren Luque APRN.MATERIAL MIXER Work Phone: [facility] 03-08-2023 13:50-0400 Diastolic blood pressure 70 mm[Hg] Lauren Luque APRN.MATERIAL MIXER Work Phone: [facility] 03-08-2023 13:50-0400 Heart rate 100 /min Lauren Luque APRN.MATERIAL MIXER Work Phone: [facility] 03-08-2023 13:50-0400 Respiratory rate 14 /min Lauren Luque APRN.MATERIAL MIXER Work Phone: [facility] 03-08-2023 13:50-0400 Systolic blood pressure 118 mm[Hg] Lauren Luque APRN.MATERIAL MIXER Work Phone: [facility] 10-02-2019 21:43-0500 Body Temperature 98.2 [degF] [facility] 10-02-2019 21:43-0500 Body weight 63.5 kg [facility] 10-02-2019 21:43-0500 BP Diastolic 84 mm[Hg] [facility] 10-02-2019 21:43-0500 BP Systolic 125 mm[Hg] Merry [facility] 10-02-2019 21:43-0500 Pulse (Heart Rate) 66 /min Merry [facility] 10-02-2019 21:43-0500 Pulse Oximetry 100 % Merry [facility] 10-02-2019 21:43-0500 Respiratory Rate 16 /min [facility] Encounters Encounter Date Encounter Type Care Provider Facility Start: 06-27-2023 Telephone encounter Jyoti Ballard APRN.MATERIAL MIXER Work Phone: [facility] Procedures Date Procedure Procedure Detail Performing Clinician Start: 04-26-2023 Antibody screen ALISA HESTER Plan of Treatment Date Care Activity Detail Author Start: 10-31-2028 Urine microalbumin profile [facility] Start: 03-30-2023 Influenza vaccination C [facility] Start: 07-30-2022 DEPRESSION ASSESSMENT DEPRESSION ASS ESSMENT [facility] Start: 2019 PAP TESTING PAP TESTING [facility] Start: 2016 HEPATITIS C SCREENING HEPATITIS C SC BARTOLO [facility] Start: 2016 HIV SCREENING HIV SCREENING [facility] Start: 2014 MENINGOCOCCAL B: Con repairer helper based on risk (1 of 2 - Patient Seeks Protection) MENINGOCOCCAL B: Consider based on risk (1 of 2 - Patient Seeks Protection) [facility] Start: 2012 PEDS TO ADULT TRANSI TION ANNUAL ASSESSMENT PEDS TO ADULT TRANSITION ANNUAL ASSESSMENT [facility] Start: 2010 PEDS TO ADULT TRANSI TION INITIAL DISCUSSION PEDS TO ADULT TRANSITION INITIAL DISCUSSION [facility] Start: 2007 HPV VACCINE (1 - 2-d ose series) HPV VACCINE (1 - 2-dose series) [facility] Start: 1998 COVID-19 VACCINE (#1) COVID-19 VACCI NE (#1) [facility] Immunizations Immunization Date Immunization Notes Care Provider Isak quiles 07-14-2019 meningococcal polysaccharide (groups A, C, Y and W-135) diphtheria toxoid conjugate vaccine (MCV4P) Lauren Luque APRN.[facility] Work Phone: [facility] Work Phone: 10-31-2018 tetanus toxoid, redu anil diphtheria toxoid, and acellular pertussis vaccine, adsorbed Lauren Luque APRN.MATERIAL MIXER Work Phone: [facility] 07-04-2007 influenza virus vacc ine, unspecified formulation Lauren Luque APRN.MATERIAL MIXER Work Phone: [facility] Work Phone: 05-19-2004 diphtheria, tetanus toxoids and acellular pertussis vaccine Lauren Luque APRN.[facility] Work Phone: [facility] Work Phone: 05-19-2004 measles, mumps and rubella virus vaccine Lauren Luque APRN.[facility] Work Phone: [facility] Work Phone: 05-19-2004 poliovirus vaccine, inactivated Lauren Luque APRN.[facility] Work Phone: [facility] Work Phone: 05-19-2004 varicella virus vaccine Christopher Luque APRN.MATERIAL MIXER Work Phone: [facility] Work Phone: 11-02-1999 diphtheria, tetanus toxoids and acellular pertussis vaccine Lauren Luque APRN.MATERIAL MIXER Work Phone: [facility] Work Phone: 08-10-1999 haemophilus influenz ae type b vaccine, HbOC conjugate Lauren Luque APRN.MATERIAL MIXER Work Phone: [facility] Work Phone: 08-10-1999 measles, mumps and rubella virus vaccine Lauren Luque APRN.MATERIAL MIXER Work Phone: [facility] Work Phone: 08-10-1999 trivalent poliovirus vaccine, live, oral Lauren Luque APRN.MATERIAL MIXER Work Phone: [facility] Work Phone: 04-14-1999 diphtheria, tetanus toxoids and acellular pertussis vaccine Lauren Rebel THERMAL CUTTING MACHINE OPERATOR.MATERIAL MIXER Work Phone: [facility] Work Phone: 04-14-1999 haemophilus influenz ae type b vaccine, HbOC conjugate Lauren Rebel THERMAL CUTTING MACHINE OPERATOR.[facility] Work Phone: [facility] Work Phone: 04-14-1999 hepatitis B vaccine, pediatric or pediatric/adolescent dosage Lauren Rebel THERMAL CUTTING MACHINE OPERATOR.[facility] Work Phone: [facility] Work Phone: 1998 diphtheria, tetanus toxoids and acellular pertussis vaccine Lauren Rebel THERMAL CUTTING MACHINE OPERATOR.[facility] Work Phone: [facility] Work Phone: 1998 haemophilus influenz ae type b vaccine, HbOC conjugate Lauren Rebel THERMAL CUTTING MACHINE OPERATOR.[facility] Work Phone: [facility] Work Phone: 1998 poliovirus vaccine, inactivated Lauren Vincenzooble THERMAL CUTTING MACHINE OPERATOR.[facility] Work Phone: [facility] Work Phone: 1998 diphtheria, tetanus toxoids and acellular pertussis vaccine Lauren Luque THERMAL CUTTING MACHINE OPERATOR.[facility] Work Phone: [facility] Work Phone: 1998 haemophilus influenz ae type b vaccine, HbOC conjugate Lauren Rebel THERMAL CUTTING MACHINE OPERATOR.MATERIAL MIXER Work Phone: [facility] Work Phone: 1998 poliovirus vaccine, inactivated Lauren Vincenzooble THERMAL CUTTING MACHINE OPERATOR.[facility] Work Phone: [facility] Work Phone: 1998 hepatitis B vaccine, pediatric or pediatric/adolescent dosage Lauren Vincenzooble THERMAL CUTTING MACHINE OPERATOR.[facility] Work Phone: [facility] Work Phone: 1998 hepatitis B vaccine, pediatric or pediatric/adolescent dosage Lauren Luque THERMAL CUTTING MACHINE OPERATOR.[facility] Work Phone: [facility] Work Phone: Payers Date Payer Category Payer Medicaid [id number] 2022 Medicaid [employer] [id number] 2022-Present [phone] [address] [place] [address] Medicaid [id number] 2022 Medicaid [id number] 2019 Medicaid [id number] 2019 Medicaid [facility] MEDICAID COMMUNITY PLAN xxxxxxxxx 2019-Present xxxxxxxxx [id number] 1998 Unknown [id number] 1998 Unknown [id number] Social History Date Type Detail Facility Start: 10-02-2019 End: 06-26-2023 Tobacco smoking status NHIS Never smoker [facility] Start: 10-02-2019 Alcohol intake Lifetime non-d yoni (finding) [facility] Start: 10-02-2019 History SDOH Alcohol Frequency 1 [facility] Start: 2000 [facility] History of tobacco use Passive smoker [facility] Start: 10-31-2018 End: 06-26-2023 Tobacco use and exposure Smokeless tobacco non-user [facility] Start: 03-05-2023 End: 06-26-2023 Alcohol intake Current non-drinker of alcohol (finding) [facility] Start: 03-06-2023 End: 03-08-2023 History of Social function [facility] Start: 03-06-2023 End: 03-08-2023 Social connection and isolation panel [facility] Do you belong to any clubs or organizations such as buddhist groups, unions, fraternal or athletic groups, or school groups? No [facility] Are you now , , , , never or living with a partner? Refused [facility] How often to you hav e a drink containing alcohol? 2-4 times a month [facility] How many standard dr inks containing alcohol do you have on a typical day? 3 or 4 [facility] How often do you hav e 6 or more drinks on 1 occasion? Less than monthly [facility] How hard is it for y ou to pay for the very basics like food, housing, medical care, and heating Somewhat hard [facility] Do you feel stress - tense, restless, nervous, or anxious, or unable to sleep at night because your mind is troubled all the time - these days [OSQ] To some extent [facility] (I/We) worried karl er (my/our) food would run out before (I/we) got money to buy more. Never true [facility] The food that (I/we) bought just didn't last, and (I/we) didn't have money to get more. DK or Refused [facility] Start: 02-17-2009 End: 06-26-2023 Tobacco Comment Dad smokes outside the home [facility] Tobacco smoking status No Smokin g Status Entered [facility] Sex Assigned At Female [facility] Functional Status Date Assessment Result Facility 05-02-2023 Functional Status Independent [facility] spital [facility] 05-02-2023 Functional Status Awake, Resting [facility] Mental Status Date Assessment Result Facility 05-02-2023 Mental Status Orientation Oriented x 4 [facility] 05-02-2023 Mental Status [facility] Clinical Notes 03-08-2023 to 06-27-2023 Telephone Encounter [...] Jyoti Boyce APRN.CNP documented in this encounter [facility] 06-26-2023 Note HNO ID: [id number] Author: Lani Gramajo PA-C Service: ? Author Type: Physician Air Moving Technician Type: Progress Notes Filed: 06/26/2023 4:57 PM Note Text: This note was created using [employer] Subjective Kia Carbajal is a 23 year [...] - BACTERIAL VAGINOSIS NAAT Lani Gramajo PA-C [facility] 05-15-2023 Miscellaneous Notes Mother returns call to [...] Jordyn Javed RN documented in this encounter [facility] 05-12-2023 Note HNO ID: [id number] Author: Note, Interface Service: ? Author Type: ? Type: Progress Notes Filed: 05/12/2023 4:59 AM Note Text: Epic Scheduled Downtime: 05/12/2023 1:00:00 AM to 05/12/2023 1:28:00 AM [facility] 2023 Miscellaneous Notes Patient active on [employer] today- message sent Blossom Kenyon Cma Please let patient know xray is normal. documented in this encounter [facility] 2023 Note HNO ID: [id number] Author: Torri Henderson RT(R) Service: ? Author Type: Spool Sander Type: Progress Notes Filed: 2023 12:56 PM [...] SIGNED BY: RT Julita(R) 2023 12:47 PM [facility] 2023 Note HNO ID: [id number] Author: Lauren Luque APRN.CNP Service: ? Author [...] - XR CHEST 2V FRONTAL/LAT Lauren Luque, THERMAL CUTTING MACHINE OPERATOR.[facility] 2023 History of Presen t illness Narrative [...] - XR CHEST 2V FRONTAL/LAT Lauren Luque APRN.MATERIAL MIXER documented in this encounter [facility] 05-02-2023 Hospital Discharg e instructions Follow Up Care 05/02/2023 20:28:28 With:Follow up with primary care provider Address:Unknown When:2-4 days [facility] Singhsuzi Lam 05-02-2023 Note Discharge Instructions Thank you for allowing [facility] to assist you with your healthcare needs. [...] to receive it can visit one of [facility] vaccine clinics. There are many vaccine clinic locations within the [facility]. For locations and available times, please visit [email or web address] It is important to note that some COVID mobile vaccine clinics are held outdoors and may be canceled in rainy or stormy conditions. To learn more about pediatric vaccinations (ages 5-11), we invite you to visit the [facility] webpage. [email or web address] [email or web address]-[email or web address]-[email or web address] [email or web address] To learn more about the COVID-19 vaccine, we invite you to visit the CDC website for a list of frequently asked questions. https://www.cdc.gov/coronavirus/ 2019-ncov/vaccines/faq.html [facility] Patient Portal Access Instructions: Stay connected with your healthcare team and access your personal medical information anytime with the [facility] [employer] Patient Portal. If you would like a full copy of your medical records please contact the [facility] Medical Records Department Sunday through Sunday between 8a.m. and 4:30p.m. Please follow the directions below to access the portal: 1.Access the email account you provided upon registration to the [facility].2.Look for an invitation email from [facility].3.Open the email and access the invitation link: Accept Invitation to [facility]4.Fill in the required fleming to create your account. Sign into [email or web address] with your username and password that you [...] you will allow to register on the [facility] [employer] [facility] Patient Portal for access to your information. You can also access the [facility] [employer] [facility] [employer] [facility] Patient Portal on the [email or web address]. Simply click on Health Records under Health Data and then click on the [employer] logo. HOW TO SAFELY DISPOSE OF PRESCRIPTION [...] Call your local pharmacy or go to http://bit.Telecardia/6S9Hu5t to find one close to you.3.Make use of household items: Use cat litter or old coffee grounds to dispose medications if other options are not available. Mix your drugs with these household products, seal them in an airtight container and throw it into the garbage. Call [facility]: [phone] to be sure your drugs can be [...] aware that I should contact my doctor. Patient/Family And Consumer Science Professor Signature: Date/Time: Relationship to Patient: Witness Name/Signature: Date/Time: [facility] 05-02-2023 Note ORIGINAL EXAMINATION: CTA OF THE [...] 05/02/2023 10:21:39 PM Ordering Provider: ARISTIDES MEADE [facility] 05-02-2023 Note Sinus rhythm Electronic Signature: ARISTIDES MEADE DO 05/02/2023 20:46:42 [facility] 04-27-2023 Note HNO ID: [id number] Author: Nicole Carter [facility] [...] with Rx medications below Pager: Ext # [phone] or [phone] 04/27/2023 3:07 PM Medication List START taking [...] Your Medications These medications were sent to [facility] [address] [place] [address] - [phone] [place] [address] lidocaine 4 % patch oxyCODONE IR 5 mg immediate release tablet senna-docusate 8.6-50 mg per tablet You can get these medications from any pharmacy You don't need a prescription for these medications acetaminophen 325 mg tablet [facility] 04-27-2023 Note HNO ID: [id number] Author: Nicole Carter RPh Service: Pharmacy Author [...] Pharmacist: Nicole Carter RPh Source of history: [facility] records, Care Everywhere records, OARRS, and RN med hx Medication nonadherence identified: No barriers noted Reconciliation completed: Yes Completed by: JEANNIE and [facility] All STEAM SETTER medications addressed by JEANNIE Patient interested in Bedside Delivery Services or using OP Pharmacy at discharge? Unable to assess [facility] [address] [place] [id number] [phone] [facility] [phone] [address] - [place] [address] - [address] [facility] [phone] Allergies: No Known Allergies Prior to Admission Medications Prescriptions Last Dose Informant Patient Reported? Taking? cyclobenzaprine (FLEXERIL) 10 mg tablet No No Sig: Take 1 tablet by mouth three times daily as needed for muscle spasm. Facility-Administered Medications: None Nicole Carter RPh 04/27/2023 [facility] 04-27-2023 Note HNO ID: [id number] Author: Saurabh Galvan PA-C Service: General Surgery Author Type: Physician Air Moving Technician Type: Progress Notes Filed: 04/27/2023 7:20 AM Note Text: Trauma Surgery Progress Note SERVICE DATE: 04/27/2023 Trauma Service Pager: For questions or concerns Mon-Fri 6a-5p please page [phone]. After 5pm and on Weekends and Holidays, please page [phone] if in ICU or [phone] if on RNF. SUBJECTIVE: NAEON. Pain controlled. [...] 0659 04/27/23 07 - 04/28/23 0659 Shift [id number] 24 Hour Total [id number] 24 Hour Total INTAKE Shift Total OUTPUT [...] questions or concerns Mon-Fri 6a-5p please page [phone]. After 5pm and on Weekends and Holidays, please page [phone] if in ICU or [phone] if on RNF. [facility] 03-09-2023 Miscellaneous Notes Call to pt and notified her of message below. Pt does note that the abx has helped some already. Hafsa Porras Ma Please let patient know her mono test was negative. documented in this encounter [facility] 03-08-2023 Note HNO ID: [id number] Author: Lauren Luque APRN.KP Service: ? Author [...] INFECTIOUS MONO - AMOXICILLIN 500 MG CAPSULE Laurne Luque APRN.[facility] 03-08-2023 History of Presen t illness Narrative [...] - AMOXICILLIN 500 MG CAPSULE Lauren Luque APRN.MATERIAL MIXER documented in this encounter [facility] Evaluation + Plan note No data available for this section [facility] Diagnosis Closed fracture of multiple ribs of left side with routine healing, subsequent encounter- Primary [facility] Diagnosis BV (bacterial vaginosis)- Primary Vaginitis and vulvovaginitis, unspecified documented in this encounter [facility] Summary Purpose Family History No Family History Records FoundNo Family History Records FoundNo Family History Records Found No data available for this section No Family History Records FoundNo Family History Records FoundNo Family History Records Found Advance Directives No Advanced Directives Records FoundDocuments on File Type Date Recorded Patient Family And Consumer Science Professor Expl anation Advance Directives and Livin g Will 10/02/2019 10:25 PM Discharge Instructions * Attachments The following attachments cannot be sent through Care Everywhere. * : Morning Sickness (Congolese) documented in this encounter Assessments Diagnosis Nausea and vomiting in Unspecified vomiting of , unspecified as to episode of care Additional Source Comments INFORMATION SOURCE (unrecogn ized section and content) DATE CREATED AUTHOR AUTHOR'S ORGANIZ ATION 10/01/2019 [facility] DATE CREATED AUTHOR AUTHOR'S ORGANIZ ATION 10/04/2019 [facility] DATE CREATED AUTHOR AUTHOR'S ORGANIZ ATION 05/13/2023 [facility] ([place]) DATE CREATED AUTHOR AUTHOR'S ORGANIZ ATION 05/18/2023 [facility] DATE CREATED AUTHOR AUTHOR'S ORGANIZ ATION 07/05/2023 [facility] Reason for Visit (unrecogniz ed section and content) Reason Comments ED Follow-up Reason Comments Results Reason Comments Hospital F/U Reason Comments Letter Merry King MD - 10/02/2019 11:29 PM Linus Heredia RN - 10/02/2019 9:45 PM EST ED Notes (unrecognized secti on and content) ED PROVIDER NOTE [facility] NAME: Kia Carbajal AGE: 19 y.o. : 2000 VISIT DATE: 10/02/2019 CSN: [id number] PCP: Physician No Chief Complaint Patient presents [...] care in stable condition. Follow-up Information 1. [facility]. Specialty: Obstetrics and Gynecology Why: OB follow up [address] [facility] [address] [address] Contact information for after-discharge care Follow-up information [...] or prosecute any alcohol or drug abuse patient.[facility] the event this information is protected by the Federal Confidentiality of Alcohol and Drug Abuse Patient Records regulations: The Federal rules restrict any use of the information to criminally investigate or prosecute any alcohol or drug abuse patient.[facility] the event this information is protected by the Federal Confidentiality of Alcohol and Drug Abuse Patient Records regulations: The Federal rules restrict any use of the information to criminally investigate or prosecute any alcohol or drug abuse patient.[facility] the event this information is protected by the Federal Confidentiality of Alcohol and Drug Abuse Patient Records regulations: The Federal rules restrict any use of the information to criminally investigate or prosecute any alcohol or drug abuse patient.[facility] Hospital[facility] the event this information is protected by the Federal Confidentiality of Alcohol and Drug Abuse Patient Records regulations: The Federal rules restrict any use of the information to criminally investigate or prosecute any alcohol or drug abuse patient.[facility] Hospital[facility] the event this information is protected by the Federal Confidentiality of Alcohol and Drug Abuse Patient Records regulations: The Federal rules restrict any use of the information to criminally investigate or prosecute any alcohol or drug abuse patient.[facility] Patient Care team informatio n (unrecognized section and content) Care Team Personnel Name: PHYSICIAN, NOT RECORDED Member Role: Primary Care Physician Name: Shaniqua Baker RN Position: AO RN Member Role: ED RN Name: ARISTIDES MEADE DO Position: ED Physician Member Role: ED Physician Address: Address: [facility] [address] FOR RECORDS PERTAINING TO PATIENTS WHO [...] BE BASED ON THE PRIMARY CLINICAL RECORDS. [facility] [employer] provides no warranty or guarantee of the accuracy or completeness of information in this document.
[2023-08-30] MEDS: Acetaminophen 325 MG Tablet 650 MG PO (23:37)
[2023-08-30 23:41] VITALS: BP 100/68; PULSE 78; RESP 18; TEMP 36.5; O2SAT 99
[2023-08-31 04:33] VITALS: BP 115/80; PULSE 62; RESP 16; TEMP 36.5; O2SAT 100
[2023-08-31 06:49] LABS: Bacteria 0 SEEN /hpf (None Seen); Mucous, Urine 0 SEEN /hpf (<or=2+); Red Blood Cells-Urine 0 SEEN /hpf (0-5)
[2023-08-31 06:54] LABS: Absolute Lymphocyte Count 0.97 X10^3/uL (0.83-4.51); Absolute Neutrophil Count 2.7 X10^3/uL (2.0-7.7); Basophil# 0.02 X10^3/uL; Basophil% 0.5 % (0-1); Eosinophil# 0.12 X10^3/uL; Eosinophils% 2.8 % (0-5); Hematocrit 35.8 % (37-47); Hemoglobin 11.9 g/dL (12.0-15.0); Lymphocyte # 0.97 X10^3/ul (0.83-4.51); Lymphocyte % 22.6 % (19-41); Mean Corp Hgb Conc 33.2 g/dL (32-36); Mean Corpuscular Hgb 29.5 pg (27.0-32.0); Mean Corpuscular Volume 88.6 fL (81-99); Mean Platelet Vol. 10.5 fl (6.2-12.0); Monocyte# 0.45 X10^3/uL; Monocyte% 10.5 % (0-10); NRBC Flagged by Analyzer 0 % (0-5); Neutrophil # 2.71 X10^3/uL (2.7-7.7); Neutrophil % 62.9 % (47-70); Platelet Count 210 K/mm3 (150-450); RBC Distribution Width CV 13.9 % (11.6-14.6); RBC Distribution Width SD 45.1 fl (35.1-43.9); Red Blood Count 4.04 M/mm3 (4.2-5.4); White Blood Count 4.3 K/mm3 (4.4-11.0)
[2023-08-31 07:19] LABS: Color, Urine Yellow (Yellow); Glucose, Dipstick Normal (Normal); Ketone-Dipstick Negative (Negative); Leukocyte Esterase-Dipstick 100 /ul (Negative); Nitrite-Dipstick Negative (Negative); Occult Blood-Urine 10 /ul (Negative); Protein-Dipstick 30 mg/dl (Negative); Specific Gravity, Urine 1.015 (1.002-1.030); Urine Bilirubin Dipstick Negative (Negative); Urine Clarity Clear (Clear); Urine Urobilinogen Normal (Normal)
[2023-08-31 07:27] LABS: Squamous Epithelial Cells - UA 0-5 SEEN /hpf (5-10); Transitional Epithelial - Ur 0-5 SEEN /hpf (0-5); White Blood Cells 10-25 SEEN /hpf (0-5)
[2023-08-31 07:28] LABS: Internal QC Validated? YES +Cl - CLEAR BKGD; Pregnancy, Urine Negative Negative
[2023-08-31 07:28] LABS: ALB/GLOB Ratio 0.6 RATIO (0.9-2.4); AST(SGOT) 28 U/L (15-37); Alanine Aminotransfer ALT/SGPT 24 U/L (13-56); Albumin, Serum 2.6 g/dL (3.2-5.0); Alkaline Phosphatase 94 U/L (45-117); Anion Gap 4 (5-15); BUN 7 mg/dL (7-18); BUN/Creat Ratio 8.1 RATIO (10-20); Calcium,Total 9.1 mg/dL (8.5-10.1); Chloride 113 mmol/L (98-107); Creatinine, Serum 0.86 mg/dL (0.55-1.02); EST Glomerular Filtration Rate 85 mL/min (>60); Est Glom Filt Rate - Afr Amer 103 mL/min (>60); Estimated Creatinine Clearance 87.87 ml/min; Globulin 4.7 g/dL (2.2-4.2); Glucose 88 mg/dL (74-106); Magnesium 2.3 mg/dL (1.6-2.6); Phosphorus 3.1 mg/dL (2.5-4.9); Potassium 3.5 mmol/L (3.5-5.1); Protein, Total 7.3 g/dL (6.4-8.2); Sodium Level 139 mmol/L (136-145); Thyroid Stim Hormone (TSH) 5.18 uIU/mL (0.358-3.74)
[2023-08-31] MEDS: 0.9% Normal Saline (1000mL) 1,000 ML 75 ML IV (07:46)
[2023-08-31 09:04] VITALS: BP 111/78; PULSE 87; RESP 16; TEMP 36.8; O2SAT 100
[2023-08-31] MEDS: Ciprofloxacin 500 MG Tablet PO (09:18)
--- NOTE | 2023-08-31 10:20 | CASEMGMT ---
SHIRLEY DOTSON Assessment: Face to Face with pt for initial transition planning/care coordination assessment. RN NILA introduced self and role at [facility], pt voices understanding and consents to assessment. Pt is A&O x4 and answers all questions appropriately at this time. Pt lying in bed in no distress. Care providers, pharmacy, and demographics verified/updated. Admitting Dx: bacteremia 2/2 UTI, poor po intake PCP:Lauren Luque Specialists:Denies Preferred Pharmacy:[facility] Insurance: [place] [facility] Prescription Benefit: yes LNOK: Emmanuel Moore, mother; Gurdeep Carbajal, father Living Arrangements: Pt lives with 3 year old dtr in a single story home with 3 steps to enter. Pt dtr is being cared for by pt's mother while she is in the hospital. Pt reports being I in ADL's and denies concerns at home. Transportation: Pt drives self and denies concerns with transportation. DME:Denies HHC/SNF: Denies hx of Pt states no concerns with going home at time of dc. Pt states no further concerns/needs. CM to follow. Advised pt to ask CM if any further question/concerns/needs arise, voices understanding. Pt Goal: Home Plan: Home
--- NOTE | 2023-08-31 10:22 | DCINST_ITS ---
Discharge Instructions Diet Discharge Diet: No restrictions Activity Discharge Activity: Return to Normal Activity Dressing / Incision Call your doctor if you observe: Fever of 101 or Higher, Shortness of breath, Dizziness, Fainting spells, Swelling in the ankles, Chest pain and Increased palpitations (irregular heartbeat) Follow Up Care Test Results: Test results from this visit will be discussed in further detail at your follow- up appointment, if applicable. Discharge Plan Admission Admit Date/Time: 08/30/23 17:34 Attending Provider: Trevor Farfan Primary Care Provider: Care Physician,No Primary Consulting Providers: Silvana Hernandez Discharge Orders/Prescriptions Prescriptions: New ciprofloxacin HCl [Cipro] 500 mg tablet 500 mg PO BID 4 Days Qty: 8 0RF Continued hydrocodone-acetaminophen 5-325 mg tablet 1 tab PO Q6H PRN (Reason: Pain) ciprofloxacin HCl 500 mg tablet 500 mg PO BID Qty: 14 0RF Referrals / Follow Up: Care Physician,No Primary [Primary Care Provider] - Disposition Disposition (needs filled in before D/C Order can be placed): Home, Self Care
--- NOTE | 2023-08-31 12:54 | PCM.DC.SUM ---
Providers Date of Admission: 08/30/23 Primary Care Physician: Lauren Luque, FIRST AID NURSE-C Reason For Visit: BACTEREMIA 2/2 UTI, POOR PO INTAKE Diagnosis Discharge Diagnosis (1) Bacteremia due to Gram-negative bacteria: Status: Acute Code(s): R78.81 - Bacteremia (2) Pyelonephritis of left kidney: Status: Acute Code(s): N12 - Tubulo-interstitial nephritis, not specified as acute or chronic (3) Pyelonephritis of right kidney: Status: Acute Code(s): N12 - Tubulo-interstitial nephritis, not specified as acute or chronic Medications at Discharge Home Medications ciprofloxacin HCl 500 mg tablet 500 mg PO BID #14 TABLETS 08/28/23 hydrocodone-acetaminophen 5-325mg 5mg-325mg 1 tab PO Q6H PRN Pain 08/30/23 ciprofloxacin HCl 500 mg tablet (Cipro) 500 mg PO BID 4 days #8 tabs 08/31/23 Hospital Course Operations None Procedures None Summary of Care Provided Minutes Spent on Discharge: 31 Hospital Course: Per HPI: EDGARD HEATH, is a 23-year-old female with no significant past medical history presented to [facility] 08/30/2023 for lower abdomen and back pain, subjective fevers, nausea and vomiting. Seen in the ED 2 days ago diagnosed with bilateral pyelo and was called back today because one of her blood cultures was positive. Reports she is not feeling better but is also not feeling worse. Mostly having subjective fevers, poor p.o. over the past 5 days and has still been nauseated. Her urine from 08/28 growing presumptive E. coli in 1 out of 2 blood cultures gram-negative ashanti lactose crotch breaker's. In the ED 2 days ago white blood cell count 20.3 with left shift with a stable creatinine. Today white blood cell count improved and patient vitally stable however still feels unwell. Given positive blood cultures hospitalist contacted for admission. Patient endorses symptoms started 5 or 6 days ago and included abdominal and back pain as well as nausea, vomiting, poor p.o. intake and urinary symptoms, did have a headache yesterday and has been having diarrhea for 3 days, even prior to starting antibiotics. Reports she has been able to take a little bit more p.o. since she was here 2 days ago however minimally and still unable to maintain nutrition and hydration. Does not feel much better than 2 days ago but does not feel significantly worse. Still feels like she is having some night sweats and fevers. Hospital Course: 1. 1. Gram-negative ashanti bacteremia due to a pansensitive E. coli from pyelonephritis?23-year-old female presented to the hospital on 08/28/2023 secondary to fevers and chills, she was found to have a UTI that did grow out a pansensitive E. coli. She was called back to return to the hospital because her blood cultures came back positive for gram-negative ashanti. She otherwise would not of come back to the hospital as she was not feeling any worse, she had only taken 2 doses of her p.o. antibiotics prior to coming back to the hospital. She was admitted for IV antibiotics and placed back on IV ceftriaxone however cultures demonstrated sensitivity to Cipro and her blood cultures on the were growing the same organism as her urine. I discussed with her the possibility for discharge and she expressed understanding of the risk benefits of going home and states that she feels much better today and would very much like to go home. I will give her another 4 days of Cipro to complete a 10-day course of oral antibiotics. I do recommend she follow-up with her PCP in 3 to 5 days for outpatient monitoring. Physical Exam Narrative General: Alert, Oriented x3, Cooperative, No apparent distress HEENT: Atraumatic, PERRLA, EOMI, Normocephalic Oral: Moist Mucosa Neck: Supple, No JVD Lungs: Clear to auscultation, Normal air movement, No rhonchi, No wheeze, No rales Cardiovascular: Regular rate, Regular Rhythm, Normal S1, Normal S2, No murmurs Abdomen: Soft, Non Tender, Non-Distended, No Hepato-splenomegaly Extremities: No edema, Capillary Refill Less than 3 Seconds Skin: No rashes, No breakdown Musculoskeletal: No Tenderness to Palpation of Joints or Extremities Neurological: No focal neurological deficits, Motor Exam 5/5 strength throughout, Sensory exam intact to light touch and pain Psych/Mental Status: Normal Affect, Appropriate Weight / BMI Weight Weight: 141 lb 1.533 oz Body Mass Index (BMI) 25.4 ABG / Lab / Microbiology Data 08/31/23 06:15 08/31/23 06:15 Laboratory: Laboratory Results - last 24 hr 08/30/23 17:00: WBC 7.3, RBC 4.21, Hgb 12.2, Hct 37.0, MCV 87.9, MCH 29.0, MCHC 33.0, RDW Std Deviation 44.1 H, RDW Coeff of Gladys 13.9, Plt Count 252, MPV 10.1, Immature Gran % (Auto) 0.500, Neut % (Auto) 80.1 H, Lymph % (Auto) 9.8 L, [place] % (Auto) 8.4, Eos % (Auto) 0.8, Baso % (Auto) 0.4, Absolute Neuts (auto) 5.9, Absolute Lymphs (auto) 0.72 L, Nucleated RBC % 0, Sodium 137, Potassium 3.1 L, Chloride 104, Carbon Dioxide 29.0, Anion Gap 4 L, BUN 7, Creatinine 1.00, Estim Creat Clear Calc 75.57, Est GFR (MDRD) Af Amer 87, Est GFR (MDRD) Non-Af 72, BUN/Creatinine Ratio 7.0 L, Glucose 102, Calcium 9.4 08/31/23 06:15: WBC 4.3 L, RBC 4.04 L, Hgb 11.9 L, Hct 35.8 L, MCV 88.6, MCH 29.5, MCHC 33.2, RDW Std Deviation 45.1 H, RDW Coeff of Gladys 13.9, Plt Count 210, MPV 10.5, Immature Gran % (Auto) 0.700, Neut % (Auto) 62.9, Lymph % (Auto) 22.6, [place] % (Auto) 10.5 H, Eos % (Auto) 2.8, Baso % (Auto) 0.5, Absolute Neuts (auto) 2.7, Absolute Lymphs (auto) 0.97, Nucleated RBC % 0, Sodium 139, Potassium 3.5, Chloride 113 H, Carbon Dioxide 22.0, Anion Gap 4 L, BUN 7, Creatinine 0.86, Estim Creat Clear Calc 87.87, Est GFR (MDRD) Af Amer 103, Est GFR (MDRD) Non-Af 85, BUN/Creatinine Ratio 8.1 L, Glucose 88, Calcium 9.1, Phosphorus 3.1, Magnesium 2.3, Total Bilirubin 0.30, AST 28, ALT 24, Alkaline Phosphatase 94, Total Protein 7.3, Albumin 2.6 L, Globulin 4.7 H, Albumin/Globulin Ratio 0.6 L, TSH 5.18 H 08/31/23 06:30: Urine Color Yellow, Urine Clarity Clear, Urine pH 6.0, Ur Specific [place] 1.015, Urine Protein 30 H, Urine Glucose (UA) Normal, Urine Ketones Negative, Urine Occult Blood 10 H, Urine Nitrite Negative, Urine Bilirubin Negative, Urine Urobilinogen Normal, Ur Leukocyte Esterase 100 H, Urine RBC 0 SEEN, Urine WBC 10-25 SEEN, Ur Squamous Epith Cells 0-5 SEEN, Ur Transition Epith Cell 0-5 SEEN, Urine Bacteria 0 SEEN, Urine Mucus 0 SEEN, Urine Test Negative Microbiology: Microbiology 08/30/23 23:07 Stool Enteric Bacteriology - Final 08/30/23 20:15 Stool Clostridioides difficile (PCR) - Final D/C Instructions Discharge Diet: No restrictions Call your doctor if you observe: Fever of 101 or Higher, Shortness of breath, Dizziness, Fainting spells, Swelling in the ankles, Chest pain and Increased palpitations (irregular heartbeat) Meaningful Use Info Meaningful Use Diagnoses (Choose all that apply): None applicable Discharge Plan Admission Admit Date/Time: 08/30/23 17:34 Attending Provider: Trevor Farfan Primary Care Provider: Lauren Luque Consulting Providers: Silvana Hernandez Discharge Orders/Prescriptions Prescriptions: New ciprofloxacin HCl [Cipro] 500 mg tablet 500 mg PO BID 4 Days Qty: 8 0RF Continued hydrocodone-acetaminophen 5-325 mg tablet 1 tab PO Q6H PRN (Reason: Pain) ciprofloxacin HCl 500 mg tablet 500 mg PO BID Qty: 14 0RF Referrals / Follow Up: Care Physician,No Primary [Non-Staff] - Disposition Disposition (needs filled in before D/C Order can be placed): Home, Self Care Charges/Coding Visit Charges Inpatient E&M: 52593 Disch Hosp >30min
== END 2023-08-31 13:27 | disposition home or self-care (01) | DRG 690 ==
LOC: ED 16:58 → MS3 20:22
PROVIDERS: Admitting Provider Internal Medicine; Emergency Provider Emergency Medicine; PCP Nurse Practitioner Family; Visit Provider Family Medicine
DX: N10 Acute pyelonephritis (principal); R78.81 Bacteremia; E87.6 Hypokalemia; R19.7 Diarrhea, unspecified; R11.2 Nausea with vomiting, unspecified; B96.20 Unspecified Escherichia coli [E. coli] as the cause of diseases classified elsewhere
CPT/HCPCS: 36415; 80048; 80053; 81001; 81025; 83735; 84100; 84443; 85025; 87040; 87086; 87493; 87506; 99283; J7030; A4216; J2405